=== PATIENT | male | born 1960 | race Caucasian/White ===

== ENCOUNTER 2016-06-07 17:34 | Observation (INO) ==
[2016-06-07] MEDS ORDERED: Potassium Chloride Elixir 20 MEQ/15 ML UDC PO STA (17:39)
--- NOTE | 2016-06-07 18:09 | Emergency Department Note ---
Disposition Clinical Impression: Hypokalemia Atrial fibrillation Qualifiers: Atrial fibrillation type: paroxysmal Qualified Code(s): I48.0 - Paroxysmal atrial fibrillation Disposition: Admitted As Inpatient Condition: Fair General Adult HPI - General Chief complaint: ED Chest Pain Stated complaint: CritLowPotassium/Chest pain Time Seen by Provider: 06/07/16 17:37 Source: patient, family Limitations: no limitations - History of Present Illness HPI Narrative: Mr. Moore, a 55yo male, presents from home by POV to the ER with CC: hypokalemia. Routing outpatient labwork was drawn today and his PCP phoned him to instruct him to present to the ER. Patient has a history of hypokalemia. He is symptomatic at this time. Onset 3 days ago. His symptoms are described as generalized malaise and weakness, bilateral hand numbness and tingling, exertional dyspnea. Patient's PCP had him on a reginem of 40mg KCl TID. She was contemplating adjustment to 60mg KCL TID. 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 After this, he became symptomatic. Anticoagulated on ASA 324mg PMH: CHF systolic, ACS with stent, HTN, HLD, COPD, CKD, DM II insulin dependent , paroxysmal A. Fib on cardizem CD and metoprolol, GERD, morbid obesity, GORGE, hx hypokalemic alkalosis. PCP: Yulia Casiano CNP Bag Machine Helper: Dr. Chavira Admits: malaise, weakness, numbness/tingling, chest palpitations, light headedness Denies: fever, chills nausea, vomiting, abd pain, headache, changes in vision Pain Scale: 0 - Related Data Home Medications Medication Instructions Recorded Confirmed Albuterol Sulfate [Ventolin Hfa] 2 puff IH Q4H PRN 02/22/15 06/07/16 Alprazolam [Xanax] 1 mg PO TID PRN 02/22/15 06/07/16 Atorvastatin [Lipitor] 40 mg PO HS 02/22/15 06/07/16 Fenofibrate [Lofibra] 160 mg PO QAM 02/22/15 06/07/16 Hydralazine HCl 25 mg PO BID 02/22/15 06/07/16 Oxycodone HCl/Acetaminophen 1 each PO TID PRN 02/22/15 06/07/16 [Percocet 7.5-325 mg Tablet] Pantoprazole Sodium [Protonix] 40 mg PO QAM 02/22/15 06/07/16 Beclomethasone Diprop 80mcg [QVAR 1 puff IH BID 05/17/15 06/07/16 80 mcg] Docusate Sodium [Colace] 100 mg PO BID 05/17/15 06/07/16 Aspirin 325 mg PO DAILY 08/31/15 06/07/16 Diltiazem CD (24hr) [Cardizem CD] 300 mg PO QPM 08/31/15 06/07/16 Polyethylene Glycol 3350 [MiraLAX] 17 gm PO DAILY 08/31/15 06/07/16 Insulin ASPART [Novolog Flexpen] 0 - 18 unit SQ TID MDD per sliding 11/24/15 scale Furosemide [Lasix] 60 mg PO BID 06/07/16 06/07/16 Gabapentin [Gabapentin] 600 mg PO TID 06/07/16 06/07/16 GlipiZIDE [Glipizide] 10 mg PO BID 06/07/16 06/07/16 Metolazone [Metolazone] 5 mg PO DAILY 06/07/16 06/07/16 Spironolactone [Aldactone] 25 mg PO DAILY 06/07/16 06/07/16 Previous Rx's Medication Instructions Recorded Insulin DETEMIR [Levemir] 30 unit SQ HS #100 ml 09/01/15 Metoprolol [Lopressor] 200 mg PO BID #120 tablet 09/01/15 Potassium Chloride 20 meq PO TID 30 Days 11/25/15 Allergies Allergy/AdvReac Type Severity Reaction Status Date / Time hydrocodone [From Vicodin] AdvReac Unknown Itching Verified 11/25/15 09:13 Morphine Sulfate AdvReac Unknown Vomiting Uncoded 05/17/15 09:10 All systems ED: reviewed and negative except as stated. (as per HPI) Past Medical History - Past Medical History Medical history: Reports: arthritis, atrial fibrillation, cancer, cardiomyopathy , CHF, COPD, coronary artery disease, dementia, diabetes, GERD, hyperlipidemia, hypertension, osteoporosis, renal disease, other Surgical history: Reports: angioplasty/stent, other Psychiatric history: Reports: anxiety, bipolar, depression - Social History Smoking Status: Current every day smoker Smokeless Tobacco Status: (hx alcoholism-quit Mar 2015) Alcohol use: Reports: none Drug use: Reports: none Physical Exam General: Patient is alert, oriented, and in no acute distress. HEENT: No facial asymmetry. Head is normocephalic and atraumatic. Trachea midline. No lymphadenopathy. Cardiovascular: Heart regular rate and rhythm without clicks, rubs, gallops, or murmurs. No JVD. PMI nondisplaced. Respiratory: Symmetric chest rise with good restaurant effort. Prolonged expiratory phase. Breath sounds have diffuse wheezes. No crackles or rhonchi. Abdomen: Obese. Bowel sounds present normoactive x-4 quadrants. Abdomen is soft , nondistended, and nontender. Unable to assess organomegaly secondary to patient's body habitus. Psych: Patient's affect is appropriate for situation. - General Limitations: no limitations General appearance: alert, in no apparent distress Course Course Narrative: Lab work from 11am today reviewed. will not repeat at this time. Will begin with 50 IU of KCL elixer. Anticipate admission for symptomatic hypokalemia, Gustavo , A. Fib. Vital Signs Temperature 98.3 F 06/07/16 17:39 Pulse Rate 93 06/07/16 17:39 Respiratory Rate 20 06/07/16 17:39 Blood Pressure 103/75 06/07/16 17:39 O2 Sat by Pulse Oximetry 95 06/07/16 17:39 Temperature 97.4 F L 06/07/16 21:20 Pulse Rate 89 06/07/16 21:20 Respiratory Rate 16 06/07/16 21:20 Blood Pressure 116/81 06/07/16 21:20 O2 Sat by Pulse Oximetry 96 06/07/16 21:20 Oxygen Delivery Oxygen Delivery Nasal Cannula
--- NOTE | 2016-06-07 19:25 | Emergency Department Note ---
Disposition Clinical Impression: Hypokalemia, Atrial fibrillation Disposition: Admitted As Inpatient Condition: Fair General Adult HPI - General Chief complaint: ED Chest Pain Stated complaint: CritLowPotassium/Chest pain Time Seen by Provider: 06/07/16 17:37 Source: patient, family Limitations: no limitations - History of Present Illness Pain Scale: 0 - Related Data Home Medications Medication Instructions Recorded Confirmed Albuterol Sulfate [Ventolin Hfa] 2 puff IH Q4H PRN 02/22/15 06/07/16 Alprazolam [Xanax] 1 mg PO TID PRN 02/22/15 06/07/16 Atorvastatin [Lipitor] 40 mg PO HS 02/22/15 06/07/16 Fenofibrate [Lofibra] 160 mg PO QAM 02/22/15 06/07/16 Hydralazine HCl 25 mg PO BID 02/22/15 06/07/16 Oxycodone HCl/Acetaminophen 1 each PO TID PRN 02/22/15 06/07/16 [Percocet 7.5-325 mg Tablet] Pantoprazole Sodium [Protonix] 40 mg PO QAM 02/22/15 06/07/16 Beclomethasone Diprop 80mcg [QVAR 1 puff IH BID 05/17/15 06/07/16 80 mcg] Docusate Sodium [Colace] 100 mg PO BID 05/17/15 06/07/16 Aspirin 325 mg PO DAILY 08/31/15 06/07/16 Diltiazem CD (24hr) [Cardizem CD] 300 mg PO QPM 08/31/15 06/07/16 Polyethylene Glycol 3350 [MiraLAX] 17 gm PO DAILY 08/31/15 06/07/16 Insulin ASPART [Novolog Flexpen] 0 - 18 unit SQ TID MDD per sliding 11/24/15 scale Furosemide [Lasix] 60 mg PO BID 06/07/16 06/07/16 Gabapentin [Gabapentin] 600 mg PO TID 06/07/16 06/07/16 GlipiZIDE [Glipizide] 10 mg PO BID 06/07/16 06/07/16 Metolazone [Metolazone] 5 mg PO DAILY 06/07/16 06/07/16 Spironolactone [Aldactone] 25 mg PO DAILY 06/07/16 06/07/16 Previous Rx's Medication Instructions Recorded Insulin DETEMIR [Levemir] 30 unit SQ HS #100 ml 09/01/15 Metoprolol [Lopressor] 200 mg PO BID #120 tablet 09/01/15 Potassium Chloride 20 meq PO TID 30 Days 11/25/15 Allergies Allergy/AdvReac Type Severity Reaction Status Date / Time hydrocodone [From Vicodin] AdvReac Unknown Itching Verified 11/25/15 09:13 Morphine Sulfate AdvReac Unknown Vomiting Uncoded 05/17/15 09:10 Past Medical History - Past Medical History Medical history: Reports: arthritis, atrial fibrillation, cancer, cardiomyopathy , CHF, COPD, coronary artery disease, dementia, diabetes, GERD, hyperlipidemia, hypertension, osteoporosis, renal disease, other Surgical history: Reports: angioplasty/stent, other Psychiatric history: Reports: anxiety, bipolar, depression - Social History Smoking Status: Current every day smoker Smokeless Tobacco Status: (hx alcoholism-quit Mar 2015) Alcohol use: Reports: none Drug use: Reports: none Physical Exam - General Limitations: no limitations General appearance: alert, in no apparent distress Course - Reevaluation(s) Reevaluation #1: I saw the patient with the resident, Dr. Danielson. Patient presents with an abnormally low potassium level of 2.6. He has been having a long history of trouble with low potassium. He has been admitted to the hospital for low potassium before. He has had some recent adjustments in his potassium and diuretic doses in the effort to bring his potassium up at today was very low. The concern is that the patient feels incredibly weak which is something new for the patient. He does not report any other sources of potassium loss like diarrhea. he denies any other acute illnesses. We gave him some oral potassium here. We have called the hospitalist and arranged admission. They requested an additional dose of oral potassium before the patient leaves the ER. We have ordered that and her waiting transport. Time: 19:24 Vital Signs Temperature 98.3 F 06/07/16 17:39 Pulse Rate 93 06/07/16 17:39 Respiratory Rate 20 06/07/16 17:39 Blood Pressure 103/75 06/07/16 17:39 O2 Sat by Pulse Oximetry 95 06/07/16 17:39 Temperature 97.4 F L 02/16/17 21:20 Pulse Rate 89 06/07/16 21:20 Respiratory Rate 16 06/07/16 21:20 Blood Pressure 116/81 06/07/16 21:20 O2 Sat by Pulse Oximetry 96 06/07/16 21:20 Oxygen Delivery Oxygen Delivery Nasal Cannula Attestation Statement - Attestation Attestation: I, Dr. Choudhury, examined this patient [id number] and my medical decision- making was reviewed with Dr. Crystal, Resident Physician. I agree with the documented findings, disposition and treatment plan as described except to the extent set forth below. Please see my progress notes for details.
[2016-06-07] MEDS ORDERED: Pantoprazole 40 MG VIAL IVP STA (20:07)
[2016-06-07] MEDS ORDERED: *HR* Promethazine 25 MG/ML VIAL IVP PRN (20:07)
[2016-06-07] MEDS ORDERED: Ketorolac 30 MG/ML VIAL IVP PRN (20:07)
[2016-06-07] MEDS ORDERED: Acetaminophen 325 MG TABLET PO PRN (20:07)
[2016-06-07] MEDS ORDERED: Benzonatate 100 MG CAPSULE PO PRN (20:07)
[2016-06-07] MEDS ORDERED: Naloxone 0.4 MG/ML INJ IVP PRN (20:07)
[2016-06-07] MEDS ORDERED: 0.9 % Sodium Chloride w KCl 20 MEQ/1,000 ML MLS IVC SCH (20:15)
--- NOTE | 2016-06-07 20:25 | Internal Med History&Physical ---
Date of Encounter: 06/07/16 Time of Encounter: 20:00 Assessment and Plan (1) Chest pain, rule out acute myocardial infarction Current visit: Yes Status: Acute . (2) Chest pain with moderate risk of acute coronary syndrome Current visit: Yes Status: Acute . (3) Hypokalemia, excessive renal losses Current visit: Yes Status: Acute . (4) Acute kidney injury superimposed on chronic kidney disease Current visit: Yes Status: Acute . (5) Chronic coronary artery disease Current visit: Yes Status: Chronic . (6) Chronic diastolic (congestive) heart failure Current visit: Yes Status: Chronic . (7) Chronic respiratory failure with hypoxia and hypercapnia Current visit: Yes Status: Chronic . (8) Dementia Current visit: Yes Status: Chronic . Qualifiers: Dementia type: unspecified type Dementia behavioral disturbance: without behavioral disturbance Qualified Code(s): F03.90 - Unspecified dementia without behavioral disturbance (9) Hypokalemic alkalosis Current visit: Yes Status: Acute . (10) Hypoventilation associated with obesity syndrome Current visit: Yes Status: Chronic . (11) GORGE (obstructive sleep apnea) Current visit: Yes Status: Chronic . (12) Atrial fibrillation Current visit: Yes Status: Chronic . Qualifiers: Atrial fibrillation type: paroxysmal Qualified Code(s): I48.0 - Paroxysmal atrial fibrillation (13) Bipolar disorder Current visit: Yes Status: Chronic . Qualifiers: Active/Remission status: remission status unspecified Qualified Code(s): F31.9 - Bipolar disorder, unspecified (14) Debility, unspecified Current visit: Yes Status: Chronic . (15) Morbid obesity with BMI of 45.0-49.9, adult Current visit: Yes Status: Chronic . (16) Nicotine dependence with nicotine-induced disorder Current visit: Yes Status: Chronic . Qualifiers: Nicotine product type: cigarettes Qualified Code(s): F17.219 - Nicotine dependence, cigarettes, with unspecified nicotine-induced disorders (17) Type 2 diabetes mellitus Current visit: Yes Status: Chronic . Qualifiers: Diabetes mellitus complication status: with unspecified complications Diabetes mellitus terminal superintendent insulin use: unspecified terminal superintendent insulin use status Qualified Code(s): E11.8 - Type 2 diabetes mellitus with unspecified complications Internal Medicine - H&P: HPI Chief complaint: Chest pain Admitted From: Emergency Dept Plans for Post Hospital Care: Home History of present illness: Mr. Moore is a 55 year old male with history significant for chronic hypokalemic metabolic-alkalosis, CKD III, type 2 diabetes mellitus, CAD/ PTCAstent/AMI, isch CMP/diastolic CHF, P atrial fibrillation, COPD-emphysema, chronic hypoxic hypercapnic respiratory failure, GORGE (nocturnal CPAP dependent)/ OHS, and she unspecified, hypertension, dyslipidemia, osteoarthritis/ osteoporosis, GERD, bipolar disorder/depression anxiety, history of chronic alcoholism/abstinent since 03/2015, obesity, nicotine dependency (>80pk-yrs). The patient was visited and interviewed and examined. The patient is admitted to [facility] via the emergency department when he presents in the company of family with reports of chest pain and recent laboratory tests showing very low potassium. Laboratory studies had been requested by his primary care physician. These were performed approximately 11 AM the day of admission. Measured potassium came back at 2.6. Patient acknowledged doing some generalized weakness and malaise preceding 3 days to let to his consultation with his primary care physician and measurement of his laboratory studies. He described his weakness is being in severe and new for him in spite of a very long history of problematic hypokalemia. He acknowledged some chest discomfort with palpitations, bilateral hand numbness and tingling as well as exertional dyspnea during this period of time as well. He denied any fevers chills or sweats. Denied nausea vomiting diarrhea constipation. Denied any dysuria frequency or hematuria. Denied any evidence of bleeding or increased easy bruisability. Medications have undergone a change as pertains to his potassium repletion. The patient previously had been on a regimen of 40 mEq of potassium chloride 3 times daily with anticipation of this increasing to 60 mEq tablets of potassium chloride 3 times daily. However recent evaluation by his assessment consultant I let the decrease in his potassium chloride repletion down to 20 mEq 3 times daily plus an adjustment in his chronic diuretic dosages as after this adjustment that he began to notice symptoms which became more severe in 3 days leading up to presentation. Findings of the ED: Temperature 98.3 pulse 90-113 respirations 20 BP 100-125/75- 95. O2 saturation 95% on 2 L per nasal cannula. Preadmission laboratory: Basic metabolic panel normal except potassium 2.6 chloride 89. Carbon dioxide 32. BUN 31 creatinine 1.46 GFR 51. Glucose 148 osmolality 295. Preliminary impression suggests severe, chronic recurrent, hyperkalemia in the setting of hypokalemic metabolic alkalosis. Likely due to renal tubular acidosis with renal wastage of potassium. Potassium chloride repletion will proceed as data is collected to fine tune the level of total tubular defect and possible treatment options. Patient is at risk for further clinical decline due to his presenting chief complaint, findings and comorbidities. Workup and treatments will proceed comprehensively. Cumulative laboratory and radiographic data base will be considered and discussed. Pertinent ancillary medical records including ECW and PCI documentation when available was reviewed and considered. Given the patient's presenting concerns, past medical history, clinical findings and symptoms, he is admitted at this time will undergo further evaluation and disposition. Orders were written as per the computerized physician order entry representative system.......................................................................... .................... Consultative opinions will be sought as clinical circumstances justify. Pain management needs will be addressed. Laboratory and radiographic data base will be updated as appropriate. Studies include: random urine electrolyes, UA, urine C/S, cardiac injury panel, BNP, CPK, metabolic and hematologic panel, magnesium, phosphorus, ionized calcium, thyroid panel, lipid profile, A1c, C-peptide, CRP, sedimentation rate, blood gas , lactic acid, UDS, aldosterone, renin activity, serologies, etc. Precautions: Aspiration, fall, delirium protocol/surveillance initiated. Telemetry with continuous hemodynamic monitoring and pulse oximetry initiated. Orthostatic vital sign. Empiric antibiotic coverage: pending culture data. Special studies: US retroperitoneum, chest x-ray, telemetry, EKG. Pulmonary toilet: Incentive spirometry, aerosol bronchodilator, mucolytic, antitussive, supplemental oxygen. Corticosteroid therapyPRN. CPAP/BiPAP supplemental oxygen delivery. Aerosol Mucomyst therapyPRN. Fluid and electrolyte repletion efforts will proceed. Careful attention to fluid balance and renal recovery will be emphasized. Avoidance of nephrotoxic exposure and adverse drug drug interaction in the setting of impaired renal function will be monitored closely. Acute coronary syndrome protocol/surveillance initiated. Beta edna, aspirin , statin,. As needed nitrates. As needed morphine. Supplemental oxygen. Currently on RAJAT inhibitor or arm due to ongoing potassium sparing diuretic therapies. Prescribed diuretic treatments (metolazone, Aldactone, furosemide) with held pending repletion of potassium chloride deficit. DVT and PUD prophylaxis initiated: PPI therapy, intermittent pneumatic cuffs/ TEDs. Subcutaneous heparin/Lovenox. Early ambulation will be encouraged. Immunization updates recommended. Influenza and pneumococcal vaccinations as part of ongoing preventative healthcare recommendations strongly recommended. Smoking cessation counseling briefly addressed. Patient accepts nicotine substitution during this admission. Advanced care directive discussion briefly addressed. Patient does not declare any healthcare restrictions at this time. Cardiovascular risk appraisal and cardiovascular risk reduction efforts will be emphasized. Physical and occupational therapy may be consulted to evaluate/assess patient's functional capacity and progress mobility if circumstances justify. Sliding scale/basal/nutritional insulin coverage, ADA dietary restraint and schedule an as-needed basis fingerstick glucose assessments were initiated. Nutrition/diabetes education counseling may be considered as circumstances justify. Outpatient medication schedules will be reviewed, confirmed and facilitated as appropriate. Reconciliation of home treatments including adjustments, substitutions and reintroduction into the treatment regimen will address necessary maintenance therapies for chronic pre-existing medical conditions. Plan of care has been reviewed and discussed in detail with the patient. Questions addressed. Hospital course will depend upon clinical findings, treatment response and potential consultative interventions. Patient is at risk for further acute clinical decline and morbidity due to his presenting chief complaints, findings and comorbidities. Condition is serious. Prognosis is guarded. CODE STATUS is full. Past Med Surg Social Fam HX - Past Medical History Source: old records reviewed Medical history: arthritis, atrial fibrillation, cancer, cardiomyopathy, CHF, COPD (Hypoxic-hypercapnic respiratory failure. GORGE on CPAP. OHS.), coronary artery disease, dementia, diabetes, GERD, hyperlipidemia, hypertension, osteoporosis (Chronic musculoskeletal pain syndrome.), renal disease, other ( History of alcohol abuse and dependency; abstinent since 2014.) Psychiatric history: anxiety, bipolar, depression, other - Past Surgical History Surgical History: angioplasty/stent, other - Social History Smoking Status: Heavy tobacco smoker Packs per day: 2ppd x40yrs Smokeless Tobacco Status: (hx alcoholism-quit Mar 2015) Alcohol use: none, unknown (Prior history of 8-10 beers per day mostly for adult life. Reports abstinence since 2014.) Drug use: none, unknown Occupational status: unemployed, disabled Current living situation: Home - Independent Activity Level: Independent ambulation, Mostly sedentary Recent Out of Country Travel Within the Last 8 Weeks: No Exposure or Possible Exposure to Illness During Travel: No - Family History Father Adopted: No Family Member Ethnicity: Non- Living Status: Still Living Hx Family Cardiac Disorders: Yes Mother Living Status: Still Living Internal Medicine - H&P: Meds Albuterol Sulfate [Ventolin Hfa] 2 puff IH Q4H PRN 02/22/15 [History] Alprazolam [Xanax] 1 mg PO TID PRN 02/22/15 [History] Atorvastatin [Lipitor] 40 mg PO HS 02/22/15 [History] Fenofibrate [Lofibra] 160 mg PO QAM 02/22/15 [History] Hydralazine HCl 25 mg PO BID 02/22/15 [History] Oxycodone HCl/Acetaminophen [Percocet 7.5-325 mg Tablet] 1 each PO TID PRN 02/22 [History] Pantoprazole Sodium [Protonix] 40 mg PO QAM 02/22/15 [History] Beclomethasone Diprop 80mcg [QVAR 80 mcg] 1 puff IH BID 05/17/15 [History] Docusate Sodium [Colace] 100 mg PO BID 05/17/15 [History] Aspirin 325 mg PO DAILY 08/31/15 [History] Diltiazem CD (24hr) [Cardizem CD] 300 mg PO QPM 08/31/15 [History] Polyethylene Glycol 3350 [MiraLAX] 17 gm PO DAILY 08/31/15 [History] Insulin DETEMIR [Levemir] 30 unit SQ HS #100 ml 09/01/15 [Rx] Metoprolol [Lopressor] 200 mg PO BID #120 tablet 09/01/15 [Rx] Insulin ASPART [Novolog Flexpen] 0 - 18 unit SQ TID MDD per sliding scale [History] Potassium Chloride 20 meq PO TID 30 Days 11/25/15 [Rx] Furosemide [Lasix] 60 mg PO BID 06/07/16 [History] Gabapentin [Gabapentin] 600 mg PO TID 06/07/16 [History] GlipiZIDE [Glipizide] 10 mg PO BID 06/07/16 [History] Metolazone [Metolazone] 5 mg PO DAILY 06/07/16 [History] Spironolactone [Aldactone] 25 mg PO DAILY 06/07/16 [History] Allergies hydrocodone [From Vicodin] Adverse Reaction (Unknown, Verified 11/25/15 09:13) Itching Morphine Sulfate Adverse Reaction (Unknown, Uncoded 05/17/15 09:10) Vomiting All Systems PM: A 10-system review of systems was performed and is negative for pertinent findings except as documented above in the HPI. - Constitutional Constitutional: as per HPI, fatigue, malaise, weakness, no chills, no fever(s), no night sweats - EENT Eyes: as per HPI, no change in vision, no discharge, no pain, no photophobia Ears: as per HPI, no ear discharge, no ear pain, no tinnitus Nose, mouth and throat: as per HPI, no dysphagia, no nasal discharge, no neck pain, no sore throat - Cardiovascular Cardiovascular ROS IM: as per HPI, chest pain, lightheadedness, other, no diaphoresis, no dyspnea, no palpitations, no syncope - Respiratory Respiratory: as per HPI, wheezing, other, no cough, no dyspnea, no excessive phlegm production - Gastrointestinal Gastrointestinal: as per HPI, no abdominal pain, no diarrhea, no hematemesis, no hematochezia, no melena, no nausea, no vomiting - Genitourinary Genitourinary ROS male: as per HPI, other - Musculoskeletal Musculoskeletal ROS IM: as per HPI, no numbness, no tingling - Integumentary Integumentary IM: as per HPI, no rash, no unusual bruising - Neurological Neurological ROS: as per HPI, frequent falls, headache(s), weakness, other, no confusion, no convulsions, no focal weakness, no numbness, no tingling, no tremor(s) - Psychiatric Psychiatric: as per HPI - Endocrine Endocrine IM: as per HPI - Hematologic/Lymphatic Hematologic/Lymphatic: as per HPI - Allergic/Immunologic Allergic/Immunologic: as per HPI - Constitutional Vitals: Temp Pulse Resp BP Pulse Ox 98.3 F 113 20 125/95 95 06/07/16 17:39 06/07/16 18:28 06/07/16 18:28 06/07/16 18:28 06/07/16 18:28 General appearance: Present: mild distress, A&O X 3, morbidly obese, answers questions appropriately - Head Head exam: Present: atraumatic, normocephalic - Eye Eye exam: Present: EOMI, PERRL, conjuntiva pink, sclera anicteric Pupils: Present: normal accommodation, PERRL - ENT ENT exam: Present: mucous membranes moist, normal oropharynx - Neck Neck exam general surgery: Present: full ROM, supple, trachea midline. Absent: lymphadenopathy - Respiratory Respiratory exam: Present: decreased breath sounds, CTAB. Absent: accessory muscle use, rales, rhonchi, wheezes - Cardiovascular Cardiovascular exam: Present: distant heart sounds, RRR, +S1, +S2. Absent: diastolic murmur, gallop, rubs, systolic murmur - GI/Abdominal GI/Abdominal exam: Present: distended, normal bowel sounds, soft, no peritoneal signs. Absent: tenderness - Extremities Exam Extremities exam: Present: full ROM, warm, radial pulses palpable and symetrical. Absent: calf tenderness, cyanotic, pedal edema - Neurological Exam Neurological exam: Present: alert, CN II-XII intact, oriented X3, no focal deficits. Absent: pronater drift, facial droop, speech deficit - Psychiatric Psychiatric exam: Present: normal affect, normal mood - Skin Skin exam: Present: dry, intact, warm. Absent: petechiae, rash, urticaria, vesicles Internal Med - H&P Results - Labs CBC & Chem 7: 06/08/16 04:58 06/08/16 04:58 - Impressions Vital Signs Temp Pulse Resp BP Pulse Ox 06/07/16 18:28 113 20 125/95 95 06/07/16 17:50 112 20 108/88 95 06/07/16 17:43 96 06/07/16 17:39 98.3 F 93 20 103/75 95 Intake and Output 06/07/16 06/07/16 06/07/16 07:59 15:59 23:59 Other: Weight 155.582 kg Patient Weight 06/07/16 23:59 Weight 155.582 kg Allergies Allergy/AdvReac Type Severity Reaction Status Date / Time hydrocodone [From Vicodin] AdvReac Unknown Itching Verified 11/25/15 09:13 Morphine Sulfate AdvReac Unknown Vomiting Uncoded 05/17/15 09:10 Abnormal lab results VBG pH 7.47 pH Units (7.32-7.42) H 06/07/16 22:20 VBG pCO2 57 mmHg (41-51) H 06/07/16 22:20 VBG pO2 127 mmHg (25-40) H 06/07/16 22:20 VBG HCO3 41.5 mEq/L (21-27) H 06/07/16 22:20 Potassium 2.8 mEq/L (3.5-4.5) L 06/08/16 04:58 Chloride 91 mEq/L (98-109) L 06/08/16 04:58 Carbon Dioxide 34 mEq/L (19-29) H 06/08/16 04:58 BUN 33 mg/dL (8-26) H 06/08/16 04:58 Creatinine 1.65 mg/dL (0.72-1.25) H 06/08/16 04:58 Est GFR ( Amer) 52 (> 60) L 06/08/16 04:58 Est GFR (Non-Af Amer) 43 (> 60) L 06/08/16 04:58 Glucose 223 mg/dL (70-99) H 06/08/16 04:58 POC Glucose 216 (58-89) H 06/07/16 21:31 Hemoglobin A1c 7.8 % (-5.6) H 06/08/16 04:58 Calculated Osmolality 304 (280-300) H 06/08/16 04:58 Ionized Calcium 1.06 mmol/L (1.15-1.35) L 06/07/16 22:20 Globulin 3.7 g/dL (2.4-3.5) H 06/08/16 04:58 Albumin/Globulin Ratio 1.0 (1.1-2.2) L 06/08/16 04:58 Triglycerides 279 mg/dL (< 150) H 06/08/16 04:58 VLDL Cholesterol, Calc 56 mg/dL (< 31) H 06/08/16 04:58 HDL Cholesterol 25 mg/dL (40-59) L 06/08/16 04:58 Cholesterol/HDL Ratio 5.5 (0-4.9) H 06/08/16 04:58 U Benzodiazepines Scrn Positive ng/mL (Jkrtzt=549) H 06/07/16 22:30 Laboratory Results WBC 10.1 K/mcL (4.3-11.1) 06/08/16 04:58 RBC 5.24 M/mcL (4.19-5.50) 06/08/16 04:58 Hgb 15.4 g/dL (12.9-16.9) 06/08/16 04:58 Hct 44.6 % (37.5-50.1) 06/08/16 04:58 MCV 85.1 fL (83.0-100.0) 06/08/16 04:58 MCH 29.4 pg (28.0-33.3) 06/08/16 04:58 MCHC 34.5 g/dL (31.6-35.5) 06/08/16 04:58 RDW 13.8 % (11.5-14.5) 06/08/16 04:58 Plt Count 210 K/mcL (140-400) 06/08/16 04:58 MPV 11.6 fL (9.4-12.4) 06/08/16 04:58 Immature Gran % 0.5 % (0-4) 06/08/16 04:58 Seg Neutrophils % 61.9 % 06/08/16 04:58 Lymphocytes % 22.9 % 06/08/16 04:58 Monocytes % 11.8 % 06/08/16 04:58 Eosinophils % 2.6 % 06/08/16 04:58 Basophils % 0.3 % 06/08/16 04:58 Neutrophils # 6.3 K/mcL (1.6-8.9) 06/08/16 04:58 Lymphocytes # 2.3 K/mcL (0.6-4.6) 06/08/16 04:58 Monocytes # 1.2 K/mcL (0.0-1.3) 06/08/16 04:58 Eosinophils # 0.3 K/mcL (0.0-0.6) 06/08/16 04:58 Basophils # 0.0 K/mcL (0.0-0.2) 06/08/16 04:58 PT 11.4 Seconds (9.4-12.1) 06/08/16 04:58 INR 1.1 06/08/16 04:58 APTT 30.5 Seconds (26.0-36.0) 06/08/16 04:58 VBG pH 7.47 pH Units (7.32-7.42) H 06/07/16 22:20 VBG pCO2 57 mmHg (41-51) H 06/07/16 22:20 VBG pO2 127 mmHg (25-40) H 06/07/16 22:20 VBG HCO3 41.5 mEq/L (21-27) H 06/07/16 22:20 Sodium 140 mEq/L (136-145) 06/08/16 04:58 Potassium 2.8 mEq/L (3.5-4.5) L 06/08/16 04:58 Chloride 91 mEq/L (98-109) L 06/08/16 04:58 Carbon Dioxide 34 mEq/L (19-29) H 06/08/16 04:58 BUN 33 mg/dL (8-26) H 06/08/16 04:58 Creatinine 1.65 mg/dL (0.72-1.25) H 06/08/16 04:58 Est GFR ( Amer) 52 (> 60) L 06/08/16 04:58 Est GFR (Non-Af Amer) 43 (> 60) L 06/08/16 04:58 BUN/Creatinine Ratio 20 (6-26) 06/08/16 04:58 Glucose 223 mg/dL (70-99) H 06/08/16 04:58 POC Glucose 216 (58-89) H 06/07/16 21:31 Est Mean Plasma Glucose 177 mg/dl 06/08/16 04:58 Hemoglobin A1c 7.8 % (-5.6) H 06/08/16 04:58 Calculated Osmolality 304 (280-300) H 06/08/16 04:58 Calcium 10.1 mg/dL (8.6-10.8) 06/08/16 04:58 Ionized Calcium 1.06 mmol/L (1.15-1.35) L 06/07/16 22:20 Phosphorus 4.2 mg/dL (2.3-4.7) 06/07/16 20:48 Magnesium 2.0 mg/dL (1.6-2.6) 06/07/16 20:48 Total Bilirubin 0.7 mg/dL (0.2-1.2) 06/08/16 04:58 AST 22 Units/L (5-34) 06/08/16 04:58 ALT 20 Units/L (0-55) 06/08/16 04:58 Alkaline Phosphatase 71 Units/L (38-126) 06/08/16 04:58 Creatine Kinase 170 Units/L (30-200) 06/07/16 20:48 Troponin I 0.02 ng/mL (0-0.03) 06/07/16 22:20 B-Natriuretic Peptide 27 pg/mL (0-100) 06/08/16 04:58 Serum Total Protein 7.4 g/dL (6.0-8.3) 06/08/16 04:58 Albumin 3.7 g/dL (3.5-5.0) 06/08/16 04:58 Globulin 3.7 g/dL (2.4-3.5) H 06/08/16 04:58 Albumin/Globulin Ratio 1.0 (1.1-2.2) L 06/08/16 04:58 Triglycerides 279 mg/dL (< 150) H 06/08/16 04:58 Cholesterol 138 mg/dL (< 200) 06/08/16 04:58 LDL Cholesterol, Calc 57 mg/dL (0-99) 06/08/16 04:58 VLDL Cholesterol, Calc 56 mg/dL (< 31) H 06/08/16 04:58 HDL Cholesterol 25 mg/dL (40-59) L 06/08/16 04:58 Cholesterol/HDL Ratio 5.5 (0-4.9) H 06/08/16 04:58 Amylase 34 Units/L (25-125) 06/07/16 20:48 Lipase 49 Units/L (8-78) 06/07/16 20:48 Urine Color Yellow (Yellow) 06/07/16 22:30 Urine Clarity Clear (Clear) 06/07/16 22:30 Urine pH 7.0 pH Units (5.0-8.0) 06/07/16 22:30 Ur Specific [place] 1.015 (1.010-1.025) 06/07/16 22:30 Urine Protein Negative mg/dL (Neg-Trace) 06/07/16 22:30 Urine Glucose (UA) Normal mg/dL (Normal) 06/07/16 22:30 Urine Ketones Negative mg/dL (Negative) 06/07/16 22:30 Urine Blood Negative (Negative) 06/07/16 22:30 Urine Nitrite Negative (Negative) 06/07/16 22:30 Urine Bilirubin Negative (Negative) 06/07/16 22:30 Urine Urobilinogen Normal mg/dL (Normal) 06/07/16 22:30 Ur Leukocyte Esterase Negative (Negative) 06/07/16 22:30 Urine Osmolality 333 mOsm/kg (300-1090) 06/07/16 22:30 Urine Creatinine 60 mg/dL 06/07/16 22:30 Urine Microalbumin 5 mg/L 06/07/16 22:30 Microalb/Creat Ratio 8 (0-30) 06/07/16 22:30 Protein/Creatinin Ratio 0.12 mg/mg (0-0.20) 06/07/16 22:30 Urine Sodium 63.0 mEq/L 06/07/16 22:30 Urine Potassium 50.5 mEq/L 06/07/16 22:30 Urine Chloride 91 mEq/L 06/07/16 22:30 Urine Calcium 4.7 mg/dL 06/07/16 22:30 Urine Total Protein < 7 mg/dL (1-14) 06/07/16 22:30 Urine Opiates Screen Negative ng/mL (Eligex=430) 06/07/16 22:30 Ur Barbiturates Screen Negative ng/mL (Odefas=744) 06/07/16 22:30 Ur Phencyclidine Scrn Negative ng/mL (Cutoff=25) 06/07/16 22:30 Ur Amphetamines Screen Negative ng/mL (Kbkghl=8303) 06/07/16 22:30 U Benzodiazepines Scrn Positive ng/mL (Jynubj=017) H 06/07/16 22:30 Urine Cocaine Screen Negative ng/mL (Cutoff= 300) 06/07/16 22:30 U Marijuana (THC) Screen Negative ng/mL (Cutoff = 50) 06/07/16 22:30 ED Activity Last Name: Oscar Status: Admitted Observation Patient First Name: Jovani Priority: 2 Middle: Maxim Condition: Birthdate: 1960 Arrival Date/Time: 06/07/16 17:34 Age at Arrival: 55 Arrival Mode: Ambulance Sex: M Triaged At: 06/07/16 17:39 Language: Kinyarwanda Time Seen by Provider: 06/07/16 17:37 Stated Complaint: CritLowPotassium/Chest pain Chief Complaint: ED Chest Pain Other Complaint: ED Recheck/Abnormal Lab/Rx ED Location: [facility] ED Area: 27 Station: 1 Group: S ED Provider: Jovani Choudhury ED Midlevel Provider: Macario Crystal ED Nurse: Primary Care Provider: Yulia Casiano Status/Phase DtTm/Value User/Action Admitted Observation Patient 06/07/16 19:50:07 Daemon,Background Referrals (Provider) Yulia Casiano ALMOND BLANCHER HAND Deleted 06/07/16 19:49:53 Anthony Joseph Attending Provider Leatha Jackson Admitting Provider Carter Escudero New With Doctor 06/07/16 18:43:49 Macario Crystal Referrals (Provider) Yulia Casiano CNP Added 06/07/16 18:30:22 Rakesh Turner Primary Care Provider Yulia Casiano CNP Edit 06/07/16 18:24:49 Macario Crystal Referrals (Provider) PCP NO Deleted 06/07/16 18:09:14 Macario Crystal Referrals (Provider) PCP NO Added 06/07/16 17:48:47 Rakesh Turner Primary Care Provider PCP NO New 06/07/16 17:39 Palmira Tim Other Complaint ED Recheck/Abnormal Lab/Rx Added Chief Complaint ED Chest Pain Edit 06/07/16 17:37:14 Jovani Choudhury Ed Provider Jovani Choudhury New With Midlevel 06/07/16 17:37:06 Macario Crystal Midlevel Provider Macario Crystal New In Room 06/07/16 17:35:09 Hipolito Curtis Stated Complaint CritLowPotassium/Chest pain Edit Received 06/07/16 17:34:13 Efraín Brito Chief Complaint ED Recheck/Abnormal Lab/Rx New Stated Complaint ABNORMAL LABS New Assessments and Treatments 12 lead ECG assessment Start: 06/07/16 17: 40 Freq: NOW Status: Complete Document 06/07/16 17:43 TJS (Rec: 06/07/16 17:43 TJS [id number]) EKG Time EKG Completed 17:41 EKG performed by Tonya EDT EKG shown to and signed by Dr. 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 [employer] Location Substernal Severity Moderate Radiation None Context Unknown Improves With Nothing Worsens With Nothing Associated Symptoms Dyspnea Treatment Prior To Arrival None Level Of Consciousness Awake Alert Appropriate Follows Commands Patient Orientation Person Place Time Respiratory Depth Normal Respiratory Effort Normal for Patient Spontaneous Non-Labored Respiratory Pattern Regular Oxygen Delivery Method Room Air Anterior & Posterior Bilateral Throughout Breath Sounds Diminished Cough Description None Hx PR No Hx Angina No Hx Congestive Heart Failure Yes Hx Coronary Artery Bypass Graft No Hx Coronary Stent No Hx Cardiac Arrhythmia Yes Hx AICD No Hx Pacemaker No Hx Deep Vein Thrombosis No Hx Clotting Problems No Hx Peripheral Vascular Disease No Hx Other Cardiac Disorders No Hx Stroke No Hx Diabetes Mellitus Type 1 No Hx Diabetes Mellitus Type 2 Yes Hx Recent Surgeries No Hx Recent Childbirth No Hx Recreational Drug Use No Hx Substance Use No ED Recheck Assessment Start: 06/07/16 17: 34 Freq: Status: Complete Document 06/07/16 17:45 TJS (Rec: 06/07/16 17:49 [id number]) Recheck Assessment Symptoms/Complaint Abnormal Lab Onset 06/07/16 Initial Visit (Ago) 06/07/16 Initial Visit For critical low potassium Returns Today For Called Because of Abnormal Labs Description of Abnormal Result Pt states his assessment consultant called him today for having a critically low potassium level . Symptoms Since First Visit No New Symptoms Context Called for Abnormal Lab Result Associated Symptoms Denies Other Symptoms Level Of Consciousness Awake Alert Appropriate Follows Commands Patient Orientation Person Place Time Skin Temperature Warm Skin Moisture Dry Skin Turgor Normal Respiratory Depth Normal Respiratory Effort Normal for Patient Spontaneous Non-Labored Respiratory Pattern Regular Nausea/Vomiting Presence None Falls precautions (Thomas-Rodriguez) Start: 06/07/16 17: 42 Freq: Status: Complete Document 06/07/16 17:43 TJS (Rec: 06/07/16 17:44 TJS [id number]) Marcial Fall Risk Assessment Age 18-59 years Gender Male Mental Status: Oriented & Cooperative Physical Status: Generalized Muscle Weakness Elimination: Independent & Continent Impairments: None Gait or Balance: Unsteady walking, standing, walker, crutches, furniture History of falls in past 6 months Multiple falls, more than 2 times Mood Stabilizer Medications Not taking prior to admission Benzodiazepines Not taking prior to admission Diuretics Not taking prior to admission Narcotics Not taking prior to admission Sedatives/Hypnotics Not taking prior to admission Atypical Anti-Psychotics Not taking prior to admission Alcohol Withdrawal Protocol Not on Alcohol Withdrawal Protocol Fall Risk Score 7 Fall Risk Level High Risk Fall Prevention Interventions Interventions in Place Bed in lowest position Top side rails up times 2 Secure brake on bed Use properly fitting non-skid footwear Call light and frequently needed objects within reach *Call, Don't Fall* Sign posted in room Fall education information reviewed with patient and/or family Encourage patient to call for assistance if needed Inspect environment for safety during face/face handoff or change of s Supervise and assist with toileting/ADLS as needed Interventions in Place [place] fall-risk tool kit with yellow band Frequent reorientation for confused patients Evaluate need for PT/OT consult Remain with patient during toileting If possible, move patient to room with best visual access Pharmacy consult for review of medications Med Rec Tech Start: 06/07/16 19: 19 Freq: Status: Active Document 06/07/16 19:19 EJD (Rec: 06/07/16 19:19 EJD [id number]) Pharmacy Med Rec Tech Home Medicatons Reconciled? Yes Was this to catch up from previous day No Does patient take 10 or more medications Yes ? Does patient request medication No education Do home meds include Coumadin, Xarelto, No Pradaxa, Eliquis Added Patient Preferred Pharmacy Yes Verified Allergies Yes Would Patient Like to use [place] [facility] No Patient Pharmacy Obtain Old EKG Start: 06/07/16 17: 42 Freq: Status: Complete Document 06/07/16 17:43 TJS (Rec: 06/07/16 17:44 [id number]) Patient Rounding Start: 06/07/16 17: 34 Freq: Q30M Status: Active Document 06/07/16 17:43 TJS (Rec: 06/07/16 17:44 TJS [id number]) Patient Rounding Safety Call Light Within Reach Bed Position Low Fall Precautions Bed Brake On Side Rails Up X2 Are the Floors Free From Trip Hazards? Yes Is the Room Free From Clutter? Yes Rounding Completed? Yes Patient Rounding Updated patient/family on Plan of Care Checked for Patient Positioning Patient Helped to Bathroom or Assisted with Bedpan or Urinal Patient Personal Items Placed Within Reach Checked Patient Pain Level Patient Awake Patient Verbalizes Pain/Symptoms No Improvement Document 06/07/16 18:28 TJS (Rec: 06/07/16 18:28 [id number]) Patient Rounding Safety Call Light Within Reach Bed Position Low Fall Precautions Bed Brake On Side Rails Up X2 Are the Floors Free From Trip Hazards? Yes Is the Room Free From Clutter? Yes Rounding Completed? Yes Patient Rounding Updated patient/family on Plan of Care Checked for Patient Positioning Patient Helped to Bathroom or Assisted with Bedpan or Urinal Patient Personal Items Placed Within Reach Checked Patient Pain Level Patient Awake Patient Verbalizes Pain/Symptoms No Improvement Document 06/07/16 18:52 TJS (Rec: 06/07/16 18:53 [id number]) Patient Rounding Safety Call Light Within Reach Bed Position Low Bed Brake On Side Rails Up X2 Are the Floors Free From Trip Hazards? Yes Is the Room Free From Clutter? Yes Rounding Completed? Yes Patient Rounding Updated patient/family on Plan of Care Checked for Patient Positioning Patient Helped to Bathroom or Assisted with Bedpan or Urinal Patient Personal Items Placed Within Reach Checked Patient Pain Level Patient Awake Patient Verbalizes Pain/Symptoms No Improvement RT Continuous Pulse Oximetry Start: 06/07/16 17: 34 Freq: Status: Complete Document 06/07/16 17:43 TJS (Rec: 06/07/16 17:44 TJS [id number]) Saline lock insertion/management Start: 06/07/16 17: 34 Freq: Status: Complete Document 06/07/16 18:52 TJS (Rec: 06/07/16 18:53 TJS [id number]) IV Insertion/Site Assessment IV Attempt 1 Successful Successful Blood drawn and sent to Lab No 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 Date of Insertion 06/07/16 Time of Insertion 18:50 Reason for IV Insertion Provide Access for IV Medication(s) IV Catheter Type Peripheral IV Gauge (gauge) 20 Site Observation Patent Dressing Applied Transparent Dressing Dry/Intact Patient Tolerance Tolerated Well Supplemental oxygen titration Start: 06/07/16 17: 34 Freq: Status: Complete Document 06/07/16 17:43 TJ (Rec: 06/07/16 17:44 [facility] [id number]) Oxygen Adminstration Oxygen Saturation (95-100) 96 Oxygen Delivery Method Room Air Triage Start: 06/07/16 17: 34 Freq: Status: Complete Document 06/07/16 17:39 [facility] (Rec: 06/07/16 17:42 [facility] [id number]) Triage Chief Complaint triage ED Chest Pain Patient Stated Complaint chest pain/critically low potassium [place] 2 Onset (ago) day(s) Description of Symptoms Pt states he received a phone call from his assessment consultant regarding labwork he had done today. He states he was told that he has a critically low potassium level. Pt states that he has also been having chest pain x 3 days. General Appearance alert in no apparent distress Work Related Injury? No Mode of arrival wheelchair Source patient family Limitations no limitations Ebola Risk: Travel/Contact With Anyone No From Affected Area/s Has Patient Experienced Ebola Symptoms No Temperature (97.6 F-99.6 F) 98.3 F Temperature Source Oral Pulse Rate 93 Respiratory Rate 20 Blood Pressure 103/75 O2 Sat by Pulse Oximetry (95-100) 95 Oxygen Delivery Room Air Height 1.83 m Weight 155.582 kg Weight Measurement Method Stated by Patient Pain Scale 0 Pain Scale Used Standard (1-10) Medical history arthritis atrial fibrillation cancer cardiomyopathy CHF COPD coronary artery disease dementia diabetes GERD hyperlipidemia hypertension osteoporosis renal disease other Additional surgical history PMH bladder surgery Psychiatric history anxiety bipolar depression Smoking Status Current every day smoker Smokeless Tobacco Status hx alcoholism-quit Mar 2015 Alcohol Use none Drug Use none Patient resides with/at Spouse Safety Concerns Feels Safe At This Time Do you currently feel hopless, have No thoughts of self harm, or thoughts of harming others History of fall in last 14 days? Yes Influenza vaccine up to date Yes Pneumonia vaccine up to date Yes Tetanus UTD yes Mother Family Member Living Status Still Living Father Adopted No Family Member Ethnicity Non- Family Member Living Status Still Living Hx Family Cardiac Disorders Yes Vital Signs Assessment Start: 06/07/16 17: 34 Freq: Status: Active Document 06/07/16 17:50 TJS (Rec: 06/07/16 17:50 TJS [id number]) ED Vital Signs Pain Reported No Pain Reported Blood Pressure 108/88 Blood Pressure Location Right Arm Source Automatic Cuff Position HOB Elevated Pulse Rate 112 Respiratory Rate 20 Depth Normal Effort Normal for Patient Spontaneous Non-Labored Pattern Regular Pulse Oximetry (95-100) 95 Oxygen Delivery Room Air Document 06/07/16 18:28 TJS (Rec: 06/07/16 18:28 TJS [id number]) ED Vital Signs Pain Reported No Pain Reported Blood Pressure 125/95 Blood Pressure Location Right Arm Source Automatic Cuff Position HOB Elevated Pulse Rate 113 Respiratory Rate 20 Depth Normal Effort Normal for Patient Spontaneous Non-Labored Pattern Regular Pulse Oximetry (95-100) 95 Oxygen Delivery Nasal Cannula Oxygen Flow Rate (LPM) 3 Discharge ED Provider: Jovani Choudhury Status: Admitted Observation Patient Time Seen by Provider: 06/07/16 17:37 Condition: Triaged At: 06/07/16 17:39 Emergency Discharge Date/Time: Emergency Discharge Disposition: Clinical Impression Emergency Discharge Comment: Admit Intervention Last Done ED Recheck Assessment 06/07/16 17:45 Query Result Recheck Symptoms/Complaint Abnormal Lab Recheck Onset 06/07/16 Recheck Initial Visit (Ago) 06/07/16 Recheck Initial Visit For critical low potassium Recheck Returns Today For CBOAL Recheck Description of Abnormal Result Pt states his assessment consultant called him today for having a critically low potassium level . 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 Chest Pain Location Substernal Chest Pain Severity Moderate Chest Pain Radiation None Chest Pain Context Unknown Chest Pain Improves With Nothing Chest Pain Worsens With Nothing Chest Pain Associated Symptoms Dyspnea Chest Pain Treatments Prior to Arrival None Level Of Consciousness Awake Alert Appropriate Follows Commands Patient Orientation Person Place Time Respiratory Depth Normal Respiratory Effort Normal for Patient Spontaneous Non-Labored Respiratory Pattern Regular Oxygen Delivery Method Room Air Anterior & Posterior Bilateral Throughout -Breath Sounds Diminished Cough Description None Hx Myocardial Infarction No Hx Angina No Hx Congestive Heart Failure Yes Hx Coronary Artery Bypass Graft No Hx Coronary Stent No Hx Cardiac Arrhythmia Yes Hx Auto Implanted Cardiovert Defib No Hx Pacemaker No Hx Deep Vein Thrombosis No Hx Clotting Problems No Hx Peripheral Vascular Disease No Hx Cardiac Disorders No HX Cerebrovascular Accident No Hx Diabetes Mellitus Type 1 No Hx Diabetes Mellitus Type 2 Yes Hx Surgeries No Hx Recent Childbirth No Hx Recreational Drug Use No Hx Substance Use No Observation Discharge Date/Time: Observation Discharge Disposition: Observation Discharge Comment: Instructions: Stand-Alone Forms: Prescriptions: Visit Report - Forms: - Referrals:
[2016-06-07 21:10] LABS: Phosphorous 4.2 mg/dL (2.3-4.7)
[2016-06-07] MEDS: ALPRAZolam 1 MG TABLET PO PRN (22:18)
[2016-06-07] MEDS: *HR* Heparin 5,000 UNIT/ML VIAL SQ SCH (22:18)
[2016-06-07 22:47] LABS: VBG HCO3 41.5 mEq/L (21-27); VBG PH 7.47 pH Units (7.32-7.42)
[2016-06-07 22:48] LABS: Bilirubin,Urine Negative (Negative); Blood,Urine Negative (Negative); Clarity,Urine Clear (Clear); Color,Urine Yellow (Yellow); Glucose,Urine (UA) Normal (Normal); Ketones,Urine Negative (Negative); Leukocyte Esterase,Urine Negative (Negative); Nitrite,Urine Negative (Negative); Protein,Urine Negative (Neg-Trace); Specific Gravity,Urine 1.015 (1.010-1.025); Urobilinogen,Urine Normal (Normal)
[2016-06-07 22:59] LABS: Amphetamine Screen,Urine Negative ng/mL (Cutoff=1000); Barbiturate Screen,Urine Negative ng/mL (Cutoff=200); Benzodiazepines Screen,Urine Positive ng/mL (Cutoff=200); Cannabinoid Screen,Urine Negative ng/mL (Cutoff = 50); Cocaine Screen,Urine Negative ng/mL (Cutoff= 300); Creatinine,Urine 60 mg/dL; Microalbum/Creatinine Ratio,Ur 8 (0-30); Microalbumin,Urine 5 mg/L; Opiate Screen,Urine Negative ng/mL (Cutoff=300); Phencyclidine Screen,Urine Negative ng/mL (Cutoff=25); Protein/Creatinine Ratio,Urine 0.12 mg/mg (0-0.20)
[2016-06-07 23:02] LABS: Chloride,Urine 91 mEq/L; Potassium,Urine 50.5 mEq/L
[2016-06-08] MEDS ORDERED: D5% in Water 1,000 ML IV PRN (00:54)
[2016-06-08] MEDS ORDERED: Dextrose Gel 15 GM PO PRN ×2 (00:54)
[2016-06-08] MEDS ORDERED: *HR* Dextrose 50 % in Water (Syg) 50 ML SYRINGE IVP PRN (00:54)
[2016-06-08 00:55] LABS: Osmolality,Urine 333 mOsm/kg (300-1090)
[2016-06-08] MEDS ORDERED: Calcium Gluconate 1,000 MG in D5% in Water 100 ML IVPB ONE (00:57)
[2016-06-08] MEDS ORDERED: Insulin LISPRO 300 UNITS/3 ML VIAL SQ SCH (01:00)
[2016-06-08] MEDS ORDERED: Insulin DETEMIR 100 UNIT/ML X5UNITS SQ SCH (01:00)
[2016-06-08 05:27] LABS: INR 1.1; Prothrombin Time 11.4 Seconds (9.4-12.1)
[2016-06-08 05:30] LABS: Activated Partial Thrombo Time 30.5 Seconds (26.0-36.0)
[2016-06-08 05:40] LABS: Basophils % 0.3 %; Eosinophils # 0.3 K/mcL (0.0-0.6); Eosinophils % 2.6 %; Hematocrit 44.6 % (37.5-50.1); Hemoglobin 15.4 g/dL (12.9-16.9); Immature Granulocytes % 0.5 % (0-4); Lymphocytes # 2.3 K/mcL (0.6-4.6); Lymphocytes % 22.9 %; Mean Corpuscular HGB Conc 34.5 g/dL (31.6-35.5); Mean Corpuscular Hemoglobin 29.4 pg (28.0-33.3); Mean Corpuscular Volume 85.1 fL (83.0-100.0); Mean Platelet Volume 11.6 fL (9.4-12.4); Monocytes # 1.2 K/mcL (0.0-1.3); Monocytes % 11.8 %; Neutrophils # 6.3 K/mcL (1.6-8.9); Platelet Count 210 K/mcL (140-400); Red Blood Count 5.24 M/mcL (4.19-5.50); Red Cell Distribution Width 13.8 % (11.5-14.5); Segmented Neutrophils % 61.9 %
[2016-06-08 05:47] LABS: Albumin 3.7 g/dL (3.5-5.0); Bilirubin,Total 0.7 mg/dL (0.2-1.2); Calcium 10.1 mg/dL (8.6-10.8); Chol/HDL Ratio 5.5 (0-4.9); Globulin 3.7 g/dL (2.4-3.5); Potassium 2.8 mEq/L (3.5-4.5); Total Protein 7.4 g/dL (6.0-8.3)
[2016-06-08 05:50] LABS: Hemoglobin A1C 7.8 %
[2016-06-08 06:12] LABS: Thyroid Stimulating Hormone 1.143 mcIU/mL (0.350-4.840)
[2016-06-08] MEDS: *HR* Heparin 5,000 UNIT/ML VIAL SQ SCH (06:17)
[2016-06-08] MEDS: ALPRAZolam 1 MG TABLET PO PRN (08:25)
[2016-06-08] MEDS: Gabapentin 300 MG CAPSULE PO SCH ×2 (08:25→14:42)
[2016-06-08] MEDS: Insulin LISPRO 300 UNITS/3 ML VIAL SQ SCH ×4 (08:26→12:43)
[2016-06-08] MEDS ORDERED: Metoprolol 100 MG TABLET PO SCH (09:00)
[2016-06-08] MEDS ORDERED: Aspirin 325 MG TABLET PO SCH (09:00)
[2016-06-08] MEDS ORDERED: hydrALAZINE 25 MG TABLET PO SCH (09:00)
[2016-06-08] MEDS ORDERED: Fenofibrate 54 MG TABLET PO SCH (09:00)
[2016-06-08] MEDS ORDERED: Beclomethasone 80mcg MDI IH SCH (10:00)
[2016-06-08 10:09] LABS: Calcium 9.6 mg/dL (8.6-10.8); Potassium 3.2 mEq/L (3.5-4.5)
--- NOTE | 2016-06-08 10:42 | Internal Med Progress Note ---
<Bailee Menon - Last Filed: 06/08/16 14:25> Date of Encounter: 06/08/16 Time of Encounter: 10:00 - Assessment and plan (1) Hypokalemia Status: Acute Assessment and plan: Patient with potassium of 2.8 upon admission associated with palpitations, numbness and tingling of bilateral hands Received 110 mEq K+ in ED yesterday evening KCl 40mg po TID IVF 50ml/h NS with 20 mEq K+ (2) Paroxysmal a-fib Status: Acute Assessment and plan: EKG with afib with RVR. Patient currently not on anticoagulation due to Etoh use, non-compliance, dementia, falls. Continue ASA (3) CAD (coronary artery disease) Status: Chronic Assessment and plan: Patient with history of MIx1 and stentx1. Negative stress test 09/26/14. Patient sees Dr. 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 Continue statin, fenofibrate, ASA, lopressor, hydralazine Qualifiers: Coronary Disease-Associated Artery/Lesion type: [place] artery [place] vs. transplanted heart: [place] heart Associated angina: without angina Qualified Code(s): I25.10 - Atherosclerotic heart disease of [place] coronary artery without angina pectoris (4) COPD (chronic obstructive pulmonary disease) Status: Chronic Assessment and plan: Patient requires 3L home O2 at night and oxygen supplementation with any activity. Continue O2 supplementatio Continue Qvar, albuterol prn Qualifiers: COPD type: emphysema Emphysema type: unspecified Qualified Code(s): J43.9 - Emphysema, unspecified (5) Tobacco abuse disorder Status: Acute Assessment and plan: Patient states that he stopped smoking yesterday after smoking 1ppd x 49 years. He does not want a nicotine patch. (6) History of alcohol abuse Status: Acute Assessment and plan: Patient states that he stopped drinking alcohol 9 months ago. Prior to this he drank 2 cases of 24 beers per day x 35 years. Thiamine Folate (7) Dementia Status: Chronic Qualifiers: Dementia type: unspecified type Dementia behavioral disturbance: without behavioral disturbance Qualified Code(s): F03.90 - Unspecified dementia without behavioral disturbance (8) DVT prophylaxis Status: Acute Assessment and plan: Heparin 5,000u q 12 hours - Time Spent With Patient 25 - 35 minutes - Subjective Interval history: Patient states that he is feeling better this morning. Patient states that he presented to the hospital yesterday because his potassium was too low. He believes this is from lasix. He recently went to see cardiology, Dr. Chavira who decreased patient's dose of lasix and decreased dose of KCl from 40 mEq TID to 20 mEq TID. Patient does not know how much lasix he is currently prescribed. He states that his manages all of his medications. Upon review of eCW, Dr. Chavira had changed patient's medicines as per the following: Metaolazone 5mg po BID decreased to 5mg po daily Lasix 80mg po BID decreased to 60mg po BID KCl 40mg po TID decreased to 20mg po BID Aldactone 25mg po daily added Patient states that felt his potassium was decreasing as he has been previously hospitalized for this problem. Patient's K+ was 2.9 at last measurement. He had heart palpitations with numbness and tingling to bilateral hands yesterday. He also admitted weakness and dyspnea. He admitted to having chest pain yesterday that he dismissed as heartburn. This morning, he states that the numbness has resolved. He denies any chest pain, palpitations or racing heart at this time. He denies headache, dizziness , dyspnea, abdominal pain, nausea, vomiting, diarrhea, numbness. He does admit to chronic dyspnea on exertion, chronic back pain, chronic memory problems. Patient states that he has history of GA x1, has had 3-4 caths in the past with 1 stent. Negative stress test 09/26/14. He had stress test and ECHO ordered by Dr. Chavira on 06/04/16. He uses 3L O2 at home at night and uses O2 with any activity. He has intermittent afib, but does not take anti-coagulation due to history of alcohol abuse, noncompliance, dementia, falls. - Constitutional Vitals: Temp Pulse Resp BP Pulse Ox 97.5 F L 95 18 115/79 98 06/08/16 07:00 06/08/16 07:00 06/08/16 10:17 06/08/16 07:00 06/08/16 10:17 General appearance: Present: mild distress, A&O X 3, morbidly obese, answers questions appropriately - Head Head exam: Present: atraumatic, normocephalic - Eye Eye exam: Present: EOMI, conjuntiva pink, sclera anicteric Pupils: Present: PERRL - Neck Neck exam general surgery: Present: supple, trachea midline. Absent: lymphadenopathy - Respiratory Respiratory exam: Present: CTAB, wheezes (inspiratory wheezes at left lung base) . Absent: accessory muscle use, rales, rhonchi - Cardiovascular Cardiovascular exam: Present: distant heart sounds, RRR, +S1, +S2. Absent: diastolic murmur, gallop, rubs, systolic murmur - GI/Abdominal GI/Abdominal exam: Present: normal bowel sounds, soft (obese), no peritoneal signs. Absent: distended, tenderness - Extremities Exam Extremities exam: Present: calf tenderness, warm, radial pulses palpable and symetrical. Absent: cyanotic, pedal edema - Neurological Exam Neurological exam: Present: CN II-XII intact, oriented X3, no focal deficits. Absent: pronater drift, facial droop, speech deficit - Skin Skin exam: Present: dry, intact Internal Medicine: Result - Labs CBC & Chem 7: 06/08/16 04:58 06/08/16 09:52 Labs: Short CBC 06/08/16 Range/Units 04:58 WBC 10.1 (4.3-11.1) K/mcL Hgb 15.4 (12.9-16.9) g/dL Hct 44.6 (37.5-50.1) % Plt Count 210 (140-400) K/mcL Neutrophils # 6.3 (1.6-8.9) K/mcL BMP 06/08/16 06/08/16 04:58 09:52 Sodium 140 134 L Potassium 2.8 L 3.2 L Chloride 91 L 89 L Carbon Dioxide 34 H 30 H BUN 33 H 31 H Creatinine 1.65 H 1.61 H Glucose 223 H 219 H Calcium 10.1 9.6 Cardiac Enzymes 06/07/16 06/07/16 06/08/16 Range/Units 20:48 22:20 09:52 Troponin I 0.02 0.02 0.01 (0-0.03) ng/mL Liver Function 06/08/16 Range/Units 04:58 Total Bilirubin 0.7 (0.2-1.2) mg/dL AST 22 (5-34) Units/L ALT 20 (0-55) Units/L Alkaline Phosphatase 71 (38-126) Units/L Albumin 3.7 (3.5-5.0) g/dL Urine 06/07/16 Range/Units 22:30 Urine Color Yellow (Yellow) Urine Clarity Clear (Clear) Urine pH 7.0 (5.0-8.0) pH Units Ur Specific [place] 1.015 (1.010-1.025) Urine Protein Negative (Neg-Trace) mg/dL Urine Glucose (UA) Normal (Normal) mg/dL - ABG Interpretation ABG results: PT/INR, D-dimer PT 11.4 Seconds (9.4-12.1) 06/08/16 04:58 - VTE Documentation of Mechanical Device: Graduated compression elastic hosiery Consult Discharge Plan - Plan Instructions: Hypokalemia (DC) Additional Instructions: Get potassium lab drawn next Saturday (06/11/16) Follow closely with PCP Referrals: Yulia Casiano, DIRECTOR RADIO [Primary Care Provider] - Prescriptions: Folic Acid 0.4 mg PO DAILY #30 tablet Thiamine (B-1) [Vitamin B-1] 100 mg PO DAILY #30 tablet - Attending Attestation I examined this patient and my medical decision-making was reviewed with the [employer] DIRECTOR/PA/Advanced Practice Nurse/Resident Physician. I agree with the documented findings, disposition and treatment plan as described except to the extent set forth below. <Joel Ham H - Last Filed: 06/11/16 17:31> Date of Encounter: 06/11/16 - Constitutional Vitals: Temp Pulse Resp BP Pulse Ox 97.8 F 68 16 98/75 93 L 06/08/16 12:34 06/08/16 12:34 06/08/16 12:34 06/08/16 12:34 06/08/16 12:34 Internal Medicine: Result - Labs CBC & Chem 7: 06/08/16 04:58 06/08/16 09:52 - ABG Interpretation ABG results: PT/INR, D-dimer PT 11.4 Seconds (9.4-12.1) 06/08/16 04:58 - Attending Attestation please refer to discharge summary
[2016-06-08] MEDS ORDERED: Thiamine (B-1) 100 MG TABLET PO SCH (11:45)
[2016-06-08] MEDS ORDERED: Folic Acid 1 MG TABLET PO SCH (11:45)
[2016-06-08 12:36] VITALS: BP 98/75
--- NOTE | 2016-06-08 14:29 | Discharge Summary ---
<Bailee Menon - Last Filed: 06/08/16 14:26> Date of Encounter: 06/08/16 Time of Encounter: 14:27 - Discharge Diagnosis (1) Hypokalemia Priority: Primary Status: Resolved Comments: Secondary to diuretic therapy Get labs completed next saturday (06/11/16) Follow up with PCP in 7 days (2) Paroxysmal a-fib Priority: Secondary Status: Acute (3) CAD (coronary artery disease) Priority: Secondary Status: Chronic Qualifiers: Coronary Disease-Associated Artery/Lesion type: [place] artery [place] vs. transplanted heart: [place] heart Associated angina: without angina Qualified Code(s): I25.10 - Atherosclerotic heart disease of [place] coronary artery without angina pectoris (4) COPD (chronic obstructive pulmonary disease) Priority: Secondary Status: Chronic Qualifiers: COPD type: emphysema Emphysema type: unspecified Qualified Code(s): J43.9 - Emphysema, unspecified (5) Tobacco abuse disorder Priority: Secondary Status: Acute (6) History of alcohol abuse Priority: Secondary Status: Acute (7) Dementia Priority: Secondary Status: Chronic Qualifiers: Dementia type: unspecified type Dementia behavioral disturbance: without behavioral disturbance Qualified Code(s): F03.90 - Unspecified dementia without behavioral disturbance (8) DVT prophylaxis Priority: Secondary Status: Acute - Discharge Medications Home Medications: Albuterol Sulfate [Ventolin Hfa] 2 puff IH Q4H PRN 02/22/15 [History] Alprazolam [Xanax] 1 mg PO TID PRN 02/22/15 [History] Atorvastatin [Lipitor] 40 mg PO HS 02/22/15 [History] Fenofibrate [Lofibra] 160 mg PO QAM 02/22/15 [History] Hydralazine HCl 25 mg PO BID 02/22/15 [History] Oxycodone HCl/Acetaminophen [Percocet 7.5-325 mg Tablet] 1 each PO TID PRN 02/22 [History] Pantoprazole Sodium [Protonix] 40 mg PO QAM 02/22/15 [History] Beclomethasone Diprop 80mcg [QVAR 80 mcg] 1 puff IH BID 05/17/15 [History] Docusate Sodium [Colace] 100 mg PO BID 05/17/15 [History] Aspirin 325 mg PO DAILY 08/31/15 [History] Diltiazem CD (24hr) [Cardizem CD] 300 mg PO QPM 08/31/15 [History] Polyethylene Glycol 3350 [MiraLAX] 17 gm PO DAILY 08/31/15 [History] Insulin DETEMIR [Levemir] 30 unit SQ HS #100 ml 09/01/15 [Rx] Metoprolol [Lopressor] 200 mg PO BID #120 tablet 09/01/15 [Rx] Insulin ASPART [Novolog Flexpen] 0 - 18 unit SQ TID MDD per sliding scale [History] Potassium Chloride 20 meq PO TID 30 Days 11/25/15 [Rx] Furosemide [Lasix] 60 mg PO BID 06/07/16 [History] Gabapentin [Gabapentin] 600 mg PO TID 06/07/16 [History] GlipiZIDE [Glipizide] 10 mg PO BID 06/07/16 [History] Metolazone [Metolazone] 5 mg PO DAILY 06/07/16 [History] Spironolactone [Aldactone] 25 mg PO DAILY 06/07/16 [History] Allergies/Adverse Reactions: Allergies hydrocodone [From Vicodin] Adverse Reaction (Unknown, Verified 11/25/15 09:13) Itching Morphine Sulfate Adverse Reaction (Unknown, Uncoded 05/17/15 09:10) Vomiting Date of admission: 06/07/16 19:49 Primary care physician: Yulia Casiano CNP Consults: 06/07/16 21:36 Consult to Balance Staff Staker [CONS] Routine Reason for SW Consult: home o2, current home health 06/08/16 00:54 Consult to Tongue And Groove Machine Setter [CONS] Routine Comment: Discharging clinician: Joel Ham Anticipated date of discharge: 06/08/16 - Patient Status Disposition: Home, Self-Care Condition: Fair Functional capacity at discharge: uses cane/walker Overall status at discharge: patient is progressing back to baseline - Discharge Instructions Instructions: Hypokalemia (DC) Follow Up With: Yulia Casiano CNP [Primary Care Provider] - Additional Instructions: Get potassium lab drawn next Saturday (06/11/16) Follow closely with PCP - Diet and Activity Activity: increase activity as tolerated Diet: advance to your usual diet Hospital course: Mr. Moore is a 55 year old male with past medical history significant for chronic hypokalemic metabolic-alkalosis, CKD III, type 2 diabetes mellitus, CAD , previous NH, diastolic CHF, paroxysmal atrial fibrillation, COPD-emphysema, chronic hypoxic hypercapnic respiratory failure, GORGE (nocturnal CPAP dependent)/ OHS, hypertension, dyslipidemia, osteoarthritis/osteoporosis, GERD, bipolar disorder, depression and anxiety, history of chronic alcoholism/abstinent since 03/2015, obesity, nicotine dependency (>80pk-yrs). He presented to the hospital with complaints of bilateral hand numbness, chest pain, and heart palpitations. His hypokalemia has been corrected. Patient will discharge to home with instructions to continue the following medications: Metolazone 5mg po daily Lasix 60mg po BID KCl 40mg po TID Aldactone 25mg po daily added He will have lab drawn next Saturday (06/11/16) for serum electrolytes. He will require close follow-up with his PCP for management of his serum K+ levels. - Time Spent with Patient Total time spent providing and/or coordinating discharge services: Greater than 30 minutes (45 minutes with patient and coordinating discharge) - Constitutional Vitals: Temp Pulse Resp BP Pulse Ox 97.8 F 68 16 98/75 93 L 06/08/16 12:34 06/08/16 12:34 06/08/16 12:34 06/08/16 12:34 06/08/16 12:34 General appearance: Present: mild distress, A&O X 3, morbidly obese, answers questions appropriately - Head Head exam: Present: atraumatic, normocephalic - Eye Eye exam: Present: PERRL, conjuntiva pink, sclera anicteric - Neck Neck exam general surgery: Present: supple, trachea midline - Respiratory Respiratory exam: Present: CTAB, wheezes. Absent: accessory muscle use, rales, rhonchi - Cardiovascular Cardiovascular exam: Present: RRR, +S1, +S2. Absent: diastolic murmur, gallop, rubs, systolic murmur - GI/Abdominal GI/Abdominal exam: Present: normal bowel sounds, soft, no peritoneal signs. Absent: distended - Extremities Exam Extremities exam: Present: warm, radial pulses palpable and symetrical. Absent : calf tenderness, cyanotic, pedal edema - Neurological Exam Neurological exam: Present: CN II-XII intact, oriented X3, no focal deficits. Absent: pronater drift, facial droop, speech deficit - Skin Skin exam: Present: dry, intact - VTE Documentation of Mechanical Device: Graduated compression elastic hosiery - Attending Attestation I examined this patient and my medical decision-making was reviewed with the CODING SUPPORT SPECIALIST/PA/Advanced Practice Nurse/Resident Physician. I agree with the documented findings, disposition and treatment plan as described except to the extent set forth below. <Joel Ham H - Last Filed: 06/08/16 15:23> Date of Encounter: 06/08/16 Date of admission: 06/07/16 19:49 Primary care physician: Yulia Casiano CNP Consults: 06/07/16 21:36 Consult to Balance Staff Staker [CONS] Routine Reason for SW Consult: home o2, current home health 06/08/16 00:54 Consult to Tongue And Groove Machine Setter [CONS] Routine Comment: Hospital course: Mr. Moore is a 55 year old male - Time Spent with Patient Total time spent providing and/or coordinating discharge services: - Constitutional Vitals: Temp Pulse Resp BP Pulse Ox 97.8 F 68 16 98/75 93 L 06/08/16 12:34 06/08/16 12:34 06/08/16 12:34 06/08/16 12:34 06/08/16 12:34 - Attending Attestation potassium will be checked on Saturday. Return to old schecule of KCl 40 meq TID, will discuss with cardiology whether to maintain spironolactone or not. Risk of hyperkalemia explained.
--- NOTE | 2016-06-08 17:21 | Electrocardiograph Report ---
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
[2016-06-08] MEDS ORDERED: Diltiazem CD (24hr) 300 MG CAPSULE PO SCH (18:00)
== END 2016-06-08 15:32 | disposition home health service (06) ==
LOC: 3BNU 17:34 → EMEROO 17:34 → SUATTDRO 19:49 → 3BNU 20:58
PROVIDERS: ADMIT Family Medicine; ATTEND Internal Medicine

== ENCOUNTER 2017-01-03 09:34 | Observation (INO) ==
--- NOTE | 2017-01-03 10:24 | Emergency Department Note ---
Disposition Clinical Impression: Hypokalemia, Acute electrocardiogram changes, Acute kidney injury Chest pain Qualifiers: Chest pain type: unspecified Qualified Code(s): R07.9 - Chest pain, unspecified Disposition: Admitted As Inpatient Condition: Good Referrals: NONE,PCP [Non-Partnered Physician] - General Adult HPI - General Stated complaint: Chest Pain from PCP Time Seen by Provider: 01/03/17 09:40 Mode of arrival: private vehicle Limitations: no limitations Nursing Notes Reviewed: Yes Vital Signs Reviewed: Yes - History of Present Illness HPI Narrative: 56 y/o male who had chest pain last night and some mild dyspnea. In addition he had basic labs drawn by his PCP for routine follow up and found a low potassium. He also admits to some left arm paresthesias which he says happens when his potassium is low. He also admits to feeling that he is gaining weight. Denies a cough or excessive sputum production. He says he otherwise fells well and would not have come in unless his PCP had told him to due to his potassium levels. He has a PMH of HTN, ME (with stent years ago), COPD, CHF, CKD, and chronic hypokalemia. He does take potassium daily 10meq TID and lasix 20mg BID. Pain Scale: 5 Improves with: nothing Worsens with: nothing Associated symptoms: Reports: denies other symptoms Treatments Prior to Arrival: none - Related Data Home Medications Medication Instructions Recorded Confirmed Albuterol Sulfate [Ventolin Hfa] 2 puff IH Q4H PRN 02/22/15 06/07/16 Alprazolam [Xanax] 1 mg PO TID PRN 02/22/15 06/07/16 Atorvastatin [Lipitor] 40 mg PO HS 02/22/15 06/07/16 Fenofibrate [Lofibra] 160 mg PO QAM 02/22/15 06/07/16 Hydralazine HCl 25 mg PO BID 02/22/15 06/07/16 Oxycodone HCl/Acetaminophen 1 each PO TID PRN 02/22/15 06/07/16 [Percocet 7.5-325 mg Tablet] Pantoprazole Sodium [Protonix] 40 mg PO QAM 02/22/15 06/07/16 Beclomethasone Diprop 80mcg [QVAR 1 puff IH BID 05/17/15 06/07/16 80 mcg] Docusate Sodium [Colace] 100 mg PO BID 05/17/15 06/07/16 Aspirin 325 mg PO DAILY 08/31/15 06/07/16 Diltiazem CD (24hr) [Cardizem CD] 300 mg PO QPM 08/31/15 06/07/16 Polyethylene Glycol 3350 [MiraLAX] 17 gm PO DAILY 08/31/15 06/07/16 Insulin ASPART [Novolog Flexpen] 0 - 18 unit SQ TID MDD per sliding 11/24/15 scale Furosemide [Lasix] 60 mg PO BID 06/07/16 06/07/16 Gabapentin [Gabapentin] 600 mg PO TID 06/07/16 06/07/16 Spironolactone [Aldactone] 25 mg PO DAILY 06/07/16 06/07/16 glipiZIDE [Glipizide] 10 mg PO BID 06/07/16 06/07/16 metOLazone [Metolazone] 5 mg PO DAILY 06/07/16 06/07/16 Previous Rx's Medication Instructions Recorded Insulin DETEMIR [Levemir] 30 unit SQ HS #100 ml 09/01/15 Metoprolol [Lopressor] 200 mg PO BID #120 tablet 09/01/15 Potassium Chloride 20 meq PO TID 30 Days 11/25/15 Folic Acid 0.4 mg PO DAILY #30 tablet 06/08/16 Thiamine (B-1) [Vitamin B-1] 100 mg PO DAILY #30 tablet 06/08/16 Allergies Allergy/AdvReac Type Severity Reaction Status Date / Time hydrocodone [From Vicodin] AdvReac Unknown Itching Verified 11/25/15 09:13 Morphine Sulfate AdvReac Unknown Vomiting Uncoded 05/17/15 09:10 All systems ED: reviewed and negative except as stated. Constitutional: Denies: fever ENT ED: Denies: throat pain Cardiovascular: Reports: chest pain Respiratory: Reports: dyspnea. Denies: cough Gastrointestinal: Denies: abdominal pain Genitourinary: Denies: dysuria Musculoskeletal: Denies: back pain Integumentary: Denies: rash Neurological: Denies: headache Endocrine: Reports: fatigue Past Medical History - Past Medical History Medical history: Reports: arthritis, atrial fibrillation, cancer, cardiomyopathy , CHF, COPD, coronary artery disease, dementia, diabetes, GERD, hyperlipidemia, hypertension, osteoporosis, renal disease, other Surgical history: Reports: angioplasty/stent, other Psychiatric history: Reports: anxiety, bipolar, depression, other - Social History Smoking Status: Heavy tobacco smoker Smokeless Tobacco Status: (hx alcoholism-quit Mar 2015) Alcohol use: Reports: none, unknown Drug use: Reports: none, unknown Physical Exam - General Limitations: no limitations General appearance: alert, in no apparent distress - Head Head exam: atraumatic - Eye Eye exam: Present: normal appearance, PERRL - ENT ENT exam: normal exam, normal oropharynx - Neck Neck exam: Present: normal inspection - Chest Chest inspection: Present: normal inspection - Respiratory Respiratory exam: Present: wheezes (mild intermittent expiratory). Absent: respiratory distress - Cardiovascular Cardiovascular exam: Present: regular rate, normal rhythm - Abdominal Exam Abdominal exam: Present: soft, Non-Tender, distention - Extremities Exam Extremities exam: Present: pedal edema (1+ bilateral) - Neurological Exam Neurological exam: Present: alert, oriented X3 - Psychiatric Psychiatric exam: Present: normal affect - Skin Skin exam: Present: warm, dry Course Course Narrative: Due to concern over his potassium level we will repeat it and obtain CP labs. He is not hypoxic and lungs are clear. I do not think he is currently having acute left heart failure. Vitals otherwise stable. potassium is low and he has an acute kidney injury. No signs of LH failure and no significant LE edema. Will give IVF, potassium, and admit. EKG shows new flipped T waves in lateral leads. Troponin is negative. Vital Signs Temperature 98.2 F 01/03/17 09:43 Pulse Rate 68 01/03/17 09:43 Respiratory Rate 01/03/17 09:43 Blood Pressure 153/123 01/03/17 09:43 O2 Sat by Pulse Oximetry 90 01/03/17 09:43 Temperature 98.2 F 01/03/17 09:43 Pulse Rate 68 01/03/17 09:43 Respiratory Rate 01/03/17 09:43 Blood Pressure 153/123 01/03/17 09:43 O2 Sat by Pulse Oximetry 90 01/03/17 09:43 Oxygen Delivery Oxygen Delivery Room Air Medical Decision Making - Medical Records Medical records reviewed: Yes I reviewed the patient's medical records. - Lab Data Lab results reviewed: Yes I reviewed the patient's lab results. - Radiology Data Radiology results reviewed: Yes I reviewed the patient's radiology results. - EKG Data EKG #1 EKG attestation: Yes I reviewed and interpreted this EKG. EKG shows normal: sinus rhythm Rate: normal Rhythm: NSR T wave inversions noted in: v3, v4, v5, v6 When compared to previous EKG there are: changes noted (new inverted lateral T waves) Interpretation: other (New T wave inversions in lateral leads)
[2017-01-03 10:32] LABS: Basophils % 0.3 %; Eosinophils % 1.7 %; Hematocrit 45.4 % (37.5-50.1); Immature Granulocytes % 0.6 % (0-4); Lymphocytes % 21.5 %; Mean Corpuscular Hemoglobin 28.2 pg (28.0-33.3); Mean Corpuscular Volume 85.5 fL (83.0-100.0); Mean Platelet Volume 11.9 fL (9.4-12.4); Monocytes % 9.6 %; Platelet Count 228 K/mcL (140-400); Red Blood Count 5.31 M/mcL (4.19-5.50); Red Cell Distribution Width 13.2 % (11.5-14.5); Segmented Neutrophils % 66.3 %
[2017-01-03 10:33] LABS: Eosinophils # 0.2 K/mcL (0.0-0.6); Lymphocytes # 2.9 K/mcL (0.6-4.6); Monocytes # 1.3 K/mcL (0.0-1.3)
[2017-01-03 10:40] LABS: Prothrombin Time 11.2 Seconds (9.4-12.1)
[2017-01-03 10:43] LABS: Calcium 9.5 mg/dL (8.6-10.8); Potassium 2.7 mEq/L (3.5-4.5)
[2017-01-03] MEDS ORDERED: 0.9 % Sodium Chloride 1,000 ML IVC ONE (11:00)
--- NOTE | 2017-01-03 11:03 | Emergency Department Note ---
START Narrative - START START: I examined this patient and my medical decision-making was reviewed with the Resident Physician. I agree with the documented findings, disposition and treatment plan as described except to the extent set forth below. 56-year-old male presents emergency room for opiates and see him. States he has a history of hypo-kalemia. Is on Lasix. Does oral potassium supplements. Patient states he has seen nephrology for this and they thought it was due to his diuretics. He is symptomatic with the low potassium. He denies any active chest pain. Plan at this time is to admit for IV and oral supplementation of his potassium. His EKG showed some T-wave inversions in the lateral leads. His vitals otherwise stable.
[2017-01-03] MEDS ORDERED: Naloxone 0.4 MG/ML INJ IVP PRN (14:39)
[2017-01-03] MEDS ORDERED: Acetaminophen 325 MG TABLET PO PRN (14:39)
[2017-01-03] MEDS ORDERED: Ondansetron 4 MG/2 ML VIAL IVP PRN (14:39)
[2017-01-03] MEDS ORDERED: 0.9 % Sodium Chloride 1,000 ML IVC SCH (14:45)
[2017-01-03] MEDS ORDERED: *HR* OxyCODONE/APAP 7.5/325 TABLET PO PRN (15:01)
--- NOTE | 2017-01-03 15:01 | Internal Med History&Physical ---
<Nichol Marin - Last Filed: 01/03/17 16:00> Date of Encounter: 01/03/17 Time of Encounter: 15:01 Assessment and Plan (1) Chest pain Current visit: Yes Status: Acute 1 patient has been experiencing intermittent chest pain no aggravating or relieving factors. He does have a past cardiac history CT in the past with stent placement he does have high blood pressure as well as hyperlipidemia and he has a present smoker. Troponin is 0 we will continue to trend troponin 2 continuous cardiac monitoring 3 we will obtain cardiac echo 4 continue with aspirin and statin metoprolol 5 continue to monitor electrolytes 6 nitroglycerin as needed for chest pain 7 continue with oxygen Qualifiers: Chest pain type: unspecified Qualified Code(s): R07.9 - Chest pain, unspecified (2) Hypokalemia Current visit: Yes Status: Acute 1 potassium is 2.7. Patient does have history of chronic hypokalemia. He is on diuretics and is on potassium 60 mg 3 times a day. He does admit to recent "water"weight gain over the last month. He was taking metolazone, so his primary care physician on the the fifth of this month and was down 12 pounds advised to stop metolazone. Recheck of electrolytes did show hypokalemia. We will replace and monitor. I will hold diuretics for now 2 continuous cardiac monitoring (3) Acute kidney injury superimposed on chronic kidney disease Current visit: No Status: Acute 1 creatinine is 1.85 his baseline ranges from 1.18-1.6. I suspect this is from overdiuresis. Patient is on Lasix 60 twice a day as well as hydrochlorothiazide. He also was taking metolazone and as of on the fifth of this month he was down 12 pounds. We will give some gentle fluids overnight and monitor his creatinine 2 monitor intake output daily weights 3 avoid nephrotoxins (4) Congestive heart failure Current visit: No Status: Acute 1 patient states that he has been experiencing water gain over the past month- he is on Lasix 60 mg twice a day as well as he says he has had been taking metolazone-followed up with his PCP on the fifth of this month and he was down 12 pounds. He does not. The fluid overloaded his lung do not sound wet BNP is 56 and chest x-ray is clear. He is hypokalemic as well as SCOT we will hold his diuretic for now and give gentle fluids overnight. 2 monitor intake output daily weights 3 low sodium diet Qualifiers: Congestive heart failure type: diastolic Congestive heart failure chronicity: acute Qualified Code(s): I50.31 - Acute diastolic (congestive) heart failure (5) History of alcohol abuse Current visit: No Status: Acute 1 patient states that his father and his brother a few weeks ago afterwards he he states he went on a gonzales and cannot really drunk. Since that time he said he has felt bad and he has not drank since. Prior to this episode he had been sober for 12 years We will monitor for withdrawal (6) Paroxysmal a-fib Current visit: No Status: Acute 1 present is in sinus rhythm we will continue with metoprolol and Cardizem and aspirin (7) COPD (chronic obstructive pulmonary disease) Current visit: No Status: Chronic Qualifiers: COPD type: emphysema Emphysema type: unspecified Qualified Code(s): J43.9 - Emphysema, unspecified (8) GORGE (obstructive sleep apnea) Current visit: No Status: Chronic 1 has history of obstructive sleep apnea however he refuses to wear CPAP (9) DVT prophylaxis Current visit: Yes Status: Acute Lovenox subcutaneous (10) Diabetes mellitus Current visit: No Status: Chronic Accu-Cheks before meals at bedtime with sliding scale insulin as well as basal Diabetic diet Qualifiers: Diabetes mellitus type: type 2 Diabetes mellitus complication status: with kidney complications Diabetes mellitus complication detail: with chronic kidney disease Diabetes mellitus senior living insulin use: with senior living use Chronic kidney disease stage: stage 2 (mild) Qualified Code(s): E11.22 - Type 2 diabetes mellitus with diabetic chronic kidney disease; N18.2 - Chronic kidney disease, stage 2 (mild); Z79.4 - group home (current) use of insulin (11) COPD (chronic obstructive pulmonary disease) Current visit: No Status: Chronic 1 continue with oxygen titrate to maintain SPO2 greater than 92% 2 bronchodilators Qualifiers: COPD type: unspecified COPD Qualified Code(s): J44.9 - Chronic obstructive pulmonary disease, unspecified Internal Medicine - H&P: HPI Chief complaint: Hypokalemia Admitted From: Emergency Dept Plans for Post Hospital Care: Home History of present illness: Mr. Moore is a 56 year old male Past Med Surg Social Fam HX - Past Medical History Medical history: arthritis, atrial fibrillation, cancer, cardiomyopathy, CHF, COPD, coronary artery disease, dementia, diabetes, GERD, hyperlipidemia, hypertension, osteoporosis, renal disease, other Psychiatric history: anxiety, bipolar, depression, other - Past Surgical History Surgical History: angioplasty/stent, other - Social History Smoking Status: Current every day smoker Packs per day: 1/2 Smokeless Tobacco Status: No Alcohol use: occasionally Drug use: none - Family History Father Adopted: No Family Member Ethnicity: Non- Living Status: Still Living Hx Family Cardiac Disorders: Yes Hx Family Cancer: Yes Mother Living Status: Still Living Hx Family Cardiac Disorders: Yes Internal Medicine - H&P: Meds Albuterol Sulfate [Ventolin Hfa] 2 puff IH Q4H PRN 02/22/15 [History] Alprazolam [Xanax] 1 mg PO TID PRN 02/22/15 [History] Atorvastatin [Lipitor] 40 mg PO HS 02/22/15 [History] Fenofibrate [Lofibra] 160 mg PO QAM 02/22/15 [History] Hydralazine HCl 25 mg PO BID 02/22/15 [History] Oxycodone HCl/Acetaminophen [Percocet 7.5-325 mg Tablet] 1 each PO TID PRN 02/22 [History] Pantoprazole Sodium [Protonix] 40 mg PO QAM 02/22/15 [History] Beclomethasone Diprop 80mcg [QVAR 80 mcg] 1 puff IH BID 05/17/15 [History] Docusate Sodium [Colace] 100 mg PO BID 05/17/15 [History] Aspirin 325 mg PO DAILY 08/31/15 [History] Diltiazem CD (24hr) [Cardizem CD] 300 mg PO QPM 08/31/15 [History] Polyethylene Glycol 3350 [MiraLAX] 17 gm PO DAILY 08/31/15 [History] Insulin DETEMIR [Levemir] 30 unit SQ HS #100 ml 09/01/15 [Rx] Metoprolol [Lopressor] 200 mg PO BID #120 tablet 09/01/15 [Rx] Insulin ASPART [Novolog Flexpen] 0 - 18 unit SQ TID MDD per sliding scale [History] Furosemide [Lasix] 60 mg PO BID 06/07/16 [History] Spironolactone [Aldactone] 25 mg PO DAILY 06/07/16 [History] glipiZIDE [Glipizide] 10 mg PO BID 06/07/16 [History] Folic Acid 0.4 mg PO DAILY #30 tablet 06/08/16 [Rx] Thiamine (B-1) [Vitamin B-1] 100 mg PO DAILY #30 tablet 06/08/16 [Rx] Gabapentin [Neurontin] 800 mg PO TID 01/03/17 [History] Potassium Chloride 60 meq PO TID 01/03/17 [History] 3 Allergy/AdvReac Type Severity Reaction Status Date / Time hydrocodone [From Vicodin] AdvReac Unknown Itching Verified 11/25/15 09:13 Morphine Sulfate AdvReac Unknown Vomiting Uncoded 05/17/15 09:10 All Systems PM: A 10-system review of systems was performed and is negative for pertinent findings except as documented above in the HPI. - Constitutional Constitutional: weight gain - EENT Eyes: no change in vision, no discharge, no pain, no photophobia Nose, mouth and throat: no dysphagia, no nasal discharge, no neck pain, no sore throat - Cardiovascular Cardiovascular ROS IM: chest pain, dyspnea, edema - Respiratory Respiratory: dyspnea on exertion, no cough, no dyspnea, no wheezing, no excessive phlegm production - Gastrointestinal Gastrointestinal: no abdominal pain, no diarrhea, no hematemesis, no hematochezia, no melena, no nausea, no vomiting - Musculoskeletal Musculoskeletal ROS IM: no numbness, no tingling - Integumentary Integumentary IM: no rash, no unusual bruising - Neurological Neurological ROS: no confusion, no convulsions, no focal weakness, no numbness, no tingling, no tremor(s) - Hematologic/Lymphatic Hematologic/Lymphatic: no easy bruising - Constitutional Vitals: Temp Pulse Resp BP Pulse Ox 97.7 F 67 15 154/71 90 01/03/17 13:01 01/03/17 13:01 01/03/17 13:01 01/03/17 13:01 01/03/17 13:01 General appearance: Present: A&O X 3, answers questions appropriately - Head Head exam: Present: atraumatic, normocephalic - Eye Eye exam: Present: PERRL, conjuntiva pink, sclera anicteric Pupils: Present: PERRL - Neck Neck exam general surgery: Present: supple, trachea midline. Absent: lymphadenopathy - Respiratory Respiratory exam: Present: wheezes. Absent: accessory muscle use, rales, rhonchi - Cardiovascular Cardiovascular exam: Present: RRR, +S1, +S2. Absent: diastolic murmur, gallop, rubs, systolic murmur - GI/Abdominal GI/Abdominal exam: Present: normal bowel sounds, soft, no peritoneal signs. Absent: distended, tenderness - Extremities Exam Extremities exam: Present: pedal edema, warm, radial pulses palpable and symmetrical. Absent: calf tenderness, cyanotic - Neurological Exam Neurological exam: Present: CN II-XII intact, oriented X3, no focal deficits. Absent: pronater drift, facial droop, speech deficit - Skin Skin exam: Present: dry, intact Internal Med - H&P Results - Labs CBC & Chem 7: 01/03/17 10:24 01/03/17 10:24 - EKG Data EKG shows normal: sinus rhythm - EKG Data EKG comments: 01/03/17 15:[address] changes in lateral leads - Diagnostic Studies Other Images Additional comments: Chest X-Ray 01/03/17 09:49 IMPRESSION: No evidence for acute cardiopulmonary process. D/ / 01/03/2017 10:02:36 Florentino Pugh MD / earnold Interpreting Provider: Florentino Pugh MD <José Luis Colin - Last Filed: 01/03/17 18:06> Date of Encounter: 01/03/17 Internal Medicine - H&P: HPI History of present illness: Mr. Moore is a 56 year old male All Systems PM: A 10-system review of systems was performed and is negative for pertinent findings except as documented above in the HPI. - Constitutional Vitals: Temp Pulse Resp BP Pulse Ox 97.7 F 70 14 132/72 92 01/03/17 13:01 01/03/17 17:22 01/03/17 17:22 01/03/17 17:22 01/03/17 17:22 Internal Med - H&P Results - Labs CBC & Chem 7: 01/03/17 10:24 01/03/17 10:24 Labs: Urine 01/03/17 Range/Units 15:42 Urine Color Yellow (Yellow) Urine Clarity Clear (Clear) Urine pH 6.5 (5.0-8.0) pH Units Ur Specific Rufe 1.019 (1.010-1.025) Urine Protein Negative (Neg-Trace) mg/dL Urine Glucose (UA) >=1000 H (Normal) mg/dL - Attending Attestation Difiicult to assess intravascular volume. SCOT is concerning for overdiuresis. Will hep lock IVF. Trial lasix as this may acutally improve cardiac output and as a result renal perfusion. Labs and CXR do not support CHF but exam supports CHF. PT on BB> Will dc IVF and trial Lasix 80 mg IV BID and closely monitor renal fxn and electrolytes. BP elevated poss related to diastolic CHF. All else as per H&P.
[2017-01-03] MEDS ORDERED: *HR* Dextrose 50 % in Water (Syg) 50 ML SYRINGE IVP PRN (15:06)
[2017-01-03] MEDS ORDERED: D5% in Water 1,000 ML IVC PRN (15:06)
[2017-01-03] MEDS ORDERED: Dextrose Gel 15 GM PO PRN ×2 (15:06)
[2017-01-03] MEDS ORDERED: Albuterol 2.5 MG/3 ML NEBULIZER IH PRN (15:39)
[2017-01-03 15:54] LABS: Bilirubin,Urine Negative (Negative); Blood,Urine Negative (Negative); Clarity,Urine Clear (Clear); Color,Urine Yellow (Yellow); Glucose,Urine (UA) >=1000 mg/dL (Normal); Ketones,Urine Negative (Negative); Leukocyte Esterase,Urine Small (Negative); Nitrite,Urine Negative (Negative); PH,Urine 6.5 pH Units (5.0-8.0); Protein,Urine Negative (Neg-Trace); Specific Gravity,Urine 1.019 (1.010-1.025); Urobilinogen,Urine Normal (Normal)
[2017-01-03 15:57] LABS: Bacteria,Urine None Seen per hpf (None-Few); Hyaline Casts,Urine None Seen per lpf (None-Few); RBC,Urine 0-3 per hpf (0-3); Squamous Epithelial Cell,Urine Few per lpf (None-Few)
[2017-01-03] MEDS: ALPRAZolam 1 MG TABLET PO PRN ×2 (16:00→20:57)
[2017-01-03] MEDS: Diltiazem CD (24hr) 300 MG CAPSULE PO SCH (17:24)
[2017-01-03] MEDS: Insulin LISPRO 300 UNITS/3 ML VIAL SQ SCH ×2 (17:24→20:57)
[2017-01-03] MEDS: Furosemide 40 MG/4 ML VIAL IVP SCH ×2 (18:40→20:59)
[2017-01-03] MEDS: Beclomethasone 80mcg MDI IH SCH (20:45)
[2017-01-03] MEDS: Metoprolol 100 MG TABLET PO SCH (20:56)
[2017-01-03] MEDS: Gabapentin 400 MG CAPSULE PO SCH (20:57)
[2017-01-03] MEDS: hydrALAZINE 25 MG TABLET PO SCH (20:57)
[2017-01-03] MEDS: Insulin DETEMIR 100 UNIT/ML X5UNITS SQ SCH (20:58)
[2017-01-04 01:16] LABS: Calcium 9.7 mg/dL (8.6-10.8); Magnesium 2.2 mg/dL (1.6-2.6)
[2017-01-04 01:19] LABS: Potassium 2.8 mEq/L (3.5-4.5)
[2017-01-04 02:20] LABS: Basophils % 0.3 %; Eosinophils # 0.3 K/mcL (0.0-0.6); Eosinophils % 2.4 %; Hematocrit 45.8 % (37.5-50.1); Hemoglobin 15.2 g/dL (12.9-16.9); Immature Granulocytes % 0.6 % (0-4); Immature Platelets 12.7 % (1.1-6.1); Lymphocytes # 2.1 K/mcL (0.6-4.6); Lymphocytes % 18.5 %; Mean Corpuscular HGB Conc 33.2 g/dL (31.6-35.5); Mean Corpuscular Hemoglobin 28.5 pg (28.0-33.3); Mean Corpuscular Volume 85.8 fL (83.0-100.0); Mean Platelet Volume 11.9 fL (9.4-12.4); Monocytes # 1.3 K/mcL (0.0-1.3); Neutrophils # 7.7 K/mcL (1.6-8.9); Platelet Count 203 K/mcL (140-400); Red Blood Count 5.34 M/mcL (4.19-5.50); Red Cell Distribution Width 13.2 % (11.5-14.5); Segmented Neutrophils % 67.2 %
[2017-01-04] MEDS ORDERED: Perflutren Lipid Microsphere 1.3 ML in 0.9 % Sodium Chloride 8.7 ML IVP ONE (07:38)
[2017-01-04] MEDS ORDERED: Thiamine (B-1) 100 MG TABLET PO SCH (09:00)
[2017-01-04] MEDS ORDERED: Fenofibrate 54 MG TABLET PO SCH (09:00)
[2017-01-04] MEDS ORDERED: Folic Acid 1 MG TABLET PO SCH (09:00)
[2017-01-04] MEDS ORDERED: Aspirin 325 MG TABLET PO SCH (09:00)
[2017-01-04] MEDS: Insulin LISPRO 300 UNITS/3 ML VIAL SQ SCH ×4 (09:56→21:26)
[2017-01-04] MEDS: Metoprolol 100 MG TABLET PO SCH ×2 (09:57→21:21)
[2017-01-04] MEDS: Gabapentin 400 MG CAPSULE PO SCH ×3 (09:57→21:21)
[2017-01-04] MEDS: hydrALAZINE 25 MG TABLET PO SCH ×2 (09:57→21:21)
[2017-01-04] MEDS: Furosemide 40 MG/4 ML VIAL IVP SCH (09:57)
[2017-01-04] MEDS: ALPRAZolam 1 MG TABLET PO PRN ×3 (09:58→21:21)
[2017-01-04] MEDS: Beclomethasone 80mcg MDI IH SCH ×2 (10:36→21:45)
[2017-01-04] MEDS ORDERED: Furosemide 40 MG/4 ML VIAL IVP SCH ×3 (17:00→21:00)
[2017-01-04 17:01] LABS: Calcium 9.5 mg/dL (8.6-10.8); Potassium 3.2 mEq/L (3.5-4.5)
--- NOTE | 2017-01-04 17:43 | Internal Med Progress Note ---
Date of Encounter: 01/04/17 Time of Encounter: 16:10 - Assessment and plan (1) Chest pain Current Visit: Yes Status: Acute Assessment and plan: Patient denies chest pain since yesterday morning. He was admitted for intermittent chest pain with no aggravating or relieving factors. He had an AR 30 years ago with stent placement. Patient has hypertension, hyperlipidemia, diabetes. Echocardiogram was completed today. He states he believes the chest pain is due to stress. Both his brother and father within the last 2 weeks. Troponins are negative 3., BNP is only 58. Chest x-ray shows no evidence of acute cardiopulmonary process. Echo shows LVEF 6065% with mild concentric LV hypertrophy and mild LVDD, mild AR. Patient admitted for very similar symptoms one year ago. He states that he normally has chest pain when his potassium is low. Continue aspirin, mild statin, CCP, fenofibrate, and beta edna. Continue teletypesetter monitor labs in the morning. Pt does not want a stress test. Qualifiers: Chest pain type: unspecified Qualified Code(s): R07.9 - Chest pain, unspecified (2) DVT prophylaxis Current Visit: Yes Status: Acute Assessment and plan: Patient is ambulatory. Observation status. (3) Diabetes mellitus Current Visit: Yes Status: Acute Assessment and plan: A1c is 6.4, 2017. Continue insulin, sliding-scale insulin, diabetic diet and Accu-Cheks before meals at bedtime. 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 Lungs are clear and diminished. Continue home medications. Chest x-ray is negative for any acute cardiopulmonary process. Qualifiers: COPD type: emphysema Emphysema type: unspecified Qualified Code(s): J43.9 - Emphysema, unspecified (5) Hyperlipidemia Current Visit: Yes Status: Chronic Assessment and plan: Chronic. Continue statin and fenofibrate. Qualifiers: Hyperlipidemia type: unspecified Qualified Code(s): E78.5 - Hyperlipidemia , unspecified (6) CAD (coronary artery disease) Current Visit: Yes Status: Chronic Assessment and plan: Patient denies chest pain. Plan as above. Qualifiers: Coronary Disease-Associated Artery/Lesion type: [place] artery [place] vs. transplanted heart: [place] heart Associated angina: without angina Qualified Code(s): I25.10 - Atherosclerotic heart disease of [place] coronary artery without angina pectoris (7) Sleep apnea Current Visit: Yes Status: Chronic Assessment and plan: BiPAP at home. Qualifiers: Sleep apnea type: obstructive Qualified Code(s): G47.33 - Obstructive sleep apnea (adult) (pediatric) (8) Hypokalemia Current Visit: Yes Status: Resolved Assessment and plan: Patient appears to be chronically hypokalemic. He has received supplementation at this time is back at baseline at 3.2. We will continue to monitor labs in the morning. - Time Spent With Patient less than 15 minutes - Subjective Interval history: PT was seen and assessed at 1610. He is alert and awake, oriented x 3. He states that he has not had chest pain since yesterday morning and states that he is pretty sure that it is due to stress at home. He reports that his father and brother both within the last 2 weeks and his is 'feeling kind of sad sometimes" about it. Pain is not reproducible and pt states that he has returned to his baseline. - Constitutional Vitals: Temp Pulse Resp BP Pulse Ox 97.8 F 73 16 111/75 93 01/04/17 15:38 01/04/17 15:38 01/04/17 15:38 01/04/17 15:38 01/04/17 15:38 General appearance: Present: A&O X 3, answers questions appropriately - Head Head exam: Present: atraumatic, normocephalic - Eye Eye exam: Present: PERRL, conjuntiva pink, sclera anicteric Pupils: Present: PERRL - Neck Neck exam general surgery: Present: supple, trachea midline. Absent: lymphadenopathy - Respiratory Respiratory exam: Present: CTAB. Absent: accessory muscle use, rales, rhonchi, wheezes - Cardiovascular Cardiovascular exam: Present: RRR, +S1, +S2. Absent: diastolic murmur, gallop, rubs, systolic murmur - GI/Abdominal GI/Abdominal exam: Present: distended, normal bowel sounds, soft, no peritoneal signs. Absent: hepatomegaly, tenderness - Extremities Exam Extremities exam: Present: normal capillary refill, warm, radial pulses palpable and symmetrical. Absent: calf tenderness, cyanotic, pedal edema, tenderness - Neurological Exam Neurological exam: Present: alert, oriented X3, no focal deficits. Absent: motor sensory deficit, pronater drift, facial droop, speech deficit - Skin Skin exam: Present: dry, intact, normal color, warm. Absent: rash Internal Medicine: Result - Labs CBC & Chem 7: 01/04/17 02:08 01/04/17 16:27 Labs: Short CBC 01/04/17 Range/Units 02:08 WBC 11.4 H (4.3-11.1) K/mcL Hgb 15.2 (12.9-16.9) g/dL Hct 45.8 (37.5-50.1) % Plt Count 203 (140-400) K/mcL Neutrophils # 7.7 (1.6-8.9) K/mcL BMP 01/04/17 01/04/17 00:29 16:27 Sodium 135 L 135 L Potassium 2.8 L 3.2 L Chloride 85 L 85 L Carbon Dioxide 36 H 38 H BUN 38 H D 38 H Creatinine 1.59 H 1.76 H Glucose 315 H 480 H Calcium 9.7 9.5 Cardiac Enzymes 01/04/17 Range/Units 00:29 Troponin I 0.02 (0-0.03) ng/mL - ABG Interpretation ABG results: PT/INR, D-dimer PT 11.2 Seconds (9.4-12.1) 01/03/17 10:24 Consult Discharge Plan - Plan Referrals: Yulia Casiano CNP [Primary Care Provider] -
[2017-01-04] MEDS: Diltiazem CD (24hr) 300 MG CAPSULE PO SCH (18:00)
[2017-01-04] MEDS: Insulin DETEMIR 100 UNIT/ML X5UNITS SQ SCH (21:21)
[2017-01-05 08:16] LABS: Basophils % 0.2 %; Eosinophils # 0.2 K/mcL (0.0-0.6); Eosinophils % 2.1 %; Hematocrit 44.7 % (37.5-50.1); Hemoglobin 15.1 g/dL (12.9-16.9); Immature Granulocytes % 0.6 % (0-4); Lymphocytes # 2.4 K/mcL (0.6-4.6); Lymphocytes % 22.4 %; Mean Corpuscular HGB Conc 33.8 g/dL (31.6-35.5); Mean Corpuscular Hemoglobin 29.1 pg (28.0-33.3); Mean Corpuscular Volume 86.1 fL (83.0-100.0); Mean Platelet Volume 11.4 fL (9.4-12.4); Monocytes % 9.7 %; Platelet Count 204 K/mcL (140-400); Red Blood Count 5.19 M/mcL (4.19-5.50); Red Cell Distribution Width 13.2 % (11.5-14.5)
[2017-01-05 08:17] VITALS: BP 138/91
[2017-01-05 08:58] LABS: BUN/Creatinine Ratio 24 (6-26); Blood Urea Nitrogen 34 mg/dL (8-26); Calcium 9.5 mg/dL (8.6-10.8); Carbon Dioxide 39 mEq/L (19-29); Chloride 84 mEq/L (98-109); Glucose 260 mg/dL (70-99); Osmolality,Calculated 297 (280-300); Potassium 2.6 mEq/L (3.5-4.5); Sodium 135 mEq/L (136-145); eGFR For African Americans > 60 (> 60); eGFR For Non-African Americans 52 (> 60)
[2017-01-05] MEDS: Beclomethasone 80mcg MDI IH SCH (09:47)
--- NOTE | 2017-01-05 18:33 | Discharge Summary ---
Date of Encounter: 01/05/17 Time of Encounter: 00:00 (I did not get to see patient today prior to him leaving AMA.) - Discharge Diagnosis (1) Chest pain Priority: Primary Status: Acute Comments: Yesterday, patient denied chest pain since day of arrival. His troponins were negative 3, BNP was 58. Chest x-ray showed no evidence of acute cardiopulmonary process. Echo shows LVEF of 60-65% with mild concentric LV hypertrophy and mild of ADD, mild R. Patient states he normally has chest pain when his potassium is low. He also states that he is having anxiety due to brother and father dying within the last 2 weeks. Patient declined a stress test because he stated that he needed to go home and take care of his dog. I did not get to assess patient prior to him signing out AMA this morning. Qualifiers: Chest pain type: unspecified Qualified Code(s): R07.9 - Chest pain, unspecified (2) DVT prophylaxis Priority: Secondary Status: Acute Comments: Patient was ambulatory. (3) Diabetes mellitus Priority: Secondary Status: Chronic Comments: Well controlled. A1c was 6.4. He will continue his medications and Accu-Chek regimen at home. Qualifiers: Diabetes mellitus type: type 2 Diabetes mellitus complication status: with unspecified complications Diabetes mellitus residential insulin use: with residential use Qualified Code(s): E11.8 - Type 2 diabetes mellitus with unspecified complications (4) COPD (chronic obstructive pulmonary disease) Priority: Secondary Status: Chronic Comments: No acute exacerbation. Did not assess patient prior to him signing out AMA this morning. Qualifiers: COPD type: emphysema Emphysema type: unspecified Qualified Code(s): J43.9 - Emphysema, unspecified (5) Hyperlipidemia Priority: Secondary Status: Chronic Comments: Continue home medications. Qualifiers: Hyperlipidemia type: unspecified Qualified Code(s): E78.5 - Hyperlipidemia , unspecified (6) CAD (coronary artery disease) Priority: Secondary Status: Chronic Qualifiers: Coronary Disease-Associated Artery/Lesion type: [place] artery [place] vs. transplanted heart: [place] heart Associated angina: without angina Qualified Code(s): I25.10 - Atherosclerotic heart disease of [place] coronary artery without angina pectoris (7) Sleep apnea Priority: Secondary Status: Chronic Comments: Patient reports that he had a BiPAP at home. Qualifiers: Sleep apnea type: obstructive Qualified Code(s): G47.33 - Obstructive sleep apnea (adult) (pediatric) (8) Hypokalemia Priority: Secondary Status: Chronic Comments: According to labs, patient was hypokalemic again this morning. He did not stick around long enough after labs for me to review prior to him signing out AMA. - Discharge Medications Prescriptions: Sulfamethoxazole/Trimeth DS [Bactrim DS] 1 each PO BID #10 tablet Home Medications: Albuterol Sulfate [Ventolin Hfa] 2 puff IH Q4H PRN 02/22/15 [History] Alprazolam [Xanax] 1 mg PO TID PRN 02/22/15 [History] Atorvastatin [Lipitor] 40 mg PO HS 02/22/15 [History] Fenofibrate [Lofibra] 160 mg PO QAM 02/22/15 [History] Hydralazine HCl 25 mg PO BID 02/22/15 [History] Oxycodone HCl/Acetaminophen [Percocet 7.5-325 mg Tablet] 1 each PO TID PRN 02/22 [History] Pantoprazole Sodium [Protonix] 40 mg PO QAM 02/22/15 [History] Beclomethasone Diprop 80mcg [QVAR 80 mcg] 1 puff IH BID 05/17/15 [History] Docusate Sodium [Colace] 100 mg PO BID 05/17/15 [History] Aspirin 325 mg PO DAILY 08/31/15 [History] Diltiazem CD (24hr) [Cardizem CD] 300 mg PO QPM 08/31/15 [History] Polyethylene Glycol 3350 [MiraLAX] 17 gm PO DAILY 08/31/15 [History] Insulin DETEMIR [Levemir] 30 unit SQ HS #100 ml 09/01/15 [Rx] Metoprolol [Lopressor] 200 mg PO BID #120 tablet 09/01/15 [Rx] Insulin ASPART [Novolog Flexpen] 0 - 18 unit SQ TID MDD per sliding scale [History] Furosemide [Lasix] 60 mg PO BID 06/07/16 [History] Spironolactone [Aldactone] 25 mg PO DAILY 06/07/16 [History] glipiZIDE [Glipizide] 10 mg PO BID 06/07/16 [History] Folic Acid 0.4 mg PO DAILY #30 tablet 06/08/16 [Rx] Thiamine (B-1) [Vitamin B-1] 100 mg PO DAILY #30 tablet 06/08/16 [Rx] Gabapentin [Neurontin] 800 mg PO TID 01/03/17 [History] Potassium Chloride 60 meq PO TID 01/03/17 [History] Sulfamethoxazole/Trimeth DS [Bactrim DS] 1 each PO BID #10 tablet 01/05/17 [Rx] Allergies/Adverse Reactions: 3 Allergy/AdvReac Type Severity Reaction Status Date / Time hydrocodone [From Vicodin] AdvReac Unknown Itching Verified 11/25/15 09:13 Morphine Sulfate AdvReac Unknown Vomiting Uncoded 05/17/15 09:10 Procedures/tests Complete & Pending: Procedures Performed prior 72 hours Category Date Time Status EV echocardiogram w enhance Routine Y 01/04/17 15:00 Completed Date of admission: 01/03/17 12:10 Primary care physician: Yulia Casiano CNP Discharging clinician: Magalie Stratton ([email or web address]) Anticipated date of discharge: 01/05/17 - Patient Status Disposition: Left Against Medical Advice Functional capacity at discharge: independent ambulation - Discharge Instructions Follow Up With: Yulia Casiano CNP [Primary Care Provider] - Forms: ED Satisfaction Letter Additional Instructions: Patient signed out AMA before I could see him for evaluating his labs. He states that he needed to go home to see his dog Hospital course: Mr. Moore is a 56 year old male with past medical history of obstructive sleep apnea, chronic hypokalemia, morbid obesity, diabetes, COPD, hyperlipidemia , chronic kidney disease, CAD, CHF, A. fib, alcohol abuse, smoking, debility, chronic diastolic CHF, chronic respiratory failure with hypoxia and hypercapnia , hypoventilation due to obesity. He presented to the emergency room with intermittent chest pain with no aggravating or relieving factors. History of ME with stents, hypertension hyperlipidemia and states that he is smoking 6 days ago. All of his testing was negative. Echocardiogram showed LVEF of 60-65% with mild concentric LV hypertrophy, mild LVEDD, mild AR. His troponins were negative 3, BNP was 58. Chest x-ray was no evidence of acute cardiopulmonary process. We will continue his aspirin, statin, calcium channel edna, fenofibrate, and beta edna. Patient refused a stress test. He states that he may have some anxiety and became a little tearful woman discussed the fact that his brother and father both within the last 2 weeks. She was held due to renal function. He stated that he was leaving the morning with or without my blessing. I did not get to evaluate him this morning, normal look at his labs. He signed out AMA early this morning. He apparently has a urinary tract infection with gram-positive cocci. I have called in a prescription for Bactrim to the pharmacy of his choice. His answered the phone, I did not relay any information to her and requested that the patient call the charge nurse sushil when he has access to a phone to be notified of the urinary tract infection, as well as the prescription at the pharmacy. - Time Spent with Patient Total time spent providing and/or coordinating discharge services: - Constitutional Vitals: Temp Pulse Resp BP Pulse Ox 97.7 F 61 18 138/91 96 01/05/17 08:13 01/05/17 08:13 01/05/17 08:13 01/05/17 08:13 01/05/17 08:13 General appearance: Present: answers questions appropriately
--- NOTE | 2017-01-07 20:51 | Electrocardiograph Report ---
[place] [id number] Test Date: 2017-01-03 Pat Name: Jovani Moore Department: 105 Room: 3B Gender: M Database Designer: SHAHZAD : 1960 Requested By: Víctor Moss Order Number: [id number] Reading MD: Russ Mills MD Measurements Intervals [place] Rate: 65 P: 53 KS: 199 QRS: 51 QRSD: 102 T: 126 QT: 410 QTc: 422 Interpretive Statements SINUS RHYTHM BASELINE ARTIFACT Electronically Signed On 01-07-2017 20:50:22 EDT by Russ Mills MD
== END 2017-01-05 10:40 | disposition left against medical advice (07) ==
LOC: EMEROO 09:34 → 3BNU 09:34
PROVIDERS: ADMIT Registered Nurse; ATTEND Registered Nurse

== ENCOUNTER 2017-06-08 16:16 | Inpatient (IN) ==
[2017-06-08] MEDS: *HR* OxyCODONE/APAP 7.5/325 TABLET PO PRN (19:50)
[2017-06-08] MEDS ORDERED: Acetaminophen 325 MG TABLET PO PRN (20:28)
[2017-06-08] MEDS ORDERED: Naloxone 0.4 MG/ML INJ IVP PRN (20:28)
[2017-06-08] MEDS ORDERED: D5% in Water 1,000 ML IVC PRN (20:38)
[2017-06-08] MEDS ORDERED: Dextrose Gel 15 GM/37.5 ML TUBE PO PRN ×2 (20:38)
[2017-06-08] MEDS ORDERED: *HR* Dextrose 50 % in Water (Syg) 50 ML SYRINGE IVP PRN (20:38)
[2017-06-08] MEDS ORDERED: ALPRAZolam 1 MG TABLET PO PRN (20:39)
[2017-06-08] MEDS ORDERED: Ipratropium/Albuterol Neb 3 ML IH PRN (20:42)
--- NOTE | 2017-06-08 21:50 | Internal Med History&Physical ---
Date of Encounter: 06/08/17 Time of Encounter: 19:00 Assessment and Plan (1) Alcohol abuse Current visit: No Status: Acute Pt denies alcohol abuse and said he only drink occasionally and last drink was "super bowel" which was 05/23/17. However, will place pt on CIWA protocol in case pt has withdraw. (2) Atrial fibrillation Current visit: No Status: Acute Regular HR now. Pt is only on ASA at home, will cont. Qualifiers: Atrial fibrillation type: paroxysmal Qualified Code(s): I48.0 - Paroxysmal atrial fibrillation (3) Congestive heart failure Current visit: No Status: Acute Appears euvolemic at this point Qualifiers: Qualified Code(s): I50.31 - Acute diastolic (congestive) heart failure (4) DVT prophylaxis Current visit: No Status: Acute Heparin SC (5) Fracture of left proximal fibula Current visit: No Status: Acute Due to mechanical fall. Place pt on pain meds, ortho consult. Qualifiers: Encounter type: initial encounter Fracture type: closed Fracture morphology: other fracture Qualified Code(s): S82.832A - Other fracture of upper and lower end of left fibula, initial encounter for closed fracture (6) Fracture of left tibia Current visit: No Status: Acute As above Qualifiers: Encounter type: initial encounter Tibia location: distal Fracture type: closed Fracture morphology: unspecified fracture morphology Qualified Code(s ): S82.302A - Unspecified fracture of lower end of left tibia, initial encounter for closed fracture (7) Hypokalemia Current visit: No Status: Acute Will give potassium supplement. (8) Tobacco abuse disorder Current visit: No Status: Acute Smoking cessation education, pt refuse nicotine patch. (9) COPD (chronic obstructive pulmonary disease) Current visit: No Status: Chronic Has trace wheezes. Place pt on duoneb q6h cathy and q4h PRN Qualifiers: COPD type: emphysema Emphysema type: unspecified Qualified Code(s): J43.9 - Emphysema, unspecified (10) CAD (coronary artery disease) Current visit: No Status: Chronic s/p Stent. No chest pain now. Will order EKG. - Will consult cardio for surgery risk evaluation - Cont cardiac monitoring. Qualifiers: Coronary Disease-Associated Artery/Lesion type: kaibab artery [place] vs. transplanted heart: kaibab heart Associated angina: without angina Qualified Code(s): I25.10 - Atherosclerotic heart disease of kaibab coronary artery without angina pectoris (11) GORGE (obstructive sleep apnea) Current visit: No Status: Chronic Pt said he is supposed on CPAP but not on, he refuses to have CPAP in hospital. - Will place him on continuous cardiac and oximetry monitor - NC O2 - Closely monitor pt as he needs pain meds. (12) Diabetes mellitus Current visit: No Status: Chronic Cont basal and SS insulin coverage, monitor Glu. Qualifiers: Diabetes mellitus type: type 2 Diabetes mellitus complication status: with unspecified complications Diabetes mellitus care home insulin use: with care home use Qualified Code(s): E11.8 - Type 2 diabetes mellitus with unspecified complications Internal Medicine - H&P: HPI Chief complaint: Fall and left leg pain Admitted From: Home Plans for Post Hospital Care: Home History of present illness: Mr. Moore is a 56 year old male with Hx of A Fib, CHF, COPD, DM, GORGE, CAD s/p stent, present to [facility] for fall and left leg pain. Pt said the road is slippery and he fell and twisted his left ankle. Denies LOS. Denies head/neck injury. Denies pain in other part of body except left lower extremity. Pt denies SOB, CP, nausea, or ABD pain. Orthopedics was consulted by ER and plan for surgery in AM. Pt was transferred to our hospital for further management. Past Med Surg Social Fam HX - Past Medical History Medical history: arthritis, atrial fibrillation, cancer, cardiomyopathy, CHF, COPD, coronary artery disease, dementia, diabetes, GERD, hyperlipidemia, hypertension, osteoporosis, renal disease, other Psychiatric history: anxiety, depression, other - Past Surgical History Surgical History: angioplasty/stent, other - Social History Smoking Status: Current every day smoker Packs per day: 2 Smokeless Tobacco Status: No Alcohol use: occasionally Drug use: none - Family History Father Adopted: No Family Member Ethnicity: Non- Living Status: Hx Family Cardiac Disorders: Yes Hx Family Respiratory Disorders: Yes Hx Family Cancer: Yes Mother Living Status: Hx Family Cardiac Disorders: Yes Hx Family Respiratory Disorders: Yes Internal Medicine - H&P: Meds Albuterol Sulfate [Ventolin Hfa] 2 puff IH Q4H PRN 02/22/15 [History] Alprazolam [Xanax] 1 mg PO TID PRN 02/22/15 [History] Atorvastatin [Lipitor] 40 mg PO HS 02/22/15 [History] Fenofibrate [Lofibra] 160 mg PO QAM 02/22/15 [History] Hydralazine HCl 25 mg PO BID 02/22/15 [History] Oxycodone HCl/Acetaminophen [Percocet 7.5-325 mg Tablet] 1 each PO TID PRN 02/22 [History] Pantoprazole Sodium [Protonix] 40 mg PO QAM 02/22/15 [History] Beclomethasone Diprop 80mcg [QVAR 80 mcg] 1 puff IH BID 05/17/15 [History] Docusate Sodium [Colace] 100 mg PO BID 05/17/15 [History] Aspirin 325 mg PO DAILY 08/31/15 [History] Diltiazem CD (24hr) [Cardizem CD] 300 mg PO QPM 08/31/15 [History] Polyethylene Glycol 3350 [MiraLAX] 17 gm PO DAILY 08/31/15 [History] Insulin DETEMIR [Levemir] 30 unit SQ HS #100 ml 09/01/15 [Rx] Metoprolol [Lopressor] 200 mg PO BID #120 tablet 09/01/15 [Rx] Insulin ASPART [Novolog Flexpen] 0 - 18 unit SQ TID MDD per sliding scale [History] Furosemide [Lasix] 60 mg PO BID 06/07/16 [History] Spironolactone [Aldactone] 25 mg PO DAILY 06/07/16 [History] glipiZIDE [Glipizide] 10 mg PO BID 06/07/16 [History] Folic Acid 0.4 mg PO DAILY #30 tablet 06/08/16 [Rx] Thiamine (B-1) [Vitamin B-1] 100 mg PO DAILY #30 tablet 06/08/16 [Rx] Gabapentin [Neurontin] 800 mg PO TID 01/03/17 [History] Potassium Chloride 60 meq PO TID 01/03/17 [History] Sulfamethoxazole/Trimeth DS [Bactrim DS] 1 each PO BID #10 tablet 01/05/17 [Rx] 3 Allergy/AdvReac Type Severity Reaction Status Date / Time hydrocodone [From Vicodin] AdvReac Unknown Itching Verified 11/25/15 09:13 Morphine Sulfate AdvReac Unknown Vomiting Uncoded 05/17/15 09:10 All Systems PM: A 10-system review of systems was performed and is negative for pertinent findings except as documented above in the HPI. - Constitutional Vitals: Temp Pulse Resp BP Pulse Ox 97.6 F 87 16 134/83 95 06/08/17 18:05 06/08/17 18:05 06/08/17 18:05 06/08/17 18:05 06/08/17 18:05 General appearance: Present: A&O X 3, no acute distress, answers questions appropriately - Head Head exam: Present: atraumatic, normocephalic - Eye Eye exam: Present: PERRL, conjuntiva pink, sclera anicteric Pupils: Present: PERRL - Neck Neck exam general surgery: Present: supple, trachea midline. Absent: lymphadenopathy - Respiratory Respiratory exam: Present: CTAB, wheezes (trace wheezes on right lung base). Absent: accessory muscle use, rales, rhonchi - Cardiovascular Cardiovascular exam: Present: RRR, +S1, +S2. Absent: diastolic murmur, gallop, rubs, systolic murmur - GI/Abdominal GI/Abdominal exam: Present: normal bowel sounds, soft, no peritoneal signs. Absent: distended, tenderness - Extremities Exam Extremities exam: Present: warm, radial pulses palpable and symmetrical. Absent : calf tenderness, cyanotic, pedal edema - Neurological Exam Neurological exam: Present: CN II-XII intact, oriented X3, no focal deficits. Absent: pronater drift, facial droop, speech deficit - Skin Skin exam: Present: dry, intact
[2017-06-08] MEDS ORDERED: *HR* LORazepam 2 MG/ML VIAL IVP PRN ×3 (22:10)
[2017-06-08] MEDS: Ipratropium/Albuterol Neb 3 ML IH SCH (22:15)
[2017-06-08] MEDS: 0.9 % Sodium Chloride 1,000 ML IVC SCH (22:24)
[2017-06-08] MEDS: Metoprolol 100 MG TABLET PO SCH (22:24)
[2017-06-08] MEDS: Insulin DETEMIR 100 UNIT/ML X5UNITS SQ SCH (22:25)
[2017-06-08] MEDS: Furosemide 40 MG TABLET PO SCH (22:25)
[2017-06-09 01:36] LABS: Basophils % 0.2 %; Eosinophils # 0.2 K/mcL (0.0-0.6); Eosinophils % 2.1 %; Hematocrit 41.7 % (37.5-50.1); Hemoglobin 13.9 g/dL (12.9-16.9); Immature Granulocytes % 0.8 % (0-4); Lymphocytes % 17.7 %; Mean Corpuscular HGB Conc 33.3 g/dL (31.6-35.5); Mean Corpuscular Hemoglobin 29.6 pg (28.0-33.3); Mean Corpuscular Volume 88.7 fL (83.0-100.0); Mean Platelet Volume 10.4 fL (9.4-12.4); Monocytes % 9.3 %; Neutrophils # 7.8 K/mcL (1.6-8.9); Platelet Count 225 K/mcL (140-400); Segmented Neutrophils % 69.9 %
[2017-06-09 01:42] LABS: INR 1.1; Prothrombin Time 11.3 Seconds (9.4-12.1)
[2017-06-09 02:16] LABS: BUN/Creatinine Ratio 18 (6-26); Blood Urea Nitrogen 24 mg/dL (6-20); Calcium 9.2 mg/dL (8.6-10.3); Carbon Dioxide 37 mEq/L (23-29); Chloride 90 mEq/L (98-107); Glucose 215 mg/dL (70-105); Osmolality,Calculated 293 (280-300); Potassium 3.1 mEq/L (3.5-5.1); Sodium 136 mEq/L (136-145); eGFR For African Americans > 60 (> 60); eGFR For Non-African Americans 56 (> 60)
[2017-06-09] MEDS: *HR* OxyCODONE/APAP 7.5/325 TABLET PO PRN ×2 (03:17→23:00)
[2017-06-09] MEDS: Ipratropium/Albuterol Neb 3 ML IH SCH ×4 (04:35→22:08)
[2017-06-09] MEDS: *HR* Heparin 5,000 UNIT/ML VIAL SQ SCH ×2 (04:56→16:43)
--- NOTE | 2017-06-09 06:25 | Orthopedic Consult Note ---
Date of Encounter: 06/09/17 Time of Encounter: 06:23 History of Present Illness HPI: Mr. Moore is a 56 year old male S/P Fall with injury to left lower extremity C/O leg pain no head or other injuries PE A+O x 3 Left Lower extremity in splin NVI xrays displaced distal third tibia fx awaiting medical clearance for left tibia Open reduction intramedullary nail fixation risks and benefits reviewed Past Med Surg Social Fam HX - Past Medical History Medical history: arthritis, atrial fibrillation, cancer, cardiomyopathy, CHF, COPD, coronary artery disease, dementia, diabetes, GERD, hyperlipidemia, hypertension, osteoporosis, renal disease, other Psychiatric history: anxiety, depression, other - Past Surgical History Surgical History: angioplasty/stent, other - Social History Smoking Status: Current every day smoker Packs per day: 2 Smokeless Tobacco Status: No Alcohol use: occasionally Drug use: none - Family History Father Adopted: No Family Member Ethnicity: Non- Living Status: Hx Family Cardiac Disorders: Yes Hx Family Respiratory Disorders: Yes Hx Family Cancer: Yes Mother Living Status: Hx Family Cardiac Disorders: Yes Hx Family Respiratory Disorders: Yes Medications and Allergies Albuterol Sulfate [Ventolin Hfa] 2 puff IH Q4H PRN 02/22/15 [History] Alprazolam [Xanax] 1 mg PO TID PRN 02/22/15 [History] Atorvastatin [Lipitor] 40 mg PO HS 02/22/15 [History] Fenofibrate [Lofibra] 160 mg PO QAM 02/22/15 [History] Hydralazine HCl 25 mg PO BID 02/22/15 [History] Oxycodone HCl/Acetaminophen [Percocet 7.5-325 mg Tablet] 1 each PO TID PRN 02/22 [History] Pantoprazole Sodium [Protonix] 40 mg PO QAM 02/22/15 [History] Beclomethasone Diprop 80mcg [QVAR 80 mcg] 1 puff IH BID 05/17/15 [History] Docusate Sodium [Colace] 100 mg PO BID 05/17/15 [History] Aspirin 325 mg PO DAILY 08/31/15 [History] Diltiazem CD (24hr) [Cardizem CD] 300 mg PO QPM 08/31/15 [History] Polyethylene Glycol 3350 [MiraLAX] 17 gm PO DAILY 08/31/15 [History] Insulin DETEMIR [Levemir] 30 unit SQ HS #100 ml 09/01/15 [Rx] Metoprolol [Lopressor] 200 mg PO BID #120 tablet 09/01/15 [Rx] Insulin ASPART [Novolog Flexpen] 0 - 18 unit SQ TID MDD per sliding scale [History] Furosemide [Lasix] 60 mg PO BID 06/07/16 [History] Spironolactone [Aldactone] 25 mg PO DAILY 06/07/16 [History] glipiZIDE [Glipizide] 10 mg PO BID 06/07/16 [History] Folic Acid 0.4 mg PO DAILY #30 tablet 06/08/16 [Rx] Thiamine (B-1) [Vitamin B-1] 100 mg PO DAILY #30 tablet 06/08/16 [Rx] Gabapentin [Neurontin] 800 mg PO TID 01/03/17 [History] Potassium Chloride 60 meq PO TID 01/03/17 [History] Sulfamethoxazole/Trimeth DS [Bactrim DS] 1 each PO BID #10 tablet 01/05/17 [Rx] 3 Allergy/AdvReac Type Severity Reaction Status Date / Time hydrocodone [From Vicodin] AdvReac Unknown Itching Verified 11/25/15 09:13 Morphine Sulfate AdvReac Unknown Vomiting Uncoded 05/17/15 09:10 All Systems Reviewed: A 10-system review of systems was performed and is negative for pertinent findings except as documented above in the HPI. Physical Exam - Constitutional Vitals: Temp Pulse Resp BP Pulse Ox 98.2 F 62 16 114/74 98 06/09/17 05:27 06/09/17 05:27 06/09/17 05:27 06/09/17 05:27 06/09/17 05:27 Results - Labs Result Diagrams: 06/09/17 01:22 06/09/17 01:22 Labs: Abnormal lab results WBC 11.2 K/mcL (4.3-11.1) H 06/09/17 01:22 RDW 15.0 % (11.5-14.5) H 06/09/17 01:22 Potassium 3.1 mEq/L (3.5-5.1) L 06/09/17 01:22 Chloride 90 mEq/L (98-107) L 06/09/17 01:22 Carbon Dioxide 37 mEq/L (23-29) H 06/09/17 01:22 BUN 24 mg/dL (6-20) H 06/09/17 01:22 Creatinine 1.32 mg/dL (0.70-1.30) H 06/09/17 01:22 Est GFR (Non-Af Amer) 56 (> 60) L 06/09/17 01:22 Glucose 215 mg/dL (70-105) H 06/09/17 01:22 POC Glucose 164 (58-89) H 06/09/17 06:06 H & H 06/09/17 Range/Units 01:22 Hgb 13.9 (12.9-16.9) g/dL Hct 41.7 (37.5-50.1) % All other labs normal. Consult Discharge Plan - Plan Referrals: Yulia Casiano, [facility] [Primary Care Provider] -
--- NOTE | 2017-06-09 07:34 | Internal Med Progress Note ---
Date of Encounter: 06/09/17 Time of Encounter: 07:32 - Assessment and plan (1) Tibial fracture Current Visit: Yes Status: Acute Assessment and plan: orthopediac surgery was consulted, plan for ORIF preop medical assessment: 1. cardiology consult for cardiac clearance due to CAD atrial fib, CHF, I called Dr Kirk 2. COPD and chronic hypoxic resp failure, at risk for periop respiratoyr failure , no signs for COPD exacerbation Qualifiers: Encounter type: initial encounter Tibia location: proximal physis (incl. [place]in) Fracture alignment: displaced Laterality: left Qualified Code(s): S89.002A - Unspecified physeal fracture of upper end of left tibia, initial encounter for closed fracture (2) Chronic coronary artery disease Current Visit: Yes Status: Chronic Assessment and plan: had stent 15 years ago, on ASA (3) Diabetes mellitus Current Visit: No Status: Chronic Assessment and plan: continue home meds Qualifiers: Diabetes mellitus type: type 2 Diabetes mellitus complication status: with unspecified complications Diabetes mellitus long term care administrator insulin use: with long-term use Qualified Code(s): E11.8 - Type 2 diabetes mellitus with unspecified complications (4) COPD (chronic obstructive pulmonary disease) Current Visit: No Status: Chronic Assessment and plan: COPD and active smoking, declined nicotine patch he was on 3 L NC at home, no signs for acute exacerbation, continue nebs Qualifiers: COPD type: emphysema Emphysema type: unspecified Qualified Code(s): J43.9 - Emphysema, unspecified (5) Hyperlipidemia Current Visit: Yes Status: Chronic Assessment and plan: continue home meds Qualifiers: Hyperlipidemia type: unspecified Qualified Code(s): E78.5 - Hyperlipidemia , unspecified (6) Sleep apnea Current Visit: No Status: Chronic Assessment and plan: periop BIPAP Qualifiers: Sleep apnea type: obstructive Qualified Code(s): G47.33 - Obstructive sleep apnea (adult) (pediatric) (7) Alcohol abuse Current Visit: Yes Status: Chronic Assessment and plan: no signs for withdrawal (8) Atrial fibrillation Current Visit: No Status: Chronic Assessment and plan: on ASA, rate controlled, consult cardiology Qualifiers: Atrial fibrillation type: paroxysmal Qualified Code(s): I48.0 - Paroxysmal atrial fibrillation (9) Hypokalemia Current Visit: No Status: Acute Assessment and plan: repalced and will close monitor (10) Type 2 diabetes mellitus Current Visit: Yes Status: Chronic Qualifiers: Diabetes mellitus complication status: with neurologic complications Diabetes mellitus complication detail: with amyotrophy Diabetes mellitus long term care administrator insulin use: with long-term use Qualified Code(s): 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; 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; 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; Z79.4 - terminal press operator (current ) use of insulin; Z79.4 - senior living (current) use of insulin (11) Morbid obesity with BMI of 45.0-49.9, adult Current Visit: No Status: Chronic (12) Bipolar disorder Current Visit: No Status: Chronic Qualifiers: Active/Remission status: remission status unspecified Qualified Code(s): F31.9 - Bipolar disorder, unspecified (13) DVT prophylaxis Current Visit: No Status: Acute Assessment and plan: heparin SC (14) Chronic diastolic (congestive) heart failure Current Visit: Yes Status: Acute - Time Spent With Patient Greater than 35 minutes - Subjective Interval history: patient was admitted for left tibial fracture, pain is well controlled, he reported he had stent to heart 15 years ago, still smoking on home O2 3 L NC. has hx of CAD, CHF and atrial fib. his COPD is at the baseline, no active wheezing and SOB. He reported has recent heels infection on bactrium - Constitutional Vitals: Temp Pulse Resp BP Pulse Ox 98.4 F 76 17 126/81 94 06/09/17 07:27 06/09/17 07:27 06/09/17 07:27 06/09/17 07:27 06/09/17 07:27 General appearance: Present: A&O X 3, no acute distress, answers questions appropriately - Head Head exam: Present: atraumatic, normocephalic - Eye Eye exam: Present: PERRL, conjuntiva pink, sclera anicteric Pupils: Present: PERRL - Neck Neck exam general surgery: Present: supple, trachea midline. Absent: lymphadenopathy - Respiratory Respiratory exam: Present: decreased breath sounds, CTAB. Absent: accessory muscle use, rales, rhonchi, wheezes - Cardiovascular Cardiovascular exam: Present: RRR, +S1, +S2. Absent: diastolic murmur, gallop, rubs, systolic murmur - GI/Abdominal GI/Abdominal exam: Present: normal bowel sounds, soft, no peritoneal signs. Absent: distended, tenderness - Extremities Exam Extremities exam: Present: warm, radial pulses palpable and symmetrical. Absent : calf tenderness, cyanotic, pedal edema - Neurological Exam Neurological exam: Present: CN II-XII intact, oriented X3, no focal deficits. Absent: pronater drift, facial droop, speech deficit - Skin Skin exam: Present: dry, intact Internal Medicine: Result - Labs CBC & Chem 7: 06/09/17 01:22 06/09/17 01:22 Labs: Short CBC 06/09/17 Range/Units 01:22 WBC 11.2 H (4.3-11.1) K/mcL Hgb 13.9 (12.9-16.9) g/dL Hct 41.7 (37.5-50.1) % Plt Count 225 (140-400) K/mcL Neutrophils # 7.8 (1.6-8.9) K/mcL BMP 06/09/17 01:22 Sodium 136 Potassium 3.1 L Chloride 90 L Carbon Dioxide 37 H BUN 24 H Creatinine 1.32 H Glucose 215 H Calcium 9.2 - ABG Interpretation ABG results: PT/INR, D-dimer PT 11.3 Seconds (9.4-12.1) 06/09/17 01:22 Consult Discharge Plan - Plan Referrals: Yulia Casiano, [facility] SPECIALIST [Primary Care Provider] -
[2017-06-09] MEDS: Furosemide 40 MG TABLET PO SCH ×2 (07:51→16:39)
[2017-06-09] MEDS: Spironolactone 25 MG TABLET PO SCH (07:51)
[2017-06-09] MEDS: Insulin LISPRO 300 UNITS/3 ML VIAL SQ SCH ×3 (07:52→16:40)
[2017-06-09] MEDS: Aspirin 325 MG TABLET PO SCH (07:52)
[2017-06-09] MEDS: Metoprolol 100 MG TABLET PO SCH ×2 (07:52→21:33)
[2017-06-09] MEDS: 0.9 % Sodium Chloride 1,000 ML IVC SCH (08:26)
--- NOTE | 2017-06-09 11:42 | Cardiology Consult Note ---
Date of Encounter: 06/09/17 Time of Encounter: 11:37 Assessment and Plan (1) Preop cardiovascular exam Current Visit: Yes Status: Acute Given patient's poor general health, morbid obesity and COPD (with active wheezing), he represents a moderate risk candidate for this orthopedic surgery. Prior to injury, able to walk and achieve > 4 METs without chest discomfort. In fact, he was cleaning out a house when he fell and broke his ankle. No indication for preoperative cardiac testing prior to procedure. Consider pulmonary treatement to maximize pulmonary status prior to OR. No further cardiac recommendations. Please call with questions or concerns. We will sign off. Thanks, Bayron Kirk DO, FAC Discussion w patient/family: The assessment and plan as outlined above was discussed with the patient and/or family members who expressed understanding and agreement. All questions were answered. Thank you for involving us in the care of your patient. Please call with any questions. History of Present Illness Consult date: 06/09/17 Requesting physician: Zarina Gagnon Consult reason: Preop Chief complaint: Preop History of present illness: Mr. Moore is a 56 year old male with a history of AF, CHF , COPD, DM II, GORGE. Re: AF - Coumadin previously stopped due to "easy bleeding" and alcohol abuse. Reported prior CAD s/p PCI - remote at [facility]. Transferred for fall, ankle injury scheduled for OR. Preoperative evaluation requested. Hemodynamics stable since admission. Previous testing: TTE 01/04/2017: LVEF 60-65%. Normal LV, RV size and function. Mild LVH. Mild AR. RVSP not well obtained. ECG 06/08/2017: Sinus rhythm, no ST-T changes. Past Med Surg Social Fam HX - Past Medical History Medical history: arthritis, atrial fibrillation, cancer, cardiomyopathy, CHF, COPD, coronary artery disease, dementia, diabetes, GERD, hyperlipidemia, hypertension, osteoporosis, renal disease, other Psychiatric history: anxiety, depression, other - Past Surgical History Surgical History: angioplasty/stent, other - Social History Smoking Status: Current every day smoker Packs per day: 2 Smokeless Tobacco Status: No Alcohol use: occasionally Drug use: none - Family History Father Adopted: No Family Member Ethnicity: Non- Living Status: Hx Family Cardiac Disorders: Yes Hx Family Respiratory Disorders: Yes Hx Family Cancer: Yes Mother Living Status: Hx Family Cardiac Disorders: Yes Hx Family Respiratory Disorders: Yes Medications and Allergies Albuterol Sulfate [Ventolin Hfa] 2 puff IH Q4H PRN 02/22/15 [History] Alprazolam [Xanax] 1 mg PO TID PRN 02/22/15 [History] Atorvastatin [Lipitor] 40 mg PO HS 02/22/15 [History] Fenofibrate [Lofibra] 160 mg PO QAM 02/22/15 [History] Hydralazine HCl 25 mg PO BID 02/22/15 [History] Oxycodone HCl/Acetaminophen [Percocet 7.5-325 mg Tablet] 1 each PO TID PRN 02/22 [History] Pantoprazole Sodium [Protonix] 40 mg PO QAM 02/22/15 [History] Beclomethasone Diprop 80mcg [QVAR 80 mcg] 1 puff IH BID 05/17/15 [History] Docusate Sodium [Colace] 100 mg PO BID 05/17/15 [History] Aspirin 325 mg PO DAILY 08/31/15 [History] Diltiazem CD (24hr) [Cardizem CD] 300 mg PO QPM 08/31/15 [History] Polyethylene Glycol 3350 [MiraLAX] 17 gm PO DAILY 08/31/15 [History] Insulin DETEMIR [Levemir] 30 unit SQ HS #100 ml 09/01/15 [Rx] Metoprolol [Lopressor] 200 mg PO BID #120 tablet 09/01/15 [Rx] Insulin ASPART [Novolog Flexpen] 0 - 18 unit SQ TID MDD per sliding scale [History] Furosemide [Lasix] 60 mg PO BID 06/07/16 [History] Spironolactone [Aldactone] 25 mg PO DAILY 06/07/16 [History] glipiZIDE [Glipizide] 10 mg PO BID 06/07/16 [History] Folic Acid 0.4 mg PO DAILY #30 tablet 06/08/16 [Rx] Thiamine (B-1) [Vitamin B-1] 100 mg PO DAILY #30 tablet 06/08/16 [Rx] Gabapentin [Neurontin] 800 mg PO TID 01/03/17 [History] Potassium Chloride 60 meq PO TID 01/03/17 [History] Sulfamethoxazole/Trimeth DS [Bactrim DS] 1 each PO BID #10 tablet 01/05/17 [Rx] 3 Allergy/AdvReac Type Severity Reaction Status Date / Time hydrocodone [From Vicodin] AdvReac Unknown Itching Verified 11/25/15 09:13 Morphine Sulfate AdvReac Unknown Vomiting Uncoded 05/17/15 09:10 All Systems Review: A 10-system review of systems was performed and is negative for pertinent findings except as documented above in the HPI. - Cardiovascular Cardiovascular: as per HPI, other (Denies recent chest discomfort, orthopnea. ) Physical Examination Vital Signs, Last 4 Hours Resp Pulse Ox 06/09/17 11:24 18 94 06/09/17 07:52 95 General: Conversant, No Apparent Distress HEENT: Atraumatic, Normocephaly, Mucus Membranes Moist Neck: No JVD, Normal carotid pulses Cardiac: Reg Rate and Rhythm, Normal S1 and S2, No Murmur, Other (Distant. ) Lungs: Other (Good effort, wheezing noted. ) Neuro: Alert and responsive, No focal deficits noted Abdomen: Soft, Non-Tender, Other (obese) Extremities: No Clubbing, No Cyanosis Results 06/09/17 01:22 06/09/17 01:22 Lab Results 06/09/17 06/09/17 06/09/17 01:22 01:22 01:22 WBC 11.2 H Hgb 13.9 Hct 41.7 Plt Count 225 INR 1.1 Sodium 136 Potassium 3.1 L Chloride 90 L Carbon Dioxide 37 H BUN 24 H Creatinine 1.32 H Glucose 215 H Calcium 9.2 - Imaging and Cardiology Echo: report reviewed - EKG Interpretation EKG results cardiology: personally reviewed Consult Discharge Plan - Plan Referrals: Yulia Casiano, [facility] [Primary Care Provider] -
[2017-06-09] MEDS: ALPRAZolam 1 MG TABLET PO PRN ×2 (12:28→21:33)
[2017-06-09] MEDS ORDERED: Diltiazem CD (24hr) 300 MG CAPSULE PO SCH (18:00)
[2017-06-09] MEDS ORDERED: Insulin LISPRO 300 UNITS/3 ML VIAL SQ SCH ×2 (21:00)
[2017-06-09] MEDS: Insulin DETEMIR 100 UNIT/ML X5UNITS SQ SCH (21:32)
[2017-06-10 01:29] LABS: Basophils % 0.1 %; Eosinophils # 0.2 K/mcL (0.0-0.6); Eosinophils % 1.9 %; Hematocrit 42.6 % (37.5-50.1); Hemoglobin 13.8 g/dL (12.9-16.9); Immature Granulocytes % 0.7 % (0-4); Lymphocytes # 1.9 K/mcL (0.6-4.6); Mean Corpuscular HGB Conc 32.4 g/dL (31.6-35.5); Mean Corpuscular Hemoglobin 28.8 pg (28.0-33.3); Mean Corpuscular Volume 88.8 fL (83.0-100.0); Mean Platelet Volume 10.9 fL (9.4-12.4); Monocytes % 10.5 %; Neutrophils # 6.7 K/mcL (1.6-8.9); Platelet Count 236 K/mcL (140-400); Red Cell Distribution Width 14.8 % (11.5-14.5); Segmented Neutrophils % 67.8 %
[2017-06-10 02:08] LABS: BUN/Creatinine Ratio 20 (6-26); Blood Urea Nitrogen 26 mg/dL (6-20); Calcium 9.7 mg/dL (8.6-10.3); Carbon Dioxide 40 mEq/L (23-29); Chloride 87 mEq/L (98-107); Glucose 224 mg/dL (70-105); Osmolality,Calculated 294 (280-300); Potassium 3.2 mEq/L (3.5-5.1); Sodium 136 mEq/L (136-145); eGFR For African Americans > 60 (> 60); eGFR For Non-African Americans 57 (> 60)
[2017-06-10] MEDS: Ipratropium/Albuterol Neb 3 ML IH SCH ×4 (03:49→21:40)
[2017-06-10] MEDS: *HR* Heparin 5,000 UNIT/ML VIAL SQ SCH ×2 (04:28→18:06)
--- NOTE | 2017-06-10 06:39 | Orthopedics Progress Note ---
Date of Encounter: 06/10/17 Time of Encounter: 06:38 Subjective Interval history: patient seen this morning for surgery today for tibial IM nail. Objective Vital signs: Vital Signs Temp Pulse Resp BP Pulse Ox 06/10/17 03:53 98.4 F 67 16 120/77 97 06/09/17 23:55 98.1 F 69 14 121/77 95 06/09/17 22:08 16 97 06/09/17 21:23 98.4 F 81 18 127/80 92 06/09/17 16:37 99.3 F 87 16 144/84 94 06/09/17 15:38 16 93 06/09/17 12:03 97.6 F 76 18 125/81 95 06/09/17 11:24 18 94 06/09/17 07:52 95 06/09/17 07:27 98.4 F 76 17 126/81 94 Intake and Output 06/09/17 06/09/17 06/10/17 15:59 23:59 07:59 Intake Total 2280 / 2280 Output Total 1525 / 1525 1275 / 1275 650 / 650 Balance 755 / 755 -1275 / -1275 -650 / -650 Intake: IV Fluids 1000 / 1000 0.9 % Sodium Chloride 1,000 ML 1000 / 1000 @ 100 mls/hr IVC .Q10H JEREMIAH Rx#: [id number] Oral 1280 / 1280 Output: Urine 1525 / 1525 1275 / 1275 650 / 650 Other: Meal Lunch Percent of Meal Consumed 100% # Voids 1 Blood Glucose* 190 236 - Labs CBC & BMP: 06/10/17 01:20 06/10/17 01:20 Labs: Abnormal lab results RDW 14.8 % (11.5-14.5) H 06/10/17 01:20 Potassium 3.2 mEq/L (3.5-5.1) L 06/10/17 01:20 Chloride 87 mEq/L (98-107) L 06/10/17 01:20 Carbon Dioxide 40 mEq/L (23-29) H* 06/10/17 01:20 BUN 26 mg/dL (6-20) H 06/10/17 01:20 Est GFR (Non-Af Amer) 57 (> 60) L 06/10/17 01:20 Glucose 224 mg/dL (70-105) H 06/10/17 01:20 POC Glucose 236 (58-89) H 06/09/17 21:31 Consult Discharge Plan - Plan Referrals: Yulia Casiano, S[facility]ARTH [Primary Care Provider] -
[2017-06-10] MEDS: Insulin LISPRO 300 UNITS/3 ML VIAL SQ SCH ×3 (07:39→20:07)
[2017-06-10] MEDS: Metoprolol 100 MG TABLET PO SCH ×2 (07:40→21:49)
--- NOTE | 2017-06-10 08:35 | Internal Med Progress Note ---
Date of Encounter: 06/10/17 Time of Encounter: 08:32 - Assessment and plan (1) Tibial fracture Current Visit: Yes Status: Acute Assessment and plan: orthopediac surgery was consulted, plan for ORIF preop medical assessment: 1. cardiology consult cleared for surgery 2. COPD and chronic hypoxic resp failure, was on 3 L NC at home at risk for periop respiratoy failure, no signs for COPD exacerbation, BIPAP perioperatively , his COPD has been stable, he denies chronic steroid use Qualifiers: Encounter type: initial encounter Tibia location: proximal physis (incl. Salter-Marin) Fracture alignment: displaced Laterality: left Qualified Code(s): S89.002A - Unspecified physeal fracture of upper end of left tibia, initial encounter for closed fracture (2) Chronic coronary artery disease Current Visit: Yes Status: Chronic Assessment and plan: had stent 15 years ago, on ASA (3) Diabetes mellitus Current Visit: No Status: Chronic Assessment and plan: continue home meds Qualifiers: Diabetes mellitus type: type 2 Diabetes mellitus complication status: with unspecified complications Diabetes mellitus group home insulin use: with group home use Qualified Code(s): E11.8 - Type 2 diabetes mellitus with unspecified complications (4) COPD (chronic obstructive pulmonary disease) Current Visit: No Status: Chronic Assessment and plan: COPD and active smoking, declined nicotine patch he was on 3 L NC at home, no signs for acute exacerbation, continue nebs Qualifiers: COPD type: emphysema Emphysema type: unspecified Qualified Code(s): J43.9 - Emphysema, unspecified (5) Hyperlipidemia Current Visit: Yes Status: Chronic Assessment and plan: continue home meds Qualifiers: Hyperlipidemia type: unspecified Qualified Code(s): E78.5 - Hyperlipidemia , unspecified (6) Sleep apnea Current Visit: No Status: Chronic Assessment and plan: periop BIPAP Qualifiers: Sleep apnea type: obstructive Qualified Code(s): G47.33 - Obstructive sleep apnea (adult) (pediatric) (7) Alcohol abuse Current Visit: Yes Status: Chronic Assessment and plan: no signs for withdrawal (8) Atrial fibrillation Current Visit: No Status: Chronic Assessment and plan: on ASA, rate controlled, consult cardiology Qualifiers: Atrial fibrillation type: paroxysmal Qualified Code(s): I48.0 - Paroxysmal atrial fibrillation (9) Hypokalemia Current Visit: No Status: Acute (10) Type 2 diabetes mellitus Current Visit: Yes Status: Chronic Qualifiers: Diabetes mellitus complication status: with neurologic complications Diabetes mellitus complication detail: with amyotrophy 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 use: with group home use Qualified Code(s): 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; Z79.4 - salvage determiner (current) use of insulin; Z79.4 - salvage determiner (current) use of insulin; Z79.4 - senior care (current ) use of insulin; Z79.4 - senior care (current) use of insulin (11) Morbid obesity with BMI of 45.0-49.9, adult Current Visit: No Status: Chronic (12) Bipolar disorder Current Visit: No Status: Chronic Qualifiers: Active/Remission status: remission status unspecified Qualified Code(s): F31.9 - Bipolar disorder, unspecified (13) DVT prophylaxis Current Visit: No Status: Acute Assessment and plan: heparin SC (14) Chronic diastolic (congestive) heart failure Current Visit: Yes Status: Chronic - Time Spent With Patient 25 - 35 minutes - Subjective Interval history: patient was admitted for left tibial fracture, pain is well controlled, he reported he had stent to heart 15 years ago, still smoking on home O2 3 L NC. has hx of CAD, CHF and atrial fib. his COPD is at the baseline, no active wheezing and SOB. He reported has recent heels infection on bactrium. Patient is doing well, denies productive cough no wheezing. He is currently on 3 L nasal cannula O2 sats 97%. Patient was seen by forest fire prevention specialist he is cleared for surgery. cardiology recommended No indication for preoperative cardiac testing prior to procedure. Consider pulmonary treatement to maximize pulmonary status prior to OR. No further cardiac recommendations. Please call with questions or concerns. - Constitutional Vitals: Temp Pulse Resp BP Pulse Ox 97.8 F 73 17 122/77 94 06/10/17 06:52 06/10/17 06:52 06/10/17 06:52 06/10/17 06:52 06/10/17 06:52 General appearance: Present: A&O X 3, no acute distress, answers questions appropriately Exam: CONSTITUTIONAL: patient appears as an age appropriate male in no acute distress. EYES Clear sclerae, bilateral pupils are equal, reactive to light. EMOI. RESPIRATORY: No accessory muscle use, bilateral reduced BS to auscultation, no wheezing, no crackles/rales. CARDIOVASCULAR: Regular heart rate, normal S1 and S2, no murmurs GASTROINTESTINAL: bowel sounds present, soft, no tenderness. MUSCULOSKELETAL: Joints in normal range of motion, no clubbing, no edema, no cyanosis. Bilateral peripheral pulses 2+. NEUROLOGIC: CN II to XII are grossly intact, no focal neurological deficit. Internal Medicine: Result - Labs CBC & Chem 7: 06/10/17 01:20 06/10/17 01:20 Labs: Short CBC 06/10/17 Range/Units 01:20 WBC 9.9 (4.3-11.1) K/mcL Hgb 13.8 (12.9-16.9) g/dL Hct 42.6 (37.5-50.1) % Plt Count 236 (140-400) K/mcL Neutrophils # 6.7 (1.6-8.9) K/mcL BMP 06/10/17 01:20 Sodium 136 Potassium 3.2 L Chloride 87 L Carbon Dioxide 40 H* BUN 26 H Creatinine 1.30 Glucose 224 H Calcium 9.7 - ABG Interpretation ABG results: PT/INR, D-dimer PT 11.3 Seconds (9.4-12.1) 06/09/17 01:22 Consult Discharge Plan - Plan Referrals: Yulia Casiano, SIDDHARTH [Primary Care Provider] -
[2017-06-10] MEDS: Spironolactone 25 MG TABLET PO SCH (08:52)
[2017-06-10] MEDS: Furosemide 40 MG TABLET PO SCH ×2 (08:52→18:06)
[2017-06-10] MEDS: Aspirin 325 MG TABLET PO SCH (08:52)
[2017-06-10] MEDS ORDERED: Tetracaine/PF 20 MG/2 ML AMPUL ONE (13:02)
--- NOTE | 2017-06-10 13:04 | Anesthesia Evaluation PreOp ---
Date of Encounter: 06/10/17 Time of Encounter: 13:02 - Past History Planned Operation: L-Tibial Nail Cardiac History: CHF (Hx acute diastolic CHF maintained on Spironolactone, lasix ), HTN (maintained on Hydrazlazine, Metorprolol), Hyperlipidemia (maintained with Atorvastatin, Fenofibrate), Arrhythmia (Hx Paroxysmal AFib rate controlled on Diltiazem, anticoagulated on ASA), Other (ECHO 01/04/2017 - Impressions: LVEF 60-65%. Normal LV chamber size and function. Mild concentric left ventricular hypertrophy. Mild left ventricular diastolic dysfunction. Normal right ventricular structure and function. Mild aortic regurgitation, which was not well evaluated. Unable to estimate RVSP due to lack of TR jet. Left Ventricular Wall Motion: Rest Echo Findings All wall segments showed normal motion.) Pulmonary History: Smoker (2ppd x 40yrs), COPD (COPD on DuoNebs, Albuterol), GORGE Dx ( Not compliant w/ CPAP) Other Medical History: Hepatic (Hx of EtOH), Diabetes Type II, GERD (maintained on Protonix) Anesthesia History: No Prior Anesthetic Complications, Past Anesthesia Alcohol Use: occasionally Drug use: none Medications and Allergies Albuterol Sulfate [Ventolin Hfa] 2 puff IH Q4H PRN 02/22/15 [History] Alprazolam [Xanax] 1 mg PO TID PRN 02/22/15 [History] Atorvastatin [Lipitor] 40 mg PO HS 02/22/15 [History] Fenofibrate [Lofibra] 160 mg PO QAM 02/22/15 [History] Hydralazine HCl 25 mg PO BID 02/22/15 [History] Oxycodone HCl/Acetaminophen [Percocet 7.5-325 mg Tablet] 1 tab PO TID PRN [History] Pantoprazole Sodium [Protonix] 40 mg PO QAM 02/22/15 [History] Beclomethasone Diprop 80mcg [QVAR 80 mcg] 1 puff IH BID 05/17/15 [History] Docusate Sodium [Colace] 100 mg PO BID 05/17/15 [History] Aspirin 325 mg PO DAILY 08/31/15 [History] Diltiazem CD (24hr) [Cardizem CD] 300 mg PO QPM 08/31/15 [History] Polyethylene Glycol 3350 [MiraLAX] 17 gm PO DAILY 08/31/15 [History] Insulin DETEMIR [Levemir] 30 unit SQ HS #100 ml 09/01/15 [Rx] Metoprolol [Lopressor] 200 mg PO BID #120 tablet 09/01/15 [Rx] Insulin ASPART [Novolog Flexpen] 0 - 18 unit SQ TID MDD per sliding scale [History] Furosemide [Lasix] 60 mg PO BID 06/07/16 [History] Spironolactone [Aldactone] 25 mg PO DAILY 06/07/16 [History] glipiZIDE [Glipizide] 20 mg PO BID 06/07/16 [History] Folic Acid 0.4 mg PO DAILY #30 tablet 06/08/16 [Rx] Thiamine (B-1) [Vitamin B-1] 100 mg PO DAILY #30 tablet 06/08/16 [Rx] Gabapentin [Neurontin] 800 mg PO TID 01/03/17 [History] Potassium Chloride 60 meq PO TID 01/03/17 [History] Alogliptin Benzoate [Alogliptin] 12.5 mg PO DAILY 06/09/17 [History] metFORMIN [Glucophage] 500 mg PO BID 06/09/17 [History] 3 Allergy/AdvReac Type Severity Reaction Status Date / Time hydrocodone [From Vicodin] AdvReac Unknown Itching Verified 11/25/15 09:13 Morphine Sulfate AdvReac Unknown Vomiting Uncoded 05/17/15 09:10 - Meds/Allergy Pre-op Review Medications Reviewed: Yes Allergies Reviewed: Yes Beta Blockers on Current Med List: Yes (Metoprolol) If Beta Blockers taken, Date/Time (Last Dose taken): 06/10/2017 @ 0740 Anesthesia Results - Labs 06/10/17 01:20 06/10/17 09:14 Laboratory Results WBC 9.9 K/mcL (4.3-11.1) 06/10/17 01:20 RBC 4.80 M/mcL (4.19-5.50) 06/10/17 01:20 Hgb 13.8 g/dL (12.9-16.9) 06/10/17 01:20 Hct 42.6 % (37.5-50.1) 06/10/17 01:20 MCV 88.8 fL (83.0-100.0) 06/10/17 01:20 MCH 28.8 pg (28.0-33.3) 06/10/17 01:20 MCHC 32.4 g/dL (31.6-35.5) 06/10/17 01:20 RDW 14.8 % (11.5-14.5) H 06/10/17 01:20 Plt Count 236 K/mcL (140-400) 06/10/17 01:20 MPV 10.9 fL (9.4-12.4) 06/10/17 01:20 Immature Gran % 0.7 % (0-4) 06/10/17 01:20 Seg Neutrophils % 67.8 % 06/10/17 01:20 Lymphocytes % 19.0 % 06/10/17 01:20 Monocytes % 10.5 % 06/10/17 01:20 Eosinophils % 1.9 % 06/10/17 01:20 Basophils % 0.1 % 06/10/17 01:20 Neutrophils # 6.7 K/mcL (1.6-8.9) 06/10/17 01:20 Lymphocytes # 1.9 K/mcL (0.6-4.6) 06/10/17 01:20 Monocytes # 1.0 K/mcL (0.0-1.3) 06/10/17 01:20 Eosinophils # 0.2 K/mcL (0.0-0.6) 06/10/17 01:20 Basophils # 0.0 K/mcL (0.0-0.2) 06/10/17 01:20 PT 11.3 Seconds (9.4-12.1) 06/09/17 01:22 INR 1.1 06/09/17 01:22 Sodium 136 mEq/L (136-145) 06/10/17 01:20 Potassium 3.0 mEq/L (3.5-5.1) L 06/10/17 09:14 Chloride 87 mEq/L (98-107) L 06/10/17 01:20 Carbon Dioxide 40 mEq/L (23-29) H* 06/10/17 01:20 BUN 26 mg/dL (6-20) H 06/10/17 01:20 Creatinine 1.30 mg/dL (0.70-1.30) 06/10/17 01:20 Est GFR ( Amer) > 60 (> 60) 06/10/17 01:20 Est GFR (Non-Af Amer) 57 (> 60) L 06/10/17 01:20 BUN/Creatinine Ratio 20 (6-26) 06/10/17 01:20 Glucose 224 mg/dL (70-105) H 06/10/17 01:20 POC Glucose 236 (58-89) H 06/09/17 21:31 Calculated Osmolality 294 (280-300) 06/10/17 01:20 Calcium 9.7 mg/dL (8.6-10.3) 06/10/17 01:20 Anesthesia Exam Vital Signs Temp Pulse Resp BP Pulse Ox 06/10/17 13:00 70 18 147/90 92 06/10/17 11:53 98.0 F 71 17 119/80 93 06/10/17 10:56 17 94 06/10/17 06:52 97.8 F 73 17 122/77 94 06/10/17 03:53 98.4 F 67 16 120/77 97 06/09/17 23:55 98.1 F 69 14 121/77 95 06/09/17 22:08 16 97 06/09/17 21:23 98.4 F 81 18 127/80 92 06/09/17 16:37 99.3 F 87 16 144/84 94 06/09/17 15:38 16 93 Intake and Output 06/09/17 06/10/17 06/10/17 23:59 07:59 15:59 Output Total 1275 / 1275 650 / 650 Balance -1275 / -1275 -650 / -650 Output: Urine 1275 / 1275 650 / 650 Other: # Voids 1 Blood Glucose* 236 186 202 Height: 6' Weight: 262# BMI = 36 NPO (# of Hours): MNOc - HEENT Pupil (Motor): Pupils equal, EOMI Mallampati: III Teeth: Edentulous Oral Opening: Greater than 3 - NETWORK DEVELOPER LOC: Oriented NETWORK DEVELOPER Motor: Normal RUE, Normal LUE, Normal RLE, Normal LLE, Normal Face NETWORK DEVELOPER Sensory: Normal: RUE, LUE, RLE, LLE, Face - Cardiac Rhythm: Regular Murmur: None - Pulmonary Breath Sounds: bilateral Clear Respiratory Effort: Symmetrical Anesthesia Assess/Plan ASA Score: 3, 4 (Obesity, GORGE, HTN, Chol, DM, EtOHism, COPD, Smoker) Modified [place] Scale for Level of Consciousness: Cooperative, oriented, and tranquil Anesthetic Plan: General, Regional Monitoring Plan: Standard Monitors Recovery Plan: PACU Anes Supervising Prov Stmt: Pt seen/evaluated, R&B discussed, questions answered and consent obtained. Rufus Valerio MD
[2017-06-10] MEDS ORDERED: Metoclopramide 10 MG/2 ML VIAL ONE (13:11)
[2017-06-10] MEDS ORDERED: Famotidine 20 MG/2 ML VIAL ONE (13:11)
[2017-06-10] MEDS ORDERED: Acetaminophen IV 1,000 MG/100 ML INFUS..BTL ONE (13:11)
[2017-06-10] MEDS ORDERED: *HR* Midazolam HCl 2 MG/2 ML VIAL ONE (13:12)
[2017-06-10] MEDS ORDERED: Pregabalin 50 MG CAPSULE ONE (13:26)
[2017-06-10] MEDS ORDERED: *HR* FentaNYL (PF) 100 MCG/2 ML VIAL ONE ×2 (13:31→14:39)
[2017-06-10] MEDS ORDERED: Propofol 500 MG/50 ML INFUS..BTL ONE (13:31)
[2017-06-10] MEDS ORDERED: CeFAZolin Syr 3,000MG/30 ML 3,000 MG/30 ML SYRINGE IVPB ONE (13:39)
[2017-06-10] MEDS ORDERED: Bupivacaine/Clonidine Syringe 1 EACH SYRINGE ONE (13:41)
[2017-06-10] MEDS ORDERED: *HR* Ropivacaine/PF 0.5% 20 ML VIAL ONE (13:41)
[2017-06-10] MEDS ORDERED: Dexamethasone 4 MG/ML VIAL ONE (14:39)
[2017-06-10] MEDS ORDERED: Lidocaine -MPF 2% 2 ML VIAL ONE (14:39)
[2017-06-10] MEDS ORDERED: Ondansetron 4 MG/2 ML VIAL ONE (14:39)
[2017-06-10] MEDS ORDERED: *HR* Succinylcholine 200 MG/10 ML VIAL IVP ONE (14:40)
--- NOTE | 2017-06-10 14:45 | Orthopedic Operative Note ---
Date of procedure: 06/10/17 Pre-op diagnosis: Displaced left distal tibia fracture Post-op diagnosis: same Procedure: Procedure: Left tibia open reduction intramedullary nail fixation Estimated blood loss: 500cc Hardware: synthes tibial nail 10 x 375 ; 2 locking bolts: Patient was brought to the operating room and placed on the operating room table. After general anesthesia was administered. The operative leg was prepped and draped in the sterile surgical fashion. The patient received IV antibiotics prior to skin incision. A medial parapatellar tendon approach was performed the incision was made through the skin and subcutaneous tissue. Hemostasis was obtained with Bovie cautery. A medial parapatellar tendon incision was made, the entry point was identified. This was confirmed with fluoroscopy. Using fluoroscopic assistance a guidepin was placed at the entry point. It was overreamed with the proximal reamer. A beaded guidewire was placed through the entry hole down the tibia across the fracture site into the distal fragment was confirmed with fluoroscopy. The tibia was sized to 10 x 375, the appropriate nail length was placed over the guidepin down the proximal tibia across the fracture site into the distal fragment. Positionof the hardware as well as fracture reduction was confirmed with fluoroscopy to be well aligned. Utilizing the proximal locking guide proximal locking goal was placed through a medial incision. This was confirmed with fluoroscopy. Distal fixation was performed utilizing fluoroscopy from medial to lateral and standard AO techniques. Position of the hardware as well as fracture reduction found to be acceptable in the AP and lateral planes. The incisions were irrigated, locking bolt incisions were closed with skin margi, the medial parapatellar tendon approach was closed with a running #1 PDS suture, subcutaneous tissues during closed deep #1 PDS suture superficially with 0 PDS suture skin was closed with skin margi and Dermabond. Patient was placed in a sterile dressing postoperative brace The patient was extubated and tolerated the procedure well and transferred to the recovery room in stable condition. Anesthesia: GETA Surgeon: Clauido Fletcher Was there an economic research assistant present: Yes Steel Rule Die Maker: Gabbi Vargas Estimated blood loss (cc): 50 Condition: stable Disposition: PACU
--- NOTE | 2017-06-10 14:47 | Anesthesia Procedures ---
Date of Encounter: 06/10/17 Time of Encounter: 13:40 Procedures: Anesthesia - Nerve Block Procedure Date: 06/10/17 Time: 13:40 Allergies/Adv Reactions: vicodin, morphine Pre-op Diagnosis: left istal tib-fib fracture Surgical Procedure: left tibial nail Checklist: Correct Patient Identifier, Correct procedure, History checked Correct side: Left Blood Thinner: No Monitor Applied: EKG, BP, Pulse Oximetry Supplemental Oxygen via Nasal Cannula (L/min): 2 Sedation: Versed (mg): 2 Sedation: Fentanyl (mcg): 100 Pre-op Neuro Deficits: No Block Type: Femoral Catheter placed: No Sterile Technique: Yes Ultrasound used: Yes Anatomy identified: Yes Visual spread of Local: Yes Neuro Stimulation: Yes Nerve Stimulator Range: 0.2 - 0.4 mA Blood on Needle Aspiration: No Smooth Injection of Local: No Pain with Injection of Local: No Prep: Chlorhexadine Needle: 22 x 50 mm Stimuplex Local: 0.25% Bupivicaine w/Clonidine 20 mcg/cc, Ropivacaine Volume (cc): ropivacaine 0.5% 20ml Number of Attempts: 1 Complications: None/effective block Vitals: VSS
[2017-06-10] MEDS ORDERED: *HR* Labetalol 20 MG/4 ML SYRINGE IVP PRN (14:50)
[2017-06-10] MEDS ORDERED: Ondansetron 4 MG/2 ML VIAL IVP ONE (14:50)
[2017-06-10] MEDS ORDERED: *HR* Promethazine 25 MG/ML VIAL IVP PRN (14:50)
[2017-06-10] MEDS ORDERED: *HR* Metoprolol 5 MG/5 ML VIAL IVP ONE (15:04)
--- NOTE | 2017-06-10 16:05 | Anesthesia Evaluation Post Op ---
Date of Encounter: 06/10/17 Time of Encounter: 16:03 - Vital Signs Vital Signs: Vital Signs/O2 Sat, Most Current Temp Pulse Resp BP Pulse Ox 98.4 F 89 20 133/92 93 06/10/17 15:47 06/10/17 16:00 06/10/17 16:00 06/10/17 16:00 06/10/17 16:00 - Lungs Lungs: Clear Ascult./Percussion - Airway Airway: Non-obstructed - Cardiovascular Regular Rate - Mental Status Mental Status: Alert & Oriented, Answers Appropriately - Pain Pain Scale: 5 Pain Scale used: Numeric (1 - 10) - Nausea Vomiting Nausea Vomiting: Not Present - Hydration Hydration: Ice chips, Has not voided Notes: 06/10/17 16:04 patients oxygen saturation dips into high 80s, despite being on nasal cannula oxygen. When encouraged to deep breathe, saturationimproves. Order for bi-pap on floor placed. - Discharge PostOp Status: Transfer Patient to floor
[2017-06-10] MEDS ORDERED: Naloxone 0.4 MG/ML INJ IVP PRN (16:42)
[2017-06-10] MEDS ORDERED: *HR* LORazepam 2 MG/ML VIAL IVP PRN ×3 (16:42)
[2017-06-10] MEDS ORDERED: D5% in Water 1,000 ML IVC PRN (16:42)
[2017-06-10] MEDS ORDERED: ALPRAZolam 1 MG TABLET PO PRN (16:42)
[2017-06-10] MEDS ORDERED: Ipratropium/Albuterol Neb 3 ML IH PRN (16:42)
[2017-06-10] MEDS ORDERED: Dextrose Gel 15 GM/37.5 ML TUBE PO PRN ×2 (16:42)
[2017-06-10] MEDS ORDERED: *HR* Dextrose 50 % in Water (Syg) 50 ML SYRINGE IVP PRN (16:42)
[2017-06-10] MEDS ORDERED: Acetaminophen 325 MG TABLET PO PRN (16:42)
[2017-06-10] MEDS ORDERED: Diltiazem CD (24hr) 300 MG CAPSULE PO SCH (18:00)
[2017-06-10] MEDS: CeFAZolin Syr 3,000MG/30 ML 3,000 MG/30 ML SYRINGE IVPB SCH (18:07)
[2017-06-10] MEDS ORDERED: Insulin LISPRO 300 UNITS/3 ML VIAL SQ SCH (21:00)
[2017-06-10] MEDS ORDERED: Insulin DETEMIR 100 UNIT/ML X5UNITS SQ SCH (21:00)
[2017-06-10] MEDS: *HR* OxyCODONE/APAP 7.5/325 TABLET PO PRN (22:29)
[2017-06-11] MEDS: CeFAZolin Syr 3,000MG/30 ML 3,000 MG/30 ML SYRINGE IVPB SCH (01:10)
[2017-06-11] MEDS: Ipratropium/Albuterol Neb 3 ML IH SCH ×2 (04:20→11:46)
[2017-06-11] MEDS: *HR* Heparin 5,000 UNIT/ML VIAL SQ SCH (06:28)
--- NOTE | 2017-06-11 06:36 | Orthopedics Progress Note ---
Date of Encounter: 06/11/17 Time of Encounter: 06:36 Subjective Interval history: Patient was seen this morning doing well without complaints. Afebrile vital signs stable. Operative extremity: Neurovascularly intact Dressing clean dry and intact Calves nontender Assessment and plan: Continue with postoperative care Stable for discharge 50% weightbearing Objective Vital signs: Vital Signs Temp Pulse Resp BP Pulse Ox 06/11/17 04:20 19 94 06/11/17 03:56 98.1 F 68 20 109/68 96 06/10/17 23:56 98.1 F 64 20 105/64 97 06/10/17 21:41 22 97 06/10/17 20:27 98.2 F 83 20 156/69 94 06/10/17 17:30 97.6 F 87 20 125/79 93 06/10/17 17:00 97.3 F L 83 18 136/84 94 06/10/17 16:00 98.4 F 89 20 133/92 93 06/10/17 15:47 98.4 F 92 20 127/87 94 06/10/17 15:37 92 20 146/98 96 06/10/17 15:27 93 20 150/86 94 06/10/17 15:17 97.9 F 89 20 160/112 94 06/10/17 13:45 74 18 138/93 95 06/10/17 13:30 72 18 139/72 94 06/10/17 13:15 72 16 135/88 92 06/10/17 13:00 70 18 147/90 92 06/10/17 11:53 98.0 F 71 17 119/80 93 06/10/17 10:56 17 94 06/10/17 06:52 97.8 F 73 17 122/77 94 Intake and Output 06/10/17 06/10/17 06/11/17 15:59 23:59 07:59 Intake Total 330 / 330 550 / 550 Output Total 50 / 50 1000 / 1000 475 / 475 Balance -50 / -50 -670 / -670 75 / 75 Intake: IV Fluids 30 / 30 Ancef Syringe 3,000 MG/30 ML 3, 30 / 30 000 mg In 30 ml @ 200 mls/hr IVPB Q8HR [facility] Rx#:[id number] Oral 300 / 300 550 / 550 Output: Urine 1000 / 1000 475 / 475 Estimated Blood Loss 50 / 50 Other: Blood Glucose* 207 294 - Labs CBC & BMP: 06/10/17 01:20 06/10/17 09:14 Labs: Abnormal lab results RDW 14.8 % (11.5-14.5) H 06/10/17 01:20 Potassium 3.0 mEq/L (3.5-5.1) L 06/10/17 09:14 Chloride 87 mEq/L (98-107) L 06/10/17 01:20 Carbon Dioxide 40 mEq/L (23-29) H* 06/10/17 01:20 BUN 26 mg/dL (6-20) H 06/10/17 01:20 Est GFR (Non-Af Amer) 57 (> 60) L 06/10/17 01:20 Glucose 224 mg/dL (70-105) H 06/10/17 01:20 POC Glucose 294 (58-89) H 06/10/17 20:30 - VTE Documentation of Mechanical Device: Intermittent pneumatic compression device Consult Discharge Plan - Plan Referrals: Yulia Casiano, INDUSTRIAL ORGANIZATION MANAGER [Primary Care Provider] -
[2017-06-11 07:15] VITALS: BP 130/78
[2017-06-11 07:27] LABS: Hematocrit 41.3 % (37.5-50.1); Hemoglobin 13.6 g/dL (12.9-16.9)
[2017-06-11] MEDS ORDERED: Insulin LISPRO 300 UNITS/3 ML VIAL SQ SCH (07:30)
[2017-06-11] MEDS: Furosemide 40 MG TABLET PO SCH (08:36)
[2017-06-11] MEDS: *HR* OxyCODONE/APAP 7.5/325 TABLET PO PRN (08:36)
[2017-06-11] MEDS: Metoprolol 100 MG TABLET PO SCH (08:36)
[2017-06-11] MEDS ORDERED: Spironolactone 25 MG TABLET PO SCH (09:00)
[2017-06-11] MEDS ORDERED: Aspirin 325 MG TABLET PO SCH (09:00)
--- NOTE | 2017-06-11 10:12 | Discharge Summary ---
Orders not resulted at time of discharge: Pending orders 06/08/17 18:05 Consult to [place] [CONS] Routine 06/08/17 20:31 Consult to Orthopedic Surgery [CONS] Routine 06/10/17 08:40 Consult to Physical Therapy [CONS] Routine 06/10/17 16:42 Consult to Occupational Therapy [CONS] Routine Consult to Orthopedic Navigator [CONS] [CONS] Routine Consult to Physical Therapy [CONS] Routine RT Post Op Consult [CONS] Routine 06/12/17 04:00 Hemoglobin and Hematocrit [HEME] AM 0400 Date of Encounter: 06/11/17 Time of Encounter: 09:00 - Discharge Diagnosis (1) Tibial fracture Priority: Primary Status: Acute Qualifiers: Encounter type: initial encounter Tibia location: proximal physis (incl. Salter[place]Marin) Fracture alignment: displaced Laterality: left Qualified Code(s): S89.002A - Unspecified physeal fracture of upper end of left tibia, initial encounter for closed fracture (2) Alcohol abuse Priority: Secondary Status: Chronic (3) Chronic coronary artery disease Priority: Secondary Status: Chronic (4) Chronic diastolic (congestive) heart failure Priority: Secondary Status: Chronic (5) Hyperlipidemia Priority: Secondary Status: Chronic Qualifiers: Hyperlipidemia type: unspecified Qualified Code(s): E78.5 - Hyperlipidemia , unspecified (6) Type 2 diabetes mellitus Priority: Secondary Status: Chronic Qualifiers: Diabetes mellitus complication status: with neurologic complications Diabetes mellitus complication detail: with amyotrophy Diabetes mellitus residential insulin use: with residential use Qualified Code(s): 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 Moore is a 56 year old male with Hx of A Fib, CHF, COPD, DM, GORGE, CAD s/p stent, present to [place] ER for fall and left leg pain. Pt said the road is slippery and he fell and twisted his left ankle. Denies LOS. Denies head/neck injury. Denies pain in other part of body except left lower extremity. Pt denies SOB, CP, nausea, or ABD pain. Orthopedics was consulted by ER and plan for surgery in AM. Pt was transferred to our hospital for further management. 06/11/17: Patient had an uneventful hospital course. He underwent left tibia open reduction intramedullary nail fixation on 06/10/2017. He had uncomplicated hospital course. He is now wearing a leg brace. His vitals remained stable. He was mildly hypokalemic and this was replaced. He otherwise remained hemodynamically stable and was deemed stable for discharge. Continue on aspirin for DVT prophylaxis. He will follow-up with orthopedic surgery as scheduled. Discharge discussed with: patient Time spent discussing smoking cessation with patient: 3 to 10 minutes - Time Spent with Patient Total time spent providing and/or coordinating discharge services: Less than 30 minutes - Discharge Medications Home Medications: Albuterol Sulfate [Ventolin Hfa] 2 puff IH Q4H PRN 02/22/15 [History] Alprazolam [Xanax] 1 mg PO TID PRN 02/22/15 [History] Atorvastatin [Lipitor] 40 mg PO HS 02/22/15 [History] Fenofibrate [Lofibra] 160 mg PO QAM 02/22/15 [History] Hydralazine HCl 25 mg PO BID 02/22/15 [History] Oxycodone HCl/Acetaminophen [Percocet 7.5-325 mg Tablet] 1 tab PO TID PRN [History] Pantoprazole Sodium [Protonix] 40 mg PO QAM 02/22/15 [History] Beclomethasone Diprop 80mcg [QVAR 80 mcg] 1 puff IH BID 05/17/15 [History] Docusate Sodium [Colace] 100 mg PO BID 05/17/15 [History] Aspirin 325 mg PO DAILY 08/31/15 [History] Diltiazem CD (24hr) [Cardizem CD] 300 mg PO QPM 08/31/15 [History] Polyethylene Glycol 3350 [MiraLAX] 17 gm PO DAILY 08/31/15 [History] Insulin DETEMIR [Levemir] 30 unit SQ HS #100 ml 09/01/15 [Rx] Metoprolol [Lopressor] 200 mg PO BID #120 tablet 09/01/15 [Rx] Insulin ASPART [Novolog Flexpen] 0 - 18 unit SQ TID MDD per sliding scale [History] Furosemide [Lasix] 60 mg PO BID 06/07/16 [History] Spironolactone [Aldactone] 25 mg PO DAILY 06/07/16 [History] glipiZIDE [Glipizide] 20 mg PO BID 06/07/16 [History] Folic Acid 0.4 mg PO DAILY #30 tablet 06/08/16 [Rx] Thiamine (B-1) [Vitamin B-1] 100 mg PO DAILY #30 tablet 06/08/16 [Rx] Gabapentin [Neurontin] 800 mg PO TID 01/03/17 [History] Potassium Chloride 60 meq PO TID 01/03/17 [History] Alogliptin Benzoate [Alogliptin] 12.5 mg PO DAILY 06/09/17 [History] metFORMIN [Glucophage] 500 mg PO BID 06/09/17 [History] Allergies/Adverse Reactions: 3 Allergy/AdvReac Type Severity Reaction Status Date / Time hydrocodone [From Vicodin] AdvReac Unknown Itching Verified 11/25/15 09:13 Morphine Sulfate AdvReac Unknown Vomiting Uncoded 05/17/15 09:10 Date of admission: 06/08/17 20:28 Primary care physician: Yulia Casiano CNP Consults: 06/08/17 18:05 Consult to [place] [CONS] Routine Reason for SW Consult: discharge planning 06/08/17 20:31 Consult to Cardiology [CONS] Routine Comment: Consulting Provider: Cardiology [facility] Reason for Consult: Hx of CAD, A Fib and CHF, need surgery for fracture, evalaute cardiac risk Call Completed: No Consult to Orthopedic Surgery [CONS] Routine Consulting Provider: Orthoped[facility] Reason for Consult: Fracture. Dr Fletcher Called by Sujit morgan ER Call Completed: Yes 06/10/17 08:40 Consult to Physical Therapy [CONS] Routine Comment: Evaluate, develop and implement POC Reason for Consult: weakness 06/10/17 16:42 Consult to Occupational Therapy [CONS] Routine Comment: Evaluate, develop and implement POC Reason for Consult: Postop protocol Consult to Orthopedic Navigator [CONS] [CONS] Routine Consult to Physical Therapy [CONS] Routine Comment: Evaluate, develop and implement POC Reason for Consult: 50% weight bearing left lower extremity RT Post Op Consult [CONS] Routine Discharging clinician: José Luis Colin Anticipated date of discharge: 06/11/17 - Constitutional Vitals: Temp Pulse Resp BP Pulse Ox 97.6 F 65 18 130/78 92 06/11/17 07:08 06/11/17 07:08 06/11/17 07:08 06/11/17 07:08 06/11/17 07:08 General appearance: Present: A&O X 3, no acute distress, answers questions appropriately - Head Head exam: Present: atraumatic, normocephalic - Neck Neck exam general surgery: Present: supple, trachea midline. Absent: lymphadenopathy - Respiratory Respiratory exam: Present: CTAB (Occasional expiratory wheeze, clears with cough ) - Cardiovascular Cardiovascular exam: Present: RRR, +S1, +S2. Absent: diastolic murmur, gallop, rubs, systolic murmur - GI/Abdominal GI/Abdominal exam: Present: normal bowel sounds, soft, no peritoneal signs. Absent: distended, tenderness - Extremities Exam Extremities exam: Present: warm, radial pulses palpable and symmetrical. Absent : calf tenderness, cyanotic, pedal edema - Neurological Exam Neurological exam: Present: CN II-XII intact, oriented X3, no focal deficits. Absent: pronater drift, facial droop, speech deficit - Skin Skin exam: Present: dry, intact - Patient Status Disposition: Home, Self-Care Condition: Good Functional capacity at discharge: uses cane/walker (50% weightbear) Overall status at discharge: patient is progressing back to baseline - Discharge Instructions Follow Up With: Yulia Casiano [employer]CH[employer]ICAL DESIGN ENGINE[employer] [Primary Care Provider] - - VTE Documentation of Mechanical Device: Intermittent pneumatic compression device
--- NOTE | 2017-06-11 11:33 | Physician Discharge Referral ---
Home Health/Hosp Referral Info Transfer to: Home Health Attending Provider: jacy cutler Provider in Charge Post Discharge: PCP - Diagnosis (1) Tibial fracture Priority: Primary Status: Acute (2) Alcohol abuse Priority: Secondary Status: Chronic (3) Chronic coronary artery disease Priority: Secondary Status: Chronic (4) Chronic diastolic (congestive) heart failure Priority: Secondary Status: Chronic (5) Hyperlipidemia Priority: Secondary Status: Chronic (6) Type 2 diabetes mellitus Priority: Secondary Status: Chronic - Respiratory Orders Smoking Cessation: Smoking cessation has been advised. For more information, call the [place] Tobacco Quit Line at 0-217-GOND-NOW. - Diet/Nutrition Diet/Nutrition Orders: Regular - Activity Activity Orders: Up ad gal - Services Needed Following services are medically necessary services: Nursing, Home Health Aide, Physical Therapy, Occupational Therapy - Transfer Medications Prescriptions: Aspirin 325 mg PO DAILY 30 Days #30 tablet Home Medications: Albuterol Sulfate [Ventolin Hfa] 2 puff IH Q4H PRN 02/22/15 [History] Alprazolam [Xanax] 1 mg PO TID PRN 02/22/15 [History] Atorvastatin [Lipitor] 40 mg PO HS 02/22/15 [History] Fenofibrate [Lofibra] 160 mg PO QAM 02/22/15 [History] Hydralazine HCl 25 mg PO BID 02/22/15 [History] Oxycodone HCl/Acetaminophen [Percocet 7.5-325 mg Tablet] 1 tab PO TID PRN [History] Pantoprazole Sodium [Protonix] 40 mg PO QAM 02/22/15 [History] Beclomethasone Diprop 80mcg [QVAR 80 mcg] 1 puff IH BID 05/17/15 [History] Docusate Sodium [Colace] 100 mg PO BID 05/17/15 [History] Aspirin 325 mg PO DAILY 08/31/15 [History] Diltiazem CD (24hr) [Cardizem CD] 300 mg PO QPM 08/31/15 [History] Polyethylene Glycol 3350 [MiraLAX] 17 gm PO DAILY 08/31/15 [History] Insulin DETEMIR [Levemir] 30 unit SQ HS #100 ml 09/01/15 [Rx] Metoprolol [Lopressor] 200 mg PO BID #120 tablet 09/01/15 [Rx] Insulin ASPART [Novolog Flexpen] 0 - 18 unit SQ TID MDD per sliding scale [History] Furosemide [Lasix] 60 mg PO BID 06/07/16 [History] Spironolactone [Aldactone] 25 mg PO DAILY 06/07/16 [History] glipiZIDE [Glipizide] 20 mg PO BID 06/07/16 [History] Folic Acid 0.4 mg PO DAILY #30 tablet 06/08/16 [Rx] Thiamine (B-1) [Vitamin B-1] 100 mg PO DAILY #30 tablet 06/08/16 [Rx] Gabapentin [Neurontin] 800 mg PO TID 01/03/17 [History] Potassium Chloride 60 meq PO TID 01/03/17 [History] Alogliptin Benzoate [Alogliptin] 12.5 mg PO DAILY 06/09/17 [History] metFORMIN [Glucophage] 500 mg PO BID 06/09/17 [History] Acetaminophen [Tylenol] 650 mg PO Q6HR PRN tablet 06/11/17 [Rx] Aspirin 325 mg PO DAILY 30 Days #30 tablet 06/11/17 [Rx] Atorvastatin [Lipitor] 40 mg PO HS tablet 06/11/17 [Rx] Insulin DETEMIR [Levemir] 30 unit SQ HS [id number] 06/11/17 [Rx] Ipratropium/Albuterol Neb [Duoneb] 3 ml IH [id number] PRN inhsol 06/11/17 [Rx] Ipratropium/Albuterol Neb [Duoneb] 3 ml IH [id number] inhsol 06/11/17 [Rx] OxyCODONE/APAP 7.5/325 [Percocet 7.5/325 MG] 1 each PO Q6HR PRN 7 Days #30 tablet 06/11/17 [Rx] Allergies/Adverse Reactions: 3 Allergy/AdvReac Type Severity Reaction Status Date / Time hydrocodone [From Vicodin] AdvReac Unknown Itching Verified 11/25/15 09:13 Morphine Sulfate AdvReac Unknown Vomiting Uncoded 05/17/15 09:10 Certification: Further, I certify that my clinical findings support that this patient is homebound (i.e. absences from home require considerable and taxing effort and are for medical reasons or advent services or infrequently or short duration when for other reasons) because: Homebound Reason: Patient requires assistance of a person or device to safely leave home Attestation: My signature below is to certify that this patient is under my care and that I, or nurse practitioner, or a physician's clinical education assistant working with me, has a face-to -face encounter with this patient.
--- NOTE | 2017-06-14 09:04 | Electrocardiograph Report ---
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
== END 2017-06-11 12:18 | disposition home or self-care (01) | DRG 313 ==
LOC: 3NENU → SUATTDRO 20:28
PROVIDERS: ADMIT Internal Medicine; ATTEND Hospitalist

== ENCOUNTER 2019-09-20 01:58 | Observation (INO) ==
[2019-09-20] MEDS ORDERED: Ondansetron ODT 4 MG TAB.RAPDIS SL PRN (02:49)
[2019-09-20] MEDS ORDERED: Naloxone 0.4 MG/ML INJ IVP PRN (02:49)
[2019-09-20 03:41] LABS: INR 1.4; Prothrombin Time 16.1 Seconds (9.4-12.1)
[2019-09-20 03:43] LABS: Basophils % 0.3 %; Eosinophils % 0.3 %; Hematocrit 37.5 % (37.5-50.1); Hemoglobin 11.3 g/dL (12.9-16.9); Immature Granulocytes % 1.4 % (0-4); Lymphocytes # 2.3 K/mcL (0.6-4.6); Lymphocytes % 17.2 %; Mean Corpuscular HGB Conc 30.1 g/dL (31.6-35.5); Mean Corpuscular Volume 93.1 fL (83.0-100.0); Mean Platelet Volume 11.7 fL (9.4-12.4); Monocytes # 1.4 K/mcL (0.0-1.3); Monocytes % 10.7 %; Neutrophils # 9.2 K/mcL (1.6-8.9); Nucleated Red Blood Cells 0.2 /100 WBC (0); Platelet Count 271 K/mcL (140-400); Red Blood Count 4.03 M/mcL (4.19-5.50); Red Cell Distribution Width 15.8 % (11.5-14.5); Segmented Neutrophils % 70.1 %; White Blood Count 13.1 K/mcL (4.3-11.1)
[2019-09-20 07:04] LABS: Calcium 8.7 mg/dL (8.6-10.3); Magnesium 1.8 mg/dL (1.6-2.6); Phosphorous 4.8 mg/dL (2.7-4.5); Potassium 5.9 mEq/L (3.5-5.1)
[2019-09-20 11:23] LABS: Calcium 8.8 mg/dL (8.6-10.3); Potassium 5.7 mEq/L (3.5-5.1)
[2019-09-20] MEDS ORDERED: ALPRAZolam 1 MG TABLET PO PRN (15:13)
[2019-09-20] MEDS ORDERED: *HR* OxyCODONE/APAP 7.5/325 TABLET PO PRN (15:13)
[2019-09-20] MEDS ORDERED: polyethylene glycoL 3350 17 GM POWD.PACK PO PRN (15:13)
[2019-09-20] MEDS ORDERED: *HR* Dextrose 50 % in Water (Syg) 50 ML SYRINGE IVP PRN (15:41)
[2019-09-20] MEDS ORDERED: Dextrose Gel 15 GM/37.5 ML TUBE PO PRN ×2 (15:41)
[2019-09-20] MEDS ORDERED: D5% in Water 1,000 ML IVC PRN (15:41)
[2019-09-20] MEDS: Ipratropium/Albuterol Neb 3 ML IH SCH ×2 (16:25→21:36)
[2019-09-20] MEDS: Insulin LISPRO 300 UNITS/3 ML VIAL SQ SCH (16:58)
[2019-09-20 17:40] LABS: Uric Acid 11.1 mg/dL (2.3-7.6)
[2019-09-20] MEDS: Gabapentin 400 MG CAPSULE PO SCH (19:31)
[2019-09-20] MEDS: Apixaban 5 MG TABLET PO SCH (19:31)
[2019-09-20] MEDS: Metoprolol 100 MG TABLET PO SCH (19:31)
[2019-09-20] MEDS: hydrALAZINE 25 MG TABLET PO SCH (20:10)
[2019-09-20] MEDS: DilTIAZem CD (24hr) 180 MG CAP.ER.24H PO SCH (20:50)
[2019-09-20] MEDS: Insulin DETEMIR 100 UNIT/ML X5UNITS SQ SCH (20:54)
[2019-09-20] MEDS ORDERED: QUEtiapine Fumarate 25 MG TABLET PO SCH (21:00)
[2019-09-20] MEDS ORDERED: INSULIN DEGLUDEC 40 UNIT SQ SCH (21:00)
[2019-09-21 03:06] LABS: Basophils % 0.2 %; Eosinophils # 0.1 K/mcL (0.0-0.6); Hematocrit 35.3 % (37.5-50.1); Hemoglobin 10.6 g/dL (12.9-16.9); Lymphocytes # 2.2 K/mcL (0.6-4.6); Lymphocytes % 21.7 %; Mean Corpuscular Hemoglobin 27.7 pg (28.0-33.3); Mean Corpuscular Volume 92.2 fL (83.0-100.0); Mean Platelet Volume 11.1 fL (9.4-12.4); Monocytes # 1.1 K/mcL (0.0-1.3); Monocytes % 10.9 %; Neutrophils # 6.5 K/mcL (1.6-8.9); Platelet Count 206 K/mcL (140-400); Red Blood Count 3.83 M/mcL (4.19-5.50); Red Cell Distribution Width 15.8 % (11.5-14.5); Segmented Neutrophils % 65.2 %; White Blood Count 9.9 K/mcL (4.3-11.1)
[2019-09-21 03:13] LABS: BUN/Creatinine Ratio 17 (6-26); Blood Urea Nitrogen 24 mg/dL (8-23); Calcium 8.7 mg/dL (8.6-10.3); Carbon Dioxide 32 mEq/L (23-29); Chloride 99 mEq/L (98-107); Glucose 128 mg/dL (70-105); Osmolality,Calculated 286 (280-300); Potassium 4.3 mEq/L (3.5-5.1); Sodium 135 mEq/L (136-145); eGFR For African Americans > 60 (> 60); eGFR For Non-African Americans 52 (> 60)
[2019-09-21] MEDS: Ipratropium/Albuterol Neb 3 ML IH SCH ×2 (04:36→11:23)
[2019-09-21] MEDS: Metoprolol 100 MG TABLET PO SCH (06:43)
[2019-09-21] MEDS: hydrALAZINE 25 MG TABLET PO SCH (07:37)
[2019-09-21] MEDS: Gabapentin 400 MG CAPSULE PO SCH (07:37)
[2019-09-21] MEDS: Apixaban 5 MG TABLET PO SCH (07:37)
[2019-09-21] MEDS: DilTIAZem CD (24hr) 180 MG CAP.ER.24H PO SCH (07:38)
[2019-09-21] MEDS: Insulin LISPRO 300 UNITS/3 ML VIAL SQ SCH (07:38)
[2019-09-21] MEDS: Insulin DETEMIR 100 UNIT/ML X5UNITS SQ SCH (07:41)
[2019-09-21] MEDS ORDERED: allopurinoL 100 MG TABLET PO SCH (09:00)
[2019-09-21] MEDS ORDERED: acetaZOLAMIDE 250 MG TABLET PO SCH (09:00)
[2019-09-21] MEDS ORDERED: Aspirin 325 MG TABLET PO SCH (09:00)
[2019-09-21] MEDS ORDERED: Fenofibrate 54 MG TABLET PO SCH (09:00)
[2019-09-21] MEDS ORDERED: Spironolactone 25 MG TABLET PO SCH (09:00)
[2019-09-21] MEDS ORDERED: DilTIAZem CD (24hr) 180 MG CAP.ER.24H PO SCH (09:00)
[2019-09-21 11:13] VITALS: BP 128/71
== END 2019-09-21 12:33 | disposition home health service (06) ==
LOC: 2NNU → SUATTDRO 01:58
PROVIDERS: ADMIT Family Medicine; ATTEND Internal Medicine

== ENCOUNTER 2019-12-11 10:41 | Observation (INO) ==
[2019-12-11] MEDS ORDERED: Ondansetron 4 MG/2 ML VIAL IVP PRN (14:02)
[2019-12-11] MEDS ORDERED: Naloxone 0.4 MG/ML INJ IVP PRN (14:02)
[2019-12-11 14:28] VITALS: BP 136/84
[2019-12-11] MEDS ORDERED: *HR* Dextrose 50 % in Water (Vial) 50 ML VIAL IVP PRN (14:48)
[2019-12-11] MEDS ORDERED: Dextrose Gel 15 GM/37.5 ML TUBE PO PRN ×2 (14:48)
[2019-12-11] MEDS ORDERED: D5% in Water 1,000 ML IVC PRN (14:48)
[2019-12-11] MEDS ORDERED: Ipratropium/Albuterol Neb 3 ML IH PRN (14:54)
[2019-12-11] MEDS ORDERED: Lactulose Oral Soln 20 GM/30 ML UDC PO SCH (15:45)
[2019-12-11] MEDS ORDERED: Furosemide 40 MG/4 ML VIAL IVP SCH (15:45)
[2019-12-11] MEDS ORDERED: Insulin LISPRO 300 UNITS/3 ML VIAL SQ SCH ×2 (16:30→21:00)
[2019-12-11] MEDS ORDERED: Apixaban 5 MG TABLET PO SCH (21:00)
== END 2019-12-11 16:08 | disposition left against medical advice (07) ==
LOC: 3ANU
PROVIDERS: ADMIT Internal Medicine; ATTEND Internal Medicine

== ENCOUNTER 2020-01-09 09:08 | Inpatient (IN) ==
[2020-01-09] MEDS ORDERED: Naloxone 0.4 MG/ML INJ IVP PRN (14:50)
[2020-01-09] MEDS ORDERED: ALPRAZolam 1 MG TABLET PO PRN (15:06)
[2020-01-09] MEDS: Ipratropium/Albuterol Neb 3 ML IH SCH ×2 (15:25→21:54)
[2020-01-09 15:37] LABS: ABG Base Excess 13 mEq/L (-2 to 3); ABG HCO3 43 mEq/L (21-27); ABG Oxygen Saturation 94 % (95-98); ABG PCO2 82 mmHg (35-45); ABG PH 7.32 pH Units (7.32-7.45); ABG PO2 83 mmHg (85-104); ABG TCO2 45 mEq/L (20-26); Blood Gas Pressure Support 16 cm H2O
[2020-01-09] MEDS: Insulin LISPRO 300 UNITS/3 ML VIAL SQ SCH (16:44)
[2020-01-09 18:01] LABS: Adenovirus Not Detected (Not Detect); Coronavirus 229E Not Detected (Not Detect); Coronavirus HKU1 Not Detected (Not Detect); Coronavirus NL63 Not Detected (Not Detect); Coronavirus OC43 Not Detected (Not Detect); Human Metapneumovirus Not Detected (Not Detect)
[2020-01-09 18:02] LABS: Bordetella Pertussis Not Detected (Not Detect); Chlamydophila pneumoniae Not Detected (Not Detect); Human Rhinovirus/Enterovirus Not Detected (Not Detect); Influenza A Subtype 2009 H1 Not Detected (Not Detect); Influenza B Not Detected (Not Detect); Mycoplasma pneumoniae Not Detected (Not Detect); Parainfluenza Virus 1 Not Detected (Not Detect); Parainfluenza Virus 2 Not Detected (Not Detect); Parainfluenza Virus 3 Not Detected (Not Detect); Parainfluenza Virus 4 Not Detected (Not Detect); Respiratory Syncytial Virus Not Detected (Not Detect)
[2020-01-09] MEDS ORDERED: Torsemide 20 MG TABLET PO SCH (19:00)
[2020-01-09] MEDS: Insulin DETEMIR 100 UNIT/ML X5UNITS SQ SCH (20:40)
[2020-01-09] MEDS: Azithromycin 500 MG in 0.9 % Sodium Chloride 250 ML IVPB SCH (20:41)
[2020-01-09] MEDS: Furosemide 40 MG/4 ML VIAL IVP SCH (20:41)
[2020-01-09] MEDS: Gabapentin 400 MG CAPSULE PO SCH (20:42)
[2020-01-09] MEDS: ALPRAZolam 1 MG TABLET PO SCH (20:42)
[2020-01-09] MEDS: QUEtiapine Fumarate 25 MG TABLET PO SCH (20:42)
[2020-01-09] MEDS: Metoprolol 100 MG TABLET PO SCH (20:42)
[2020-01-09] MEDS: hydrALAZINE 25 MG TABLET PO SCH (20:43)
[2020-01-09] MEDS: Apixaban 5 MG TABLET PO SCH (20:43)
[2020-01-09] MEDS ORDERED: Furosemide 40 MG/4 ML VIAL IVP SCH (21:00)
[2020-01-09] MEDS: Budesonide/Formoterol 160/4.5 1 PUFF INH IH SCH (21:54)
[2020-01-10] MEDS: Ipratropium/Albuterol Neb 3 ML IH SCH ×4 (03:48→22:41)
[2020-01-10 06:24] LABS: Basophils % 0.2 %; Eosinophils % 0.1 %; Hematocrit 39.5 % (37.5-50.1); Hemoglobin 11.5 g/dL (12.9-16.9); Immature Granulocytes % 0.4 % (0-4); Lymphocytes # 1.2 K/mcL (0.6-4.6); Lymphocytes % 15.4 %; Mean Corpuscular HGB Conc 29.1 g/dL (31.6-35.5); Mean Corpuscular Hemoglobin 27.5 pg (28.0-33.3); Mean Corpuscular Volume 94.5 fL (83.0-100.0); Mean Platelet Volume 11.1 fL (9.4-12.4); Monocytes # 0.8 K/mcL (0.0-1.3); Monocytes % 10.5 %; Neutrophils # 5.9 K/mcL (1.6-8.9); Platelet Count 158 K/mcL (140-400); Red Blood Count 4.18 M/mcL (4.19-5.50); Red Cell Distribution Width 16.5 % (11.5-14.5); Segmented Neutrophils % 73.4 %
[2020-01-10 06:48] LABS: Chol/HDL Ratio 3.7 (0-4.9)
[2020-01-10 06:50] LABS: BUN/Creatinine Ratio 23 (6-26); Blood Urea Nitrogen 30 mg/dL (8-23); Calcium 9.5 mg/dL (8.6-10.3); Carbon Dioxide 41 mEq/L (23-29); Chloride 94 mEq/L (98-107); Glucose 130 mg/dL (70-105); Magnesium 1.8 mg/dL (1.6-2.6); Osmolality,Calculated 300 (280-300); Potassium 3.8 mEq/L (3.5-5.1); Sodium 141 mEq/L (136-145); eGFR For African Americans > 60 (> 60); eGFR For Non-African Americans 57 (> 60)
[2020-01-10 06:59] LABS: Thyroid Stimulating Hormone 7.173 mcIU/mL (0.340-5.600)
[2020-01-10 07:09] LABS: Folate 9.7 ng/mL (3.0-16.0)
[2020-01-10 07:10] LABS: Vitamin B12 556 pg/mL (250-1100)
[2020-01-10] MEDS: Metoprolol 100 MG TABLET PO SCH ×2 (07:46→21:02)
[2020-01-10] MEDS: Apixaban 5 MG TABLET PO SCH ×2 (07:47→21:02)
[2020-01-10] MEDS: hydrALAZINE 25 MG TABLET PO SCH ×2 (07:47→21:01)
[2020-01-10] MEDS: predniSONE 20 MG TABLET PO SCH (07:47)
[2020-01-10] MEDS: Fenofibrate 54 MG TABLET PO SCH (07:47)
[2020-01-10] MEDS: Gabapentin 400 MG CAPSULE PO SCH ×3 (07:48→21:01)
[2020-01-10] MEDS: Aspirin Enteric Coated 81 MG Tablet PO SCH (07:48)
[2020-01-10] MEDS: ALPRAZolam 1 MG TABLET PO SCH ×2 (07:48→21:02)
[2020-01-10] MEDS: Nicotine 21 MG PATCH.TD24 TD SCH (07:48)
[2020-01-10] MEDS: allopurinoL 100 MG TABLET PO SCH (07:48)
[2020-01-10] MEDS: *HR* Amiodarone 200 MG TABLET PO SCH (07:48)
[2020-01-10] MEDS: Spironolactone 25 MG TABLET PO SCH (07:48)
[2020-01-10] MEDS: cefTRIAXone 1,000 MG in 0.9 % Sodium Chloride Mini Bag 100 ML IVPB SCH (07:49)
[2020-01-10] MEDS: Furosemide 40 MG/4 ML VIAL IVP SCH (07:52)
[2020-01-10] MEDS: Insulin LISPRO 300 UNITS/3 ML VIAL SQ SCH ×6 (07:59→17:52)
[2020-01-10 08:03] LABS: Estimated Average Glucose 160 mg/dl
[2020-01-10 08:10] LABS: Triiodothyronine (T3) Free 2.18 pg/mL (2.50-3.90)
[2020-01-10] MEDS: Budesonide/Formoterol 160/4.5 1 PUFF INH IH SCH ×2 (10:17→22:41)
[2020-01-10 16:50] LABS: Hepatitis B Surface Antigen Nonreactive (Nonreactive)
[2020-01-10 17:20] LABS: Hepatitis B Core IgM Nonreactive (Nonreactive)
[2020-01-10 17:21] LABS: Hepatitis A Antibody IgM Nonreactive (Nonreactive)
[2020-01-10 18:40] LABS: Hepatitis C Virus Antibody Reactive (Nonreactive)
[2020-01-10] MEDS: Azithromycin 500 MG in 0.9 % Sodium Chloride 250 ML IVPB SCH (20:57)
[2020-01-10] MEDS: QUEtiapine Fumarate 25 MG TABLET PO SCH (21:02)
[2020-01-10] MEDS: Insulin DETEMIR 100 UNIT/ML X5UNITS SQ SCH (21:02)
[2020-01-11] MEDS: Ipratropium/Albuterol Neb 3 ML IH SCH ×4 (03:22→22:20)
[2020-01-11] MEDS: Gabapentin 400 MG CAPSULE PO SCH ×3 (08:49→21:12)
[2020-01-11] MEDS: hydrALAZINE 25 MG TABLET PO SCH ×2 (08:49→21:12)
[2020-01-11] MEDS: Aspirin Enteric Coated 81 MG Tablet PO SCH (08:51)
[2020-01-11] MEDS: allopurinoL 100 MG TABLET PO SCH (08:53)
[2020-01-11] MEDS: Spironolactone 25 MG TABLET PO SCH (08:54)
[2020-01-11] MEDS: predniSONE 20 MG TABLET PO SCH (08:55)
[2020-01-11] MEDS: Metoprolol 100 MG TABLET PO SCH ×2 (08:56→21:13)
[2020-01-11] MEDS: Apixaban 5 MG TABLET PO SCH ×2 (08:56→21:12)
[2020-01-11] MEDS: *HR* Amiodarone 200 MG TABLET PO SCH (08:56)
[2020-01-11] MEDS: Fenofibrate 54 MG TABLET PO SCH (08:57)
[2020-01-11] MEDS: ALPRAZolam 1 MG TABLET PO SCH ×2 (08:58→21:12)
[2020-01-11] MEDS: Nicotine 21 MG PATCH.TD24 TD SCH (09:00)
[2020-01-11] MEDS: Torsemide 20 MG TABLET PO SCH (09:01)
[2020-01-11] MEDS: Insulin LISPRO 300 UNITS/3 ML VIAL SQ SCH ×6 (09:02→17:36)
[2020-01-11] MEDS: Budesonide/Formoterol 160/4.5 1 PUFF INH IH SCH ×2 (10:32→22:20)
[2020-01-11] MEDS: cefTRIAXone 1,000 MG in 0.9 % Sodium Chloride Mini Bag 100 ML IVPB SCH (13:01)
[2020-01-11] MEDS ORDERED: Azithromycin 250 MG TABLET PO SCH (20:00)
[2020-01-11] MEDS: QUEtiapine Fumarate 25 MG TABLET PO SCH (21:12)
[2020-01-11] MEDS: Insulin DETEMIR 100 UNIT/ML X5UNITS SQ SCH (21:13)
[2020-01-12 00:43] LABS: Hematocrit 39.3 % (37.5-50.1); Hemoglobin 11.3 g/dL (12.9-16.9); Mean Corpuscular HGB Conc 28.8 g/dL (31.6-35.5); Mean Corpuscular Volume 93.8 fL (83.0-100.0); Mean Platelet Volume 11.1 fL (9.4-12.4); Red Blood Count 4.19 M/mcL (4.19-5.50); Red Cell Distribution Width 16.3 % (11.5-14.5)
[2020-01-12 00:55] LABS: BUN/Creatinine Ratio 21 (6-26); Blood Urea Nitrogen 29 mg/dL (8-23); Calcium 9.1 mg/dL (8.6-10.3); Carbon Dioxide 42 mEq/L (23-29); Chloride 95 mEq/L (98-107); Glucose 189 mg/dL (70-105); Magnesium 1.9 mg/dL (1.6-2.6); Osmolality,Calculated 303 (280-300); Potassium 4.4 mEq/L (3.5-5.1); Sodium 141 mEq/L (136-145); eGFR For African Americans > 60 (> 60); eGFR For Non-African Americans 54 (> 60)
[2020-01-12] MEDS: Ipratropium/Albuterol Neb 3 ML IH SCH ×3 (03:40→15:47)
[2020-01-12 06:31] LABS: Mixed Venous Blood pCO2 83 mmHg (44-46); Mixed Venous Blood pH 7.36 pH Units (7.34-7.36); Mixed Venous Blood pO2 49 mmHg (35-45)
[2020-01-12] MEDS: Insulin LISPRO 300 UNITS/3 ML VIAL SQ SCH ×4 (08:18→12:15)
[2020-01-12] MEDS: hydrALAZINE 25 MG TABLET PO SCH (08:30)
[2020-01-12] MEDS: Aspirin Enteric Coated 81 MG Tablet PO SCH (08:30)
[2020-01-12] MEDS: Fenofibrate 54 MG TABLET PO SCH (08:30)
[2020-01-12] MEDS: *HR* Amiodarone 200 MG TABLET PO SCH (08:31)
[2020-01-12] MEDS: predniSONE 20 MG TABLET PO SCH (08:31)
[2020-01-12] MEDS: Metoprolol 100 MG TABLET PO SCH (08:31)
[2020-01-12] MEDS: allopurinoL 100 MG TABLET PO SCH (08:31)
[2020-01-12] MEDS: Gabapentin 400 MG CAPSULE PO SCH (08:31)
[2020-01-12] MEDS: Spironolactone 25 MG TABLET PO SCH (08:31)
[2020-01-12] MEDS: Torsemide 20 MG TABLET PO SCH (08:31)
[2020-01-12] MEDS: Apixaban 5 MG TABLET PO SCH (08:31)
[2020-01-12] MEDS: Nicotine 21 MG PATCH.TD24 TD SCH (08:32)
[2020-01-12] MEDS: cefTRIAXone 1,000 MG in 0.9 % Sodium Chloride Mini Bag 100 ML IVPB SCH (08:33)
[2020-01-12] MEDS: ALPRAZolam 1 MG TABLET PO SCH (08:34)
[2020-01-12] MEDS: Budesonide/Formoterol 160/4.5 1 PUFF INH IH SCH (11:21)
[2020-01-12 14:26] VITALS: BP 125/88
== END 2020-01-12 15:56 | disposition home health service (06) | DRG 140 ==
LOC: 2NNU 12:55 → SUATTDRO 12:55 → INTOOBSV 12:55 → 3ANU 01-10 22:15
PROVIDERS: ADMIT Internal Medicine; ATTEND Internal Medicine

== ENCOUNTER 2020-01-28 15:36 | Observation (INO) ==
[2020-01-28] MEDS ORDERED: Naloxone 0.4 MG/ML INJ IVP PRN (20:34)
[2020-01-28] MEDS ORDERED: Dextrose Gel 15 GM/37.5 ML TUBE PO PRN ×2 (20:38)
[2020-01-28] MEDS ORDERED: D5% in Water 1,000 ML IVC PRN (20:38)
[2020-01-28] MEDS ORDERED: *HR* Dextrose 50 % in Water (Vial) 50 ML VIAL IVP PRN (20:38)
[2020-01-28] MEDS ORDERED: Apixaban 5 MG TABLET PO SCH (21:00)
[2020-01-28] MEDS ORDERED: Metoprolol 100 MG TABLET PO SCH (21:00)
[2020-01-28] MEDS: QUEtiapine Fumarate 25 MG TABLET PO SCH (23:24)
[2020-01-28] MEDS: Gabapentin 400 MG CAPSULE PO SCH (23:24)
[2020-01-28] MEDS: Insulin DETEMIR 100 UNIT/ML X5UNITS SQ SCH (23:24)
[2020-01-28] MEDS: Insulin LISPRO 300 UNITS/3 ML VIAL SQ SCH (23:24)
[2020-01-29] MEDS ORDERED: Ipratropium/Albuterol Neb 3 ML IH PRN (07:37)
[2020-01-29] MEDS: Insulin LISPRO 300 UNITS/3 ML VIAL SQ SCH ×3 (07:49→17:04)
[2020-01-29] MEDS: Gabapentin 400 MG CAPSULE PO SCH ×3 (09:35→21:30)
[2020-01-29] MEDS: Lactulose Oral Soln 20 GM/30 ML UDC PO SCH (09:36)
[2020-01-29] MEDS: *HR* Amiodarone 200 MG TABLET PO SCH (09:36)
[2020-01-29] MEDS: Aspirin 81 MG TAB.CHEW PO SCH (09:36)
[2020-01-29] MEDS: allopurinoL 100 MG TABLET PO SCH (09:36)
[2020-01-29 09:59] LABS: Amylase 24 Units/L (29-103); Lipase 27 Units/L (11-82)
[2020-01-29 10:13] LABS: Basophils % 0.2 %
[2020-01-29 10:14] LABS: Albumin 3.9 g/dL (3.5-5.7); Albumin/Globulin Ratio 1.3 (1.1-2.2); Bilirubin,Total 0.8 mg/dL (0.3-1.0); Calcium 9.2 mg/dL (8.6-10.3); Eosinophils # 0.1 K/mcL (0.0-0.6); Eosinophils % 2.2 %; Globulin 2.9 g/dL (2.4-3.5); Immature Granulocytes % 0.4 % (0-4); Lymphocytes # 1.2 K/mcL (0.6-4.6); Lymphocytes % 20.9 %; Mean Corpuscular HGB Conc 28.6 g/dL (31.6-35.5); Mean Corpuscular Hemoglobin 27.6 pg (28.0-33.3); Mean Corpuscular Volume 96.6 fL (83.0-100.0); Mean Platelet Volume 11.9 fL (9.4-12.4); Monocytes # 0.7 K/mcL (0.0-1.3); Monocytes % 11.8 %; Neutrophils # 3.6 K/mcL (1.6-8.9); Platelet Count 125 K/mcL (140-400); Potassium 3.5 mEq/L (3.5-5.1); Red Blood Count 4.35 M/mcL (4.19-5.50); Red Cell Distribution Width 16.7 % (11.5-14.5); Segmented Neutrophils % 64.5 %; Total Protein 6.8 g/dL (6.4-8.9); White Blood Count 5.5 K/mcL (4.3-11.1)
[2020-01-29 10:42] LABS: Platelet Estimate Slight Decrease (Normal)
[2020-01-29 10:43] LABS: Anisocytosis 1+ (Not Present); Large Platelets Present (Not Present)
[2020-01-29] MEDS ORDERED: Furosemide 20 MG/2 ML VIAL IVP ONE (16:53)
[2020-01-29] MEDS: Apixaban 5 MG TABLET PO SCH (21:29)
[2020-01-29] MEDS: Insulin DETEMIR 100 UNIT/ML X5UNITS SQ SCH (21:30)
[2020-01-29] MEDS: QUEtiapine Fumarate 25 MG TABLET PO SCH (21:30)
[2020-01-29] MEDS ORDERED: ALPRAZolam 1 MG TABLET PO PRN (22:38)
[2020-01-30 02:25] LABS: Basophils % 0.2 %; Immature Granulocytes % 0.4 % (0-4); Red Cell Distribution Width 16.6 % (11.5-14.5)
[2020-01-30 02:28] LABS: Eosinophils # 0.1 K/mcL (0.0-0.6); Eosinophils % 2.2 %; Hematocrit 41.1 % (37.5-50.1); Hemoglobin 11.7 g/dL (12.9-16.9); Immature Platelets 6.6 % (1.1-6.1); Lymphocytes % 18.8 %; Mean Corpuscular HGB Conc 28.5 g/dL (31.6-35.5); Mean Corpuscular Hemoglobin 27.6 pg (28.0-33.3); Mean Corpuscular Volume 96.9 fL (83.0-100.0); Mean Platelet Volume 11.2 fL (9.4-12.4); Monocytes # 0.6 K/mcL (0.0-1.3); Monocytes % 12.3 %; Neutrophils # 3.4 K/mcL (1.6-8.9); Platelet Count 125 K/mcL (140-400); Red Blood Count 4.24 M/mcL (4.19-5.50); Segmented Neutrophils % 66.1 %; White Blood Count 5.1 K/mcL (4.3-11.1)
[2020-01-30 02:48] LABS: Alanine Aminotransferase 9 Units/L (7-52); Albumin 3.8 g/dL (3.5-5.7); Albumin/Globulin Ratio 1.3 (1.1-2.2); Alkaline Phosphatase 66 Units/L (34-104); Aspartate Amino Transferase 12 Units/L (13-39); BUN/Creatinine Ratio 15 (6-26); Bilirubin,Total 0.9 mg/dL (0.3-1.0); Blood Urea Nitrogen 19 mg/dL (8-23); Calcium 9.2 mg/dL (8.6-10.3); Carbon Dioxide 43 mEq/L (23-29); Chloride 96 mEq/L (98-107); Globulin 2.9 g/dL (2.4-3.5); Glucose 100 mg/dL (70-105); Magnesium 2.1 mg/dL (1.6-2.6); Osmolality,Calculated 302 (280-300); Potassium 3.7 mEq/L (3.5-5.1); Sodium 145 mEq/L (136-145); Total Protein 6.7 g/dL (6.4-8.9); eGFR For African Americans > 60 (> 60); eGFR For Non-African Americans 56 (> 60)
[2020-01-30 03:00] LABS: Anisocytosis 1+ (Not Present); Macrocytosis Present (Not Present); Platelet Estimate Slight Decrease (Normal)
[2020-01-30 07:50] VITALS: BP 113/76
[2020-01-30] MEDS: Insulin LISPRO 300 UNITS/3 ML VIAL SQ SCH (09:12)
[2020-01-30] MEDS: Lactulose Oral Soln 20 GM/30 ML UDC PO SCH (09:12)
[2020-01-30] MEDS: allopurinoL 100 MG TABLET PO SCH (09:13)
[2020-01-30] MEDS: Apixaban 5 MG TABLET PO SCH (09:13)
[2020-01-30] MEDS: Gabapentin 400 MG CAPSULE PO SCH (09:13)
[2020-01-30] MEDS: Aspirin 81 MG TAB.CHEW PO SCH (09:14)
[2020-01-30] MEDS: *HR* Amiodarone 200 MG TABLET PO SCH (09:14)
== END 2020-01-30 11:08 | disposition home health service (06) ==
LOC: 2ANU → SUATTDRO 19:22
PROVIDERS: ADMIT Internal Medicine; ATTEND Internal Medicine